=== PATIENT | male | born 1955 | race Caucasian/White ===

== ENCOUNTER 2023-07-12 14:17 | Outpatient (OUT) | payer MEDICARE, SELFPAY ==
--- NOTE | 2023-07-12 14:25 | ECG_ITS ---
[facility] Test Date: 2023-07-12 Pat Name: NATHAN ALBARRAN Department: Room: - Gender: Male [employer]: : 1955 Requested By: EDWARD GILLESPIE Order Number: [id number] Reading MD: AN FRANCE Measurements Intervals [place] Rate: 68 P: 15 NH: 213 QRS: 8 QRSD: 92 T: 36 QT: 376 QTc: 401 Interpretive Statements SINUS RHYTHM WITH FIRST DEGREE AV BLOCK Compared to ECG 02/03/2021 09:45:38 First degree AV block now present Electronically Signed On 07-12-2023 21:49:24 EDT by AN FRANCE
[2023-07-12 15:21] LABS: Basophils Absolute Auto 0.1 10^3/uL (0.0-0.1); Basophils Percent Auto 1.2 % (0.2-2.0); Eosinophils Absolute Auto 0.2 10^3/uL (0.0-0.7); Eosinophils Percent Auto 2.7 % (0.9-7.0); Hematocrit 48.2 % (42.0-54.0); Hemoglobin 16.5 g/dL (14.0-18.0); Immature Granulocytes Abs Auto 0.02 10^3/uL (0.00-0.03); Immature Granulocytes Pct Auto 0.3 % (0.0-0.5); Lymphocytes Absolute Auto 1.4 10^3/uL (1.2-3.8); Lymphocytes Percent Auto 20.5 % (20.5-60.0); Mean Corpuscular HGB Conc 34.2 g/dL (29.9-35.2); Mean Corpuscular Hemoglobin 31.8 pg (25.9-34.0); Mean Corpuscular Volume 92.9 fL (80.0-94.0); Monocytes Absolute Auto 0.6 10^3/uL (0.3-0.8); Monocytes Percent Auto 8.3 % (1.7-12.0); Neutrophils Absolute Auto 4.6 10^3/uL (1.4-6.5); Platelet Count 173 10^3/uL (150-450); Red Blood Count 5.19 10^6/uL (4.70-6.10); Red Cell Distribution Width 13.1 % (11.0-15.0); White Blood Count 6.8 10^3/uL (4.0-11.0)
[2023-07-12 15:30] LABS: Alanine Aminotransferase 40 U/L (16-63); Albumin Globulin Ratio 1.1; Albumin Level 3.4 g/dL (3.4-5.0); Alkaline Phosphatase 44 U/L (46-116); Anion Gap 13.4; Aspartate Amino Transferase 26 U/L (15-37); BUN Creatinine Ratio 12.2; Bilirubin Total 0.5 mg/dL (0.2-1.0); Calcium 8.4 mg/dL (8.5-10.1); Carbon Dioxide 24.5 mmol/L (21.0-32.0); Chloride 106 mmol/L (98-107); Estimated GFR (African America >60 (>=60); Estimated GFR (Non-African Ame >60 (>=60); Globulin 3.2 g/dL; Glucose 140 mg/dL (74-106); Potassium 3.9 mmol/L (3.5-5.1); Sodium 140 mmol/L (136-145); Total Protein 6.6 g/dL (6.4-8.2)
[2023-07-12 15:34] LABS: INR 1.02; Prothrombin Time 10.8 sec (9.0-11.6)
== END 2023-07-12 14:18 | disposition home or self-care (01) ==
LOC: PST 14:22
PROVIDERS: Visit Provider Urology
DX: Z01.810 Encounter for preprocedural cardiovascular examination (principal); Z01.812 Encounter for preprocedural laboratory examination; N20.0 Calculus of kidney
CPT/HCPCS: 80053; 85025; 85610; 85730; 93005

== ENCOUNTER 2023-07-26 06:35 | Day surgery (SDC) | payer MEDICARE, SELFPAY ==
[2023-07-12 14:35] VITALS: BP 121/69; PULSE 92; RESP 16; TEMP 36.3; O2SAT 97; BMI 28.6
--- NOTE | 2023-07-16 10:13 | CM.NOTE ---
Received a notification from the hospital oncology social work that this patient has transportation issues and wanted to stay in the hospital after his procedure due to lack of transportation. I did contact this patient and he stated he could get his neighbor to bring him. When asked if the neighbor can stay with him here at the hospital and take him home after the outpatient procedure, he stated well, I am not sure the transmission will make it in the car. I asked the patient how will the car get home from here if the neighbor drives it here, he continued to say I don't know. I am on a limited income. I informed the patient that insurance companies usually do not allow for a patient to stay in the hospital due to transportation issues overnight. I informed the patient if he arrives and does need assistance with transportation, the hospital could help him make arrangements. I offered the number to [employer], the patient denied stating he is not sure how that would work. I stated he has 10 days prior to his surgery to make arrangements. The patient mentioned he lives in [place] and I suggested he speak with Dr. Calloway or his office to see if the procedure could be done closer to his home due to his transportation issues. The patient did not want to make any calls for this nor to try and arrange his own transportation but did call the hospital to see if he could spend the night. I again offered other assistance to give him phone numbers of other transportation companies and the patient denied at this time.
[2023-07-26] VITALS (14 sets, daily range): BP systolic 103–127; BP diastolic 56–73; PULSE 65–102; RESP 14–20; TEMP 36.4–36.6; O2SAT 93–95; BMI 29.2
--- OUTSIDE RECORDS SUMMARY | 2023-07-26 06:39 | XMS_ITS | CCD ---
Author Organization [facility] Care Team Providers Care Regulatory Affairs Director Name Role Phone VERNA, DR LEON Admitting Unavailable CALLOWAY, DR LEON Attending Unavailable [facility] Primary Care Unavaila ble CALLOWAY, DR LEON Consulting Unavailable BARBARA, DEN Consulting Unavailable DORKOSKIE, ANA Consulting Unavailable CALLOWAY, DR LEON Admitting Unavailable CALLOWAY, DR LEON Attending Unavailable CALLOWAY, DR LEON Consulting Unavailable CALLOWAY, DR LEON Admitting Unavailable CALLOWAY, DR ELON Attending Unavailable [facility] Primary Care Unavaila ble CALLOWAY, DR LEON Consulting Unavailable [facility], . Primary Care Physician [phone] [facility] Primary Care Provider ILIR Moeller Emergency Provider [facility] Primary Care Provider ILIR Moeller Emergency Provider MD Edward Calloway Attending Provider [phone] [facility] Primary Care Provider Charu, [facility] Kylie E Emergency Provider DO Boris Zayas Attending Provider [phone] [facility] Primary Care Provider [phone] Charu, [employer] Kylie E Emergency Provider DO Boris Zayas Referring Provider DO Manfred Foster Attending Provider ILIR Fregoso Emergency Provider DO Edward Sandoval Emergency Provider MD Corie Dee Attending Provider DO Phil Castaneda Emergency Provider [facility] Primary Care Provider DO Boris Zayas Other Provider MD Elicia Malone Jr Emergency Provider DO Boris Zayas Attending Provider [facility] Primary Care Provider [phone] NO FAMILY, PHYSICIAN Primary Care Provider Unava ilable ILIR De Leon Attending Provider ILIR De Leon Attending Provider MD Edward Calloway Attending Provider [phone] [facility] Primary Care Provider MD Edward Calloway Attending Provider ILIR De Leon Attending Provider DO Boris Zayas Referring Provider ILIR De Leon Attending Provider DO Boris Zayas Referring Provider [facility] Primary Care Provider [phone] DO uJaquin Mendez Emergency Provider VICTORINO Tee Emergency Provider DO Phil Castaneda Emergency Provider [facility] Primary Care Provider Charu [facility] Kyl[facility] E Emergency Provider [phone] MD Edward Calloway Attending Provider [phone] Edward CALLOWAY Attending Unavailable Edward CALLOWAY Attending Unavailable Edward CALLOWAY Attending Unavailable Edward CALLOWAY Attending Unavailable [facility] Primary Care Provider DO Juaquin Mendez Emergency Provider VICTORINO Tee Emergency Provider DO Phil Castaneda Emergency Provider [phone] Charu [facility] Kylie E Emergency Provider MD Edward Calloway Attending Provider Speedy - S, DO Derrell Manuel Attending Provider DO Boris Zayas Other Provider Edward Calloway Attending Unavailable Edward Calloway Admitting [facility]available [facility] Primary Care Unavaila ble [facility] Primary Care Unavaila ble Bullimprateek, Kylie E Attending Unavailable Bullimore, Kylie E Admitting Unavailable [facility] Primary Care Unavaila ble Valerio Tee Attending Unavailable Valerio Tee Admitting Unavailable [facility] Primary Care Unavaila ble Phil Castaneda Attending Unavailable Phil Castaneda Admitting Unavailable Elicia Malone Jr Attending Unavailable Elicia Malone Jr Admitting Unavailable [facility] Primary Care Unavaila ble [facility] Primary Care Unavaila ble Phil Castaneda Attending Unavailable Phil Castaneda Admitting Unavailable [facility] Primary Care Unavaila ble Juaquin Mendez Attending Unavailable Juaquin Mendez Admitting Unavailable [facility] Primary Care Unavaila ble Phil Castaneda A Admitting Unavailable Phil Castaneda Attending Unavailable [facility] Primary Care Unavaila ble Edward Sandoval Admitting Unavailable Edward Sandoval Attending Unavailable Boris Zayas Referring Unavailable Che De Leon Attending Unavailab le Che De Leon Admitting Unavailab le [facility] Primary Care Unavaila ble [facility] Primary Care Unavaila ble Edward Sandoval Attending Unavailable Edward Sandoval Admitting Unavailable [facility] Primary Care Unavaila ble Edward Calloway Attending Unavailable Edward Calloway Admitting Unavailable [facility] Primary Care Unavaila ble Edward Calloway Admitting Unavailable Edward Calloway Attending Unavailable [facility] Primary Care Unavaila ble Robertck - Amber, Derrell Manuel Attending Unava ilable Boris Zayas Consulting Unavailable [facility] - [facility], Derrell Manuel Admitting Unava ilable [facility] Primary Care Unavaila ble Ketverttodd, Corie Attending Unavailable Boris Zayas Consulting Unavailable Beenavertis, Corie Admitting Unavailable Boris Zayas Attending Unavailable Boris Zayas Admitting Unavailable NO FAMILY, PHYSICIAN Primary Care Unavailable Allergies Allergy Classification Reported Allergen(s) Allergy Type Date of Onset Reaction(s) Facility (1 source) bee venom Drug allergy (disorder) 7 [facility] (20 sources) GRAPEFRUIT EXTRACT; Translations: [Grapefruit] Drug Allergy 2 Swelling (morphologic abnormality) [facility] (1 source) Latex Drug allergy (disorder) [facility] (6 sources) Bee/Wasp/Ant venom; Translations: [Bee Stings] Drug allergy Swelling (morphologic abnormality) [facility] (19 sources) bee venom protein (honey bee); Translations: [bee venom protein (honey bee)] Allergy to substance 2 Anaphylaxis [facility] (1 source) GRAPEFRUIT EXTRACT Drug Allergy 4 [facility] Medications Current Medications Medication Drug Class(es) Dates Sig (Normalized) Sig (Original) atorvastatin 40 mg oral tablet (20 sources) HMG-CoA Reductase Inhibitor Start: 08-07-2022 take 40 mg by mouth once daily Atorvastatin Active 40 MG PO Daily August 07, 2022 12:00am Start: 06-02-2019 End: 06-15-2022 take 40 mg by mouth once daily Atorvastatin Discontinu ed 40 MG PO Daily June 02, 2019 1:00am June 15, 2022 2:47pm lisinopril 40 mg oral tablet (20 sources) Angiotensin Converting Enzyme Inhibitor Start: 06-11-2019 take 1 tablet by mouth once daily lisinopril 40 mg Tab 40 mg = 1 tab(s), Oral, Daily Start Date: 06/11/19 Status: Ordered Start: 08-24-2017 take 20 mg by mouth once daily at bedtime Lisinopril Active 20 MG PO Daily at bedtime August 24, 2017 12:00am Start: 08-24-2017 take 40 mg by mouth once daily at bedtime Lisinopril Active 40 MG PO Daily at bedtime August 24, 2017 12:00am [place] (1 source) Start: 06-04-2019 take 1 mg by mouth three times daily lithium 300 mg Cap mg cap(s), Oral, TID, Refills(s) 0 Start Date: 06/04/19 Status: Ordered metFORMIN hydrochloride 500 mg oral tablet (18 sources) Biguanide Start: 06-15-2022 take 500 mg by mouth once daily Metformin Active 500 MG PO Daily June 15, 2022 1:00am omeprazole 40 mg delayed release oral capsule (20 sources) Proton Pump Inhibitor Start: 06-11-2019 take 40 mg by mouth once daily Omeprazole Active 40 MG PO Daily June 14, 2019 1:00am omeprazole 40 mg Cap-DR (1 source) Start: 06-11-2019 take 1 capsule by mouth once daily omeprazole 40 mg Cap-DR 40 mg = 1 cap(s), Oral, Daily Start Date: 06/11/19 Status: Ordered polyethylene glycol 3350 61417 mg powder for oral solution (4 sources) Osmotic Laxative Start: 05-09-2023 Polyethylene Glycol 3350 (Miralax) 17 gram/dose powder Active 17 GM PO Twice daily 238 May 09, 2023 1:00am mix into 4-8 oz. of any hot/cold/room temp. beverage; use immediately sulfamethoxazole 800 mg / trimethoprim 160 mg oral tablet (1 source) Dihydrofolate Reductase Inhibitor Antibacterial, Sulfonamide Antimicrobial Start: 08-30-2022 End: 09-20-2022 take 1 tablet by mouth twice daily Bactrim D.S. 800 mg-160 mg Tab 1 tab(s), Oral, BID for 3 week(s), 42 tab(s), Refill(s) 0, [facility] [id number], 174, cm, 08/30/22 13:37:00 EDT, Height/Length Dosing, 85, kg, 08/30/22 13:37:00 EDT, Weight Dosing Start Date: 08/30/22 Stop Date: 09/20/22 Status: Ordered tamsulosin hydrochloride 0.4 mg oral capsule (20 sources) alpha-Adrenergic Johanna Start: 11-22-2022 End: 11-17-2023 take 1 capsule by mouth twice daily tamsulosin 0.4 mg Cap 0.4 mg = 1 cap(s), Oral, BID, X 90 day(s), # 180 cap(s), Refills(s) 3, Pharmacy: [facility] [id number], 174, cm, 11/22/22 10:55:00 EDT, Height/Length Dosing, 79.5, kg, 11/22/22 10:55:00 EDT, Weight Dosing Start Date: 11/22/22 Stop Date: 11/17/23 Status: Ordered Start: 08-30-2022 take 1 capsule by [place] twice daily tamsulosin 0.4 mg Cap 0.4 mg = 1 cap(s), Oral, BID, # 180 caplet(s), Refills(s) 3, Pharmacy: [facility] [id number], 174, cm, 08/30/22 13:37:00 EDT, Height/Length Dosing, 85, kg, 08/30/22 13:37:00 EDT, Weight Dosing Start Date: 08/30/22 Status: Ordered Start: 08-07-2022 End: 11-01-2022 take 0.4 mg by mouth once daily Tamsulosin Discontinue d 0.4 MG PO Daily August 07, 2022 12:00am November 01, 2022 11:55am Start: 02-28-2022 take 1 capsule by [facility] [place] once daily tamsulosin 0.4 mg Cap 0.4 mg = 1 cap(s), Oral, Daily, # 90 cap(s), Refills(s) 3, Pharmacy: [facility] [id number], 174, cm, 02/28/22 9:04:00 EDT, Height/Length Dosing, 85, kg, 02/28/22 9:04:00 EDT, Weight Dosing Start Date: 02/28/22 Status: Ordered Start: 06-03-2019 End: 03-03-2020 Tamsulosin (Flomax) 0.4 mg capsule,extended release 24hr Discontinued 0.4 MG PO Daily August 07, 2019 12:00am March 03, 2020 10:18pm administer 30 minutes after same meal each day until stone passes Start: 07-02-2018 End: 05-19-2019 take 0.4 mg by mouth once daily at bedtime Tamsulosin Discontinued 0.4 MG PO Daily at bedtime July 02, 2018 1:00am May 19, 2019 9:54pm Completed/Discontinued Medications Medication Drug Class(es) Dates Sig (Normalized) Sig (Original) acetaminophen 325 mg / HYDROcodone bitartrate 5 mg oral tablet (20 sources) Opioid Agonist Start: 07-09-2019 End: 08-07-2019 take 1 tablet by mouth every four to six hours Hydrocodone-Acetami nophen ([place]) 5-325 mg tablet Discontinued 1 TAB PO EVERY 4-6 HOURS 10 3 July 09, 2019 August 07, 2019 3:15am Start: 06-04-2019 take 1 tablet by breanna th every six hours acetaminophen-hydrocodone 325 mg-5 mg or al tablet tab(s), Oral, q6hr, Refill(s) 0 Start Date: 06/04/19 Status: Ordered Start: 06-03-2019 End: 06-15-2019 Hydrocodone-Acetaminophen ([place]) 5-325 mg Tablet Discontinued 1 TAB PO EVERY 3-4 HOURS June 14, 2019 1:00am June 15, 2019 11:40am Start: 08-26-2018 End: 05-19-2019 take 1 tablet by mouth every four to six hours Hydrocodone-Acetaminophen ([place]) 5-325 mg Tablet Discontinued 1 TAB PO EVERY 4-6 HOURS 5 August 26, 2018 May 19, 2019 9:54pm Start: 05-11-2018 End: 07-02-2018 take 1 tablet by mouth every six hours Hydrocodone-Acetaminophen ([place]) 5-325 mg tablet Discontinued 1 TAB PO Q6H 10 May 11, 2018 July 02, 2018 12:27pm acetaminophen 325 mg / oxyCODONE hydrochloride 5 mg oral tablet (20 sources) Opioid Agonist Start: 08-07-2019 End: 08-15-2019 take 1 tablet by mouth every six hours Oxycodone-Acetaminophen (Percocet) 5-325 mg tablet Discontinued 1 TAB PO Q6H 20 5 August 07, 2019 August 15, 2019 1:35pm Start: 08-12-2018 End: 05-19-2019 take 1-2 tablets by mouth every six hours as needed for pain Oxycodone-Acetaminophen (Percocet) 5-325 mg tablet Discontinued 2 TAB PO Q6H 45 7 August 12, 2018 May 19, 2019 9:54pm 1-2 tabs po q 6 hours prn pain aspirin 81 mg chewable tablet (20 sources) Platelet Aggregation Inhibitor, Nonsteroidal Anti-inflammatory Drug Start: 07-09-2019 End: 02-20-2021 take 1 tablet by mouth once daily Aspirin (Aspirin Childrens) 81 mg Tablet,Chewable Discontinued 81 MG PO Daily July 09, 2019 12:00am February 20, 2021 1:40am Start: 06-04-2019 aspirin Refill s(s) 0 Start Date: 06/04/19 Status: Ordered Start: 08-12-2018 End: 07-09-2019 take 1 tablet by mouth once daily Aspirin (Aspir-81) 81 mg Tablet,Delayed Release (Dr/Ec) Discontinued 81 MG PO Daily August 12, 2018 12:00am July 09, 2019 7:58pm atropine sulfate 0.025 mg / diphenoxylate hydrochloride 2.5 mg oral tablet (20 sources) Anticholinergic, Cholinergic Muscarinic Antagonist, Antidiarrheal Start: 08-07-2019 End: 08-07-2019 Diphenoxylate-Atropine Discontinued TABLET August 07, 2019 12:00am August 07, 2019 3:15am Start: 07-05-2019 End: 07-09-2019 take 1 tablet by mouth every eight hours Diphenoxylate-Atropine (Lomotil) 2.5-0.025 mg tablet Discontinued 1 TAB PO Q8H 10 July 05, 2019 1:00am July 09, 2019 7:59pm cephalexin 500 mg oral capsule (20 sources) Cephalosporin Antibacterial Start: 04-21-2023 End: 05-09-2023 take 500 mg by mouth every six hours Cephalexin Discontinued 500 MG PO Q6H 28 April 21, 2023 1:00am May 09, 2023 2:07am Start: 11-05-2022 End: 02-15-2023 take 500 mg by mouth every six hours Cephalexin Discontinued 500 MG PO Q6H 28 November 05, 2022 12:00am February 15, 2023 10:33am Start: 09-03-2022 End: 11-01-2022 take 500 mg by mouth every six hours Cephalexin Discontinued 500 MG PO Q6H 28 September 03, 2022 12:00am November 01, 2022 11:56am Start: 07-09-2019 End: 08-07-2019 take 1 capsule by mouth twice daily Cephalexin (Keflex) 500 mg capsule Discontinued 500 MG PO Twice daily 14 July 09, 2019 12:00am August 07, 2019 3:15am Start: 06-04-2019 take 1 mg by mouth e very twelve hours Keflex 500 mg Cap mg cap(s), Oral, q12hr, Refills(s) 0 Start Date: 06/04/19 Status: Ordered Start: 06-03-2019 End: 06-14-2019 take 1 capsule by mouth twice daily Cephalexin (Keflex) 500 mg capsule Discontinued 500 MG PO Twice daily 14 June 03, 2019 1:00am June 14, 2019 2:37am Start: 11-15-2017 End: 11-22-2017 take 500 mg by mouth three times daily Cephalexin Discontinued 500 MG PO Three times daily 17 11November 15, 2017 12:00am November 22, 2017 12:01am space evenly during waking hours ciprofloxacin 500 mg oral tablet (20 sources) Quinolone Antimicrobial Start: 08-02-2021 End: 02-12-2022 take 1 tablet by mouth every two hours Ciprofloxacin Hcl (Cipro) 500 mg tablet Discontinued 500 MG PO Q12H August 02, 2021 12:00am February 12, 2022 12:54pm administer dose at least 2 hrs before/6 hrs after dairy products, calcium, zinc, and/or iron-containing products Start: 12-24-2017 End: 05-10-2018 take 300 mg by mouth three times daily Ciprofloxacin Hcl Discontinued 300 MG PO Three times daily December 24, 2017 12:00am May 11, 2018 12:33am cyclobenzaprine hydrochloride 10 mg oral tablet (20 sources) Muscle Relaxant Start: 06-14-2019 End: 07-05-2019 take 10 mg by mouth once daily at bedtime Cyclobenzaprine Discontinued 10 MG PO Daily at bedtime June 14, 2019 1:00am July 05, 2019 10:23am Start: 05-19-2019 End: 02-20-2021 take 10 mg by mouth three times daily Cyclobenzaprine Discontinued 10 MG PO Three times daily December 20, 2020 12:00am February 20, 2021 1:40am diphenhydrAMINE hydrochloride 25 mg oral capsule (20 sources) Histamine-1 Receptor Antagonist Start: 02-12-2022 End: 06-15-2022 take 1 capsule by mouth three times daily Diphenhydramine Hcl (Benadryl) 25 mg capsule Discontinued 25 MG PO Three times daily February 12, 2022 12:00am June 15, 2022 2:46pm Start: 12-24-2017 End: 05-10-2018 Diphenhydramine Hcl (Benadry l) 25 mg capsule Discontinued 25 MG PO every 6 to 8 hours December 24, 2017 12:00am May 11, 2018 12:32am docusate sodium 50 mg / sennosides, fdc 8.6 mg oral tablet (20 sources) Start: 08-07-2019 End: 06-15-2022 take 2 tablets by mouth once daily at bedtime Sennosides-Docusate Sodium (Senna Plus) 8.6-50 mg tablet Discontinued 2 TAB PO Daily at bedtime February 20, 2021 12:00am June 15, 2022 2:46pm Start: 05-11-2018 End: 07-02-2018 take 2 tablets by mouth once daily Sennosides-Docusate Sodium (Senna Laxative-Stool Softener) 8.6-50 mg tablet Discontinued 2 TAB PO Daily May 11, 2018 1:00am July 02, 2018 12:28pm famotidine 40 mg oral tablet (20 sources) Histamine-2 Receptor Antagonist Start: 03-03-2020 End: 02-20-2021 take 1 tablet by mouth once daily Famotidine (Pepcid) 40 mg tablet Discontinued 40 MG PO Daily March 03, 2020 1:00am February 20, 2021 1:40am Start: 05-17-2018 End: 08-26-2018 take 1 tablet by mouth twice daily Famotidine (Pepcid) 20 mg tablet Discontinued 20 MG PO Twice daily July 02, 2018 12:28pm August 26, 2018 8:48pm ferrous sulfate 325 mg oral tablet (10 sources) Start: 11-01-2022 End: 05-09-2023 Ferrous Sulfate Discontinued 325 MG PO Q48H November 01, 2022 12:00am May 09, 2023 2:07am hydrocortisone 10 mg/ml topical cream (18 sources) Corticosteroid Start: 10-19-2021 End: 02-12-2022 Hydrocortisone Discontinued 1 APPLIC TOPICAL Daily 28.35 October 19, 2021 12:00am February 12, 2022 12:54pm hyoscyamine sulfate 0.125 mg disintegrating oral tablet (18 sources) Start: 03-19-2021 End: 04-05-2022 take 1 tablet under the tongue every four hours Hyoscyamine Sulfate (Anaspaz) 0.125 mg Tablet,Disintegrati ng Discontinued 0.125 MG SUBLINGUAL Q4H 30 5 March 19, 2021 1:41pm August 02, 2021 10:33am ibuprofen 600 mg oral tablet (20 sources) Nonsteroidal Anti-inflammatory Drug Start: 08-07-2019 End: 08-20-2019 take 600 mg by mouth every eight hours Ibuprofen Discontinued 600 MG PO Q8H August 07, 2019 12:00am August 20, 2019 1:05pm Start: 06-22-2019 End: 08-07-2019 take 800 mg by mouth three times daily Ibuprofen Discontinued 800 MG PO Three times daily June 22, 2019 1:00am August 07, 2019 3:15am Start: 12-24-2017 End: 05-10-2018 take 800 mg by mouth every six hours Ibuprofen Discontinued 800 MG PO Q6H December 24, 2017 12:00am May 11, 2018 12:32am ketorolac tromethamine 10 mg oral tablet (18 sources) Nonsteroidal Anti-inflammatory Drug, Cyclooxygenase Inhibitor Start: 07-09-2019 End: 08-07-2019 take 10 mg by mouth every eight hours Ketorolac Discontinued 10 MG PO Q8H 9 July 09, 2019 12:00am August 07, 2019 3:15am levoFLOXacin 500 mg oral tablet (18 sources) Quinolone Antimicrobial Start: 05-11-2018 End: 07-02-2018 take 1 tablet by mouth every twenty-four hours Levofloxacin (Levaquin) 500 mg tablet Discontinued 500 MG PO Q24H 7 7 May 11, 2018 1:00am July 02, 2018 12:27pm lithium carbonate 300 mg oral capsule (18 sources) Start: 08-24-2017 End: 02-20-2021 take 300 mg by mouth twice daily [place] Carbonate Discontinued 300 MG PO Twice daily August 24, 2017 12:00am February 20, 2021 1:39am metoprolol tartrate 25 mg oral tablet (18 sources) beta-Adrenergic Johanna Start: 08-20-2019 End: 02-20-2021 take 25 mg by mouth twice daily Metoprolol Tartrate Discontinued 25 MG PO Twice daily 60 August 20, 2019 12:00am February 20, 2021 1:40am metroNIDAZOLE 500 mg oral tablet (18 sources) Nitroimidazole Antimicrobial Start: 05-11-2018 End: 07-02-2018 take 1 tablet by mouth three times daily Metronidazole (Flagyl) 500 mg tablet Discontinued 500 MG PO Three times daily 17 11May 11, 2018 1:00am July 02, 2018 12:27pm naproxen 500 mg oral tablet (20 sources) Nonsteroidal Anti-inflammatory Drug Start: 05-19-2019 End: 06-17-2019 take 1 tablet by mouth twice daily Naproxen (Naprosyn) 500 mg tablet Discontinued 500 MG PO Twice daily May 19, 2019 1:00am June 17, 2019 3:59pm Start: 08-24-2017 End: 11-15-2017 take 1 tablet by mouth twice daily at mealtime Naproxen (Naprosyn) 500 mg tablet Discontinued 500 MG PO Twice daily August 24, 2017 12:00am November 15, 2017 12:44pm administer with food or milk ondansetron 4 mg disintegrating oral tablet (20 sources) Serotonin-3 Receptor Antagonist Start: 08-07-2019 End: 02-20-2021 take 4 mg by mouth every eight hours Ondansetron Discontinued 4 MG PO Q8H August 07, 2019 12:00am February 20, 2021 1:41am Start: 07-09-2019 End: 08-07-2019 Ondansetron Hcl (Zofran) 4 m g tablet Discontinued 4 MG PO every 6 to 8 hours July 09, 2019 12:00am August 07, 2019 3:15am Start: 06-22-2019 End: 07-05-2019 Ondansetron Discontinued 4 M G PO every 6 to 8 hours June 22, 2019 1:00am July 05, 2019 10:24am Start: 06-04-2019 take 1 mg by mouth t hree times daily ondansetron 4 mg Dis Tab mg tab(s), Oral, TID, Refills(s) 0 Start Date: 06/04/19 Status: Ordered Start: 06-03-2019 End: 06-14-2019 Ondansetron Hcl (Zofran) 4 m g tablet Discontinued 4 MG PO every 6 to 8 hours June 03, 2019 1:00am June 14, 2019 2:37am Start: 05-11-2018 End: 07-02-2018 take 4 mg by mouth every eight hours Ondansetron Discontinued 4 MG PO Q8H May 11, 2018 1:00am July 02, 2018 12:27pm oxybutynin chloride 5 mg oral tablet (18 sources) Cholinergic Muscarinic Antagonist Start: 08-02-2021 End: 02-12-2022 take 5 mg by mouth twice daily Oxybutynin Chloride Discontinued 5 MG PO Twice daily 60 August 02, 2021 12:00am February 12, 2022 12:55pm predniSONE 20 mg oral tablet (20 sources) Start: 10-19-2021 End: 02-12-2022 take 40 mg by mouth once daily Prednisone Discontinued 40 MG PO Daily 8 October 19, 2021 12:00am February 12, 2022 12:54pm Start: 03-03-2020 End: 02-20-2021 take 50 mg by mouth once daily Prednisone Discontinued 50 MG PO Daily 7 March 03, 2020 1:00am February 20, 2021 1:41am traMADol hydrochloride 50 mg oral tablet (18 sources) Opioid Agonist Start: 08-20-2019 End: 03-03-2020 take 0.5-1 tablets by mouth every six hours as needed for pain Tramadol (Ultram) 50 mg tablet Discontinued 50 MG PO Q6H 30 7 August 20, 2019 12:00am March 03, 2020 10:18pm 1/2 - 1 tab po q 6 hours prn pain 24 hr divalproex sodium 500 mg extended release oral tablet (18 sources) Mood Stabilizer, Anti-epileptic Agent Start: 03-19-2021 End: 02-12-2022 take 500 mg by mouth once daily at bedtime Divalproex Discontinued 500 MG PO Daily at bedtime 30 March 19, 2021 1:00am February 12, 2022 12:55pm Problems Active Problems Problem Classification Problem Date Documented Date Episodic/Chronic Abdominal pain (20 sources) Abdominal pain; Translations: [Left flank pain] Onset: 04-21-20 23 06-11-2019 Episodic Acute cerebrovascular disease (5 sources) Cerebrovascular accident 06-04-2019 Chronic Administrative/social admission (3 sources) Fear of urinary disease; Translations: [Person with feared health complaint in whom no diagnosis is made] 06-13-2023 Episodic Allergic reactions (20 sources) Allergic reaction; Translations: [Allergy, unspecified, initial encounter] 03-03-2020 Episodic Deficiency and other anemia (9 sources) Iron deficiency anemia; Translations: [Iron deficiency anemia, unspecified] 11-02-2022 Episodic Deficiency and other anemia (1 source) Iron deficiency anemia, unspecified; Translations: [Iron deficiency anemia, unspecified] Onset: 07-19-19 Episodic Diabetes mellitus without complication (6 sources) Diabetes mellitus; Translations: [Type 2 diabetes mellitus] 08-17-2021 Chronic Diabetes mellitus without complication (1 source) Other abnormal glucose; Translations: [Other abnormal glucose] Onset: 07-19-19 Episodic Disorders of lipid metabolism (1 source) Pure hypercholesterolemia, unspecified; Translations: [PURE HYPERCHOLESTEROLEMIA UNSPEC] Onset: 03-16-20 Chronic E Codes: Natural/environment (18 sources) Insect bite - wound; Translations: [Bitten or stung by nonvenomous insect and other nonvenomous arthropods, initial encounter] 02-12-2022 Episodic Epilepsy; convulsions (5 sources) Epilepsy 06-04-2019 Chronic Essential hypertension (7 sources) Essential (primary) hypertension; Translations: [Hypertensive disorder] Onset: 03-16-2006-04-2019 Chronic Fluid and electrolyte disorders (18 sources) Hypokalemia; Translations: [Hypokalemia] 08-17-2019 Episodic Gastrointestinal hemorrhage (18 sources) Gastrointestinal hemorrhage; Translations: [Hemorrhage of anus and rectum] 07-03-2019 Episodic Genitourinary symptoms and ill-defined conditions (5 sources) Post-micturition incontinence 06-11-2019 Chronic Genitourinary symptoms and ill-defined conditions (20 sources) Hematuria, unspecified; Translations: [Dysuria] Onset: 03-16-2006-11-2019 Episodic Headache; including migraine (5 sources) Headache 06-04-2019 Episodic Headache; including migraine (1 source) Headache; including migraine; Translations: [Headache, unspecified] Onset: 08-08-19 Hyperplasia of prostate (15 sources) Benign prostatic hyperplasia with lower urinary tract symptoms; Translations: [Benign prostatic hypertrophy with outflow obstruction] Onset: 02-09-20 Chronic Inflammatory conditions of male genital organs (1 source) Chronic prostatitis; Translations: [CHRONIC PROSTATITIS] Onset: 03-16-20 Chronic Inflammatory conditions of male genital organs (6 sources) Acute prostatitis; Translations: [Prostatitis] Onset: 03-16-2003-17-2020 Episodic Intestinal obstruction without hernia (18 sources) Intestinal obstruction; Translations: [Unspecified intestinal obstruction, unspecified as to partial versus complete obstruction] 06-14-2019 Episodic Mood disorders (20 sources) Major depressive disorder, single episode, unspecified; Translations: [Depressive disorder] Onset: 02-09-2006-04-2019 Chronic Mood disorders (1 source) Mood disorders; Translations: [DEPRESSION UNSPECIFIED] Onset: 03-16-20 Nausea and vomiting (18 sources) Nausea and vomiting; Translations: [Nausea with vomiting, unspecified] 08-15-2019 Episodic Osteoarthritis (6 sources) Unspecified osteoarthritis, unspecified site; Translations: [Arthritis] Onset: 03-16-2006-04-2019 Chronic Other aftercare (1 source) 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; Translations: [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 USE ANTICOAGULANTS] Onset: 03-16-20 Episodic Other aftercare (1 source) Other cider maker (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) 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 therapy; Translations: [OTH 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 CURRENT DRUG THERAPY] Onset: 03-16-20 Episodic Other and unspecified benign neoplasm (6 sources) Dysplasia of colon; Translations: [Polyp of colon] 02-16-2023 Episodic Other and unspecified benign neoplasm (3 sources) Polyp of colon; Translations: [Benign neoplasm of colon] 02-16-2023 Episodic Other circulatory disease (1 source) Personal history of transient ischemic attack (TIA), and cerebral infarction without residual deficits; Translations: [PERS HX TIA AND CI NO RESID DEFICIT] Onset: 03-16-20 Episodic Other diseases of kidney and ureters (2 sources) Urinary tract obstruction; Translations: [Other obstructive and reflux uropathy] Onset: 08-24-19 Episodic Other diseases of kidney and ureters (18 sources) Hydronephrosis co-occurrent and due to calculus of kidney and ureter; Translations: [Hydronephrosis with renal and ureteral calculous obstruction] 08-07-2019 Episodic Other diseases of kidney and ureters (18 sources) Hydroureter; Translations: [Hydroureter] 08-02-2021 Episodic Other disorders of stomach and duodenum (18 sources) Dilatation of gastrointestinal tract; Translations: [Other diseases of stomach and duodenum] 06-14-2019 Episodic Other eye disorders (13 sources) Subconjunctival hemorrhage; Translations: [Conjunctival hemorrhage, right eye] 06-15-2022 Episodic Other eye disorders (3 sources) Subconjunctival hemorrhage of right eye; Translations: [Conjunctival hemorrhage, right eye] 06-15-2022 Episodic Other gastrointestinal disorders (18 sources) Diarrhea; Translations: [Diarrhea, unspecified] 07-05-2019 Episodic Other gastrointestinal disorders (20 sources) Constipation; Translations: [Constipation, unspecified] 02-20-2021 Episodic Other gastrointestinal disorders (8 sources) Dark stools; Translations: [Other fecal abnormalities] 11-05-2022 Episodic Other injuries and conditions due to external causes (1 source) Foreign body in bladder; Translations: [Foreign body in bladder, initial encounter] Onset: 08-24-19 Episodic Other injuries and conditions due to external causes (5 sources) Injury of head 06-04-2019 Episodic Other injuries and conditions due to external causes (13 sources) Closed injury of head; Translations: [Unspecified injury of head, initial encounter] 08-07-2022 Episodic Other injuries and conditions due to external causes (12 sources) Zipper injury of penis; Translations: [Unspecified injury of external genitals, initial encounter] 09-03-2022 Episodic Other male genital disorders (1 source) Other specified disorders of penis; Translations: [Other specified disorders of penis] Onset: 09-04-19 Chronic Other nutritional; endocrine; and metabolic disorders (5 sources) Body mass index 25-29 - overweight 01-05-2021 Episodic Poisoning by nonmedicinal substances (18 sources) [place] poisoning; Translations: [Toxic effect of other metals, accidental (unintentional), initial encounter] 08-15-2019 Chronic Residual codes; unclassified (18 sources) Urinary catheter in situ; Translations: [Presence of other specified devices] 02-20-2021 Episodic Residual codes; unclassified (18 sources) Edema of foot; Translations: [Localized edema] 02-20-2021 Episodic Sprains and strains (20 sources) Strain of back muscle; Translations: [Strain of muscle, fascia and tendon of lower back, initial encounter] 12-20-2020 Episodic Substance-related disorders (3 sources) Nicotine dependence, cigarettes, uncomplicated; Translations: [Smoker] Onset: 03-16-20 21 11-22-2022 Chronic Comment on above: Added secondary to d ocumentation in Social History. Superficial injury; contusion (20 sources) Contusion of knee; Translations: [Contusion of left knee, initial encounter] 08-24-2017 Episodic Unclassified (1 source) CONTACT W/AND (SUSP) EXPOS COVID-19; Translations: [CONTACT W/AND (SUSP) EXPOS COVID-19] Onset: 02-11-20 Unclassified (5 sources) Asymptomatic microscopic hematuria 01-05-2021 Unclassified (5 sources) History of clinical finding in subject 06-04-2019 Unclassified (1 source) Benign prostatic hyperplasia with lower urinary tract symptoms; Translations: [Benign prostatic hyperplasia with lower urinary tract symptoms] Onset: 11-22-19 Unclassified (1 source) Encounter for screening for other viral diseases; Translations: [Encounter for screening for other viral diseases] Onset: 08-22-19 Urinary tract infections (20 sources) Urinary tract infectious disease; Translations: [Urinary tract infection, site not specified] Onset: 08-31-19 Episodic Viral infection (14 sources) Viral disease; Translations: [Viral infection, unspecified] 07-14-2022 Episodic Past or Other Problems Problem Classification Problem Date Documented Da te Episodic/Chronic Calculus of urinary tract (20 sources) Kidney stone; Translations: [Calculus of kidney] Onset: 08-23-2021 Episodic Nutritional deficiencies (16 sources) Iron deficiency; Translations: [Iron deficiency] Onset: 02-16-2023 11-02-2022 Episodic Other gastrointestinal disorders (1 source) Other fecal abnormalities; Translations: [Other fecal abnormalities] Onset: 11-05-2022 Episodic Spondylosis; intervertebral disc disorders; other back problems (20 sources) Thoracic back pain; Translations: [Pain in thoracic spine] Onset: 09-17-2022 05-19-2019 Episodic Results Test Name Value Interpretation Reference Range Facility Alanine aminotransferase [En zymatic activity/volume] in Serum or PlasmaOrdered By: Boris Zayas on 07-19-2023 ALT [Catalytic activity/Vol] 38 U/L 7-52 [facility] Albumin [Mass/volume] in Ser um or Plasma by Bromocresol green (BCG) dye binding methoOrdered By: Boris Zayas on 07-19-2023 Albumin BCG dye [Mass/Vol] 4.2 g/dL 3.5-5.7 [facility] Alkaline phosphatase [Enzyma tic activity/volume] in Serum or PlasmaOrdered By: Boris Zayas on 07-19-2023 ALP [Catalytic activity/Vol] 41 U/L 34-104 [facility] Anisocytosis LM Ql (Bld)Orde red By: Boris Zayas on 07-19-2023 Anisocytosis Ql (Bld) Slight Fir [facility] Aspartate aminotransferase [ Enzymatic activity/volume] in Serum or PlasmaOrdered By: Boris Zayas on 07-19-2023 AST [Catalytic activity/Vol] 31 U/L 13-39 [facility] Basophils Auto (Bld) [#/Vol] Ordered By: Boris Zayas on 07-19-2023 Basophils (Bld) [#/Vol] 0.1 10*3/uL 0.0-0.2 [facility] Basophils/100 WBC Auto (Bld) Ordered By: Boris Zayas on 07-19-2023 Basophils/100 WBC (Bld) 1.2 % . [facility] Bilirubin.total [Mass/volume ] in Serum or PlasmaOrdered By: Boris Zayas on 07-19-2023 Bilirubin [Mass/Vol] 0.7 mg/dL 0.3-1.0 [facility] Calcium [Mass/volume] in Ser um or PlasmaOrdered By: Boris Zayas on 07-19-2023 Calcium [Mass/Vol] 9.2 mg/dL 8.6-10.[address] [facility] Carbon dioxide, total [Moles /volume] in Serum or PlasmaOrdered By: Boris Zayas on 07-19-2023 CO2 [Moles/Vol] 25.4 mmol/L 21.0-31.0 [facility] Chloride [Moles/volume] in S prasanth or PlasmaOrdered By: Boris Zayas on 07-19-2023 Chloride [Moles/Vol] 109 mmol/L 98-107 [facility] Cholesterol [Mass/volume] in Serum or PlasmaOrdered By: Boris Zayas on 03-21-2024 Cholesterol [Mass/Vol] 109 mg/dL 140-200 [facility] Comment on above: Chol less than 200 m g/dl low riskChol 201-239 mg/dl borderline riskChol 240 mg/dl and greater high risk Cholesterol in LDL Calc [Mas s/Vol]Ordered By: Boris Zayas on 07-19-2023 Cholesterol in LDL [Mass/Vol] 46 mg/dL 0-100 [facility] Comment on above: LDL ATP III CLASSIFI CATIONLDL less than 100 mg/dL OptimalLDL 100-129 mg/dL Near or above optimalLDL 130-159 mg/dL Borderline highLDL 160-189 mg/dL HighLDL greater than 189 mg/dL Very high Cholesterol in LDL [Mass/vol ume] in Serum or PlasmaOrdered By: Boris Zayas on 07-19-2023 Cholesterol in LDL [Mass/Vol] 58 mg/dL 0-100 [facility] Comment on above: LDL ATP III CLASSIFI CATIONLDL less than 100 mg/dL OptimalLDL 100-129 mg/dL Near or above optimalLDL 130-159 mg/dL Borderline highLDL 160-189 mg/dL HighLDL greater than 189 mg/dL Very high Cholesterol in VLDL Calc [Ma ss/Vol]Ordered By: Boris Zayas on 07-19-2023 Cholesterol in VLDL [Mass/Vol] 18 mg/dL [facility] Comprehensive Metabolic Pane bobby 07-19-2023 Albumin [Mass/Vol] 4.2 g/dL Normal 3.5-5.[address] [facility] Comment on above: Order Comment: Reaso n for Exam Prediabetes Reason for Exam Microcytic anemia Reason for Exam Prediabetes;Essential (primary) hypertension Performed By: #### P SATOTAL #### [facility] [address] [place] [address] [place] Albumin/Globulin [Mass ratio] 2.0 {ratio} Normal [facility] Comment on above: Order Comment: Reaso n for Exam Prediabetes Reason for Exam Microcytic anemia Reason for Exam Prediabetes;Essential (primary) hypertension Performed By: #### P SATOTAL #### [facility] [address] [place] [id number] [place] ALP [Catalytic activity/Vol] 41 U/L Normal 34-104 [facility] Comment on above: Order Comment: Reaso n for Exam Prediabetes Reason for Exam Microcytic anemia Reason for Exam Prediabetes;Essential (primary) hypertension Performed By: #### P SATOTAL #### [facility] [address] ALT [Catalytic activity/Vol] 38 U/L Normal 7-52 [facility] Comment on above: Order Comment: Reaso n for Exam Prediabetes Reason for Exam Microcytic anemia Reason for Exam Prediabetes;Essential (primary) hypertension Performed By: #### P SATOTAL #### [facility] [address] [place] [address] Anion gap [Moles/Vol] 11.7 mmol/L Normal 6.0-15.0 [facility] Comment on above: Order Comment: Reaso n for Exam Prediabetes Reason for Exam Microcytic anemia Reason for Exam Prediabetes;Essential (primary) hypertension Performed By: #### P SATOTAL #### [facility] [address] [place] [address] AST [Catalytic activity/Vol] 31 U/L Normal 13-39 [facility] Comment on above: Order Comment: Reaso n for Exam Prediabetes Reason for Exam Microcytic anemia Reason for Exam Prediabetes;Essential (primary) hypertension Performed By: #### P SATOTAL #### [facility] [address] [place] [address] [place] Bilirubin [Mass/Vol] 0.7 mg/dL Normal 0.3-1.0 [facility] Comment on above: Order Comment: Reaso n for Exam Prediabetes Reason for Exam Microcytic anemia Reason for Exam Prediabetes;Essential (primary) hypertension Performed By: #### P SATOTAL #### [facility] [address] [place] [address] [place] Calcium [Mass/Vol] 9.2 mg/dL Normal 8.6-10.[address] [facility] Comment on above: Order Comment: Reaso n for Exam Prediabetes Reason for Exam Microcytic anemia Reason for Exam Prediabetes;Essential (primary) hypertension Performed By: #### P SATOTAL #### [facility] [address] [place], [place] [id number] [facility] Chloride [Moles/Vol] 109 mmol/L High 98-107 [facility] Comment on above: Order Comment: Reaso n for Exam Prediabetes Reason for Exam Microcytic anemia Reason for Exam Prediabetes;Essential (primary) hypertension Performed By: #### P SATOTAL #### [facility] [address] CO2 [Moles/Vol] 25.4 mmol/L Normal 21.0-31.0 [facility] Comment on above: Order Comment: Reaso n for Exam Prediabetes Reason for Exam Microcytic anemia Reason for Exam Prediabetes;Essential (primary) hypertension Performed By: #### P SATOTAL #### [facility] [address] Creatinine [Mass/Vol] 0.89 mg/dL Normal 0.70-1.30 [facility] Comment on above: Order Comment: Reaso n for Exam Prediabetes Reason for Exam Microcytic anemia Reason for Exam Prediabetes;Essential (primary) hypertension Performed By: #### P SATOTAL #### [facility] [address] GFR/1.73 sq M.predicted MDRD (S/P/Bld) [Vol rate/Area] mL/min/{1.73_m2} Normal [facility] Comment on above: Order Comment: Reaso n for Exam Prediabetes Reason for Exam Microcytic anemia Reason for Exam Prediabetes;Essential (primary) hypertension Performed By: #### P SATOTAL #### [facility] [address] Globulin (S) [Mass/Vol] 2.1 g/dL Normal [facility] Comment on above: Order Comment: Reaso n for Exam Prediabetes Reason for Exam Microcytic anemia Reason for Exam Prediabetes;Essential (primary) hypertension Performed By: #### P SATOTAL #### [facility] [address] Glucose [Mass/Vol] 102 mg/dL High 70-[address] [facility] Comment on above: Order Comment: Reaso n for Exam Prediabetes Reason for Exam Microcytic anemia Reason for Exam Prediabetes;Essential (primary) hypertension Result Comment: [place] Glucose Reference Range is dependent on time and content of last meal. Glucose of more than 200 mg/dL in a nonstressed, ambulatory subject supports the diagnosis of Diabetes Mellitus. ADA recommended reference range Performed By: #### P SATOTAL #### [facility] [address] [place] [address] [place] Potassium [Moles/Vol] 4.1 mmol/L Normal 3.5-5.1 [facility] Comment on above: Order Comment: Reaso n for Exam Prediabetes Reason for Exam Microcytic anemia Reason for Exam Prediabetes;Essential (primary) hypertension Performed By: #### P SATOTAL #### [address] Protein [Mass/Vol] 6.3 g/dL Low 6.4-8.[address] [facility] Comment on above: Order Comment: Reaso n for Exam Prediabetes Reason for Exam Microcytic anemia Reason for Exam Prediabetes;Essential (primary) hypertension Performed By: #### P SATOTAL #### [facility] [address] [place] [address] [place] Sodium [Moles/Vol] 142 mmol/L Normal 136-[address] [facility] Comment on above: Order Comment: Reaso n for Exam Prediabetes Reason for Exam Microcytic anemia Reason for Exam Prediabetes;Essential (primary) hypertension Performed By: #### P SATOTAL #### [facility] [address] [place] [address] [place] Urea nitrogen [Mass/Vol] 11 mg/dL Normal 7-25 [facility] Comment on above: Order Comment: Reaso n for Exam Prediabetes Reason for Exam Microcytic anemia Reason for Exam Prediabetes;Essential (primary) hypertension Performed By: #### P SATOTAL #### [place] [address] [place] Creatinine [Mass/volume] in Serum or PlasmaOrdered By: Boris Zayas on 07-19-2023 Creatinine [Mass/Vol] 0.89 mg/dL 0.70-1.30 [facility] Eosinophils Auto (Bld) [#/Vo l]Ordered By: Boris Zayas on 07-19-2023 Eosinophils (Bld) [#/Vol] 0.3 10*3/uL 0.0-0.45 [facility] Eosinophils/100 WBC Auto (Bl d)Ordered By: Boris Zayas on 07-19-2023 Eosinophils/100 WBC (Bld) 3.5 % . [facility] Erythrocyte distribution wid th Auto (RBC) [Ratio]Ordered By: Boris Zayas on 07-19-2023 Erythrocyte distribution width (RBC) [Ratio] 13.5 % 12.0-14.8 [facility] Ferritinon 07-19-2023 Ferritin [Mass/Vol] 24.1 ng/mL Normal 23.9-336.2 [facility] Comment on above: Order Comment: Reaso n for Exam Prediabetes Reason for Exam Microcytic anemia Reason for Exam Prediabetes;Essential (primary) hypertension Performed By: #### P SATOTAL #### [address] Ferritin [Mass/volume] in Se rum or PlasmaOrdered By: Boris Zayas on 07-19-2023 Ferritin [Mass/Vol] 24.1 ng/mL 23.9-336.2 [facility] Globulin Calc (S) [Mass/Vol] Ordered By: Boris Zayas on 07-19-2023 Globulin (S) [Mass/Vol] 2.1 g/dL [facility] Glucose [Mass/volume] in Ser um or PlasmaOrdered By: Boris Zayas on 07-19-2023 Glucose [Mass/Vol] 102 mg/dL 70-[address] [facility] Comment on above: ADA recommended refe rence rangeRandom Glucose Reference Range is dependent on time and content of last meal. Glucose of more than 200 mg/dL in a nonstressed, ambulatory subject supports the diagnosis of Diabetes Mellitus. Hematocrit Auto (Bld) [Volum e fraction]Ordered By: Boris Zayas on 07-19-2023 Hematocrit (Bld) [Volume fraction] 50.5 % 38.8-50.0 [facility] Hemoglobin [Mass/volume] in BloodOrdered By: Boris Zayas on 07-19-2023 Hemoglobin (Bld) [Mass/Vol] 17.4 g/dL 13.0-17.0 [facility] Iron [Mass/volume] in Serum or PlasmaOrdered By: Boris Zayas on 07-19-2023 Iron [Mass/Vol] 140 ug/dL 50-212 [facility] Iron and TIBC Profileon 06-29 % Iron Saturation 40.9 % Normal 20-50 [facility] Comment on above: Order Comment: Reaso n for Exam Prediabetes Reason for Exam Microcytic anemia Reason for Exam Prediabetes;Essential (primary) hypertension Performed By: #### P SATOTAL #### [facility] [address] Iron [Mass/Vol] 140 ug/dL Normal 50-212 [facility] Comment on above: Order Comment: Reaso n for Exam Prediabetes Reason for Exam Microcytic anemia Reason for Exam Prediabetes;Essential (primary) hypertension Performed By: #### P SATOTAL #### [facility] [address] [place] [address] [facility] Total Iron Binding Capacity 342 ug/dL Normal 255-450 [facility] Comment on above: Order Comment: Reaso n for Exam Prediabetes Reason for Exam Microcytic anemia Reason for Exam Prediabetes;Essential (primary) hypertension Performed By: #### P SATOTAL #### [facility] [address] [place] [address] [place] Transferrin [Mass/Vol] 244 mg/dL Normal 203-362 [facility] Comment on above: Order Comment: Reaso n for Exam Prediabetes Reason for Exam Microcytic anemia Reason for Exam Prediabetes;Essential (primary) hypertension Performed By: #### P SATOTAL #### [facility] [address] [place] [address] [place] Iron binding capacity [Mass/ volume] in Serum or PlasmaOrdered By: Boris Zayas on 07-19-2023 Iron binding capacity [Mass/Vol] 342 ug/dL 255-450 [facility] Iron saturation [Mass Fracti on] in Serum or PlasmaOrdered By: Boris Zayas on 07-19-2023 Iron saturation [Mass fraction] 40.9 % 20-50 [facility] LDL Cholesterol Measuredon 0 07-19-2023 LDL Cholesterol Measured 58 mg/dL Normal 0-100 [facility] Comment on above: Order Comment: Name Collection Type:: Clean-Voided Midstream Result Comment: LDL ATP III CLASSIFICATION LDL less than 100 mg/dL Optimal LDL 100-129 mg/dL Near or above optimal LDL 130-159 mg/dL Borderline high LDL 160-189 mg/dL High LDL greater than 189 mg/dL Very high PERFORMED BY: [place] [address] PATHOLOGIST NEGATIVE ASSEMBLER LAURYN LAGOS M.D. Performed By: #### A ARVIND, CUU #### [address] Leukocytes [#/volume] correc emperatriz for nucleated erythrocytes in Blood by Automated counOrdered By: Boris Zayas on 07-19-2023 WBC corrected for nucl RBC Auto (Bld) [#/Vol] 7.5 10*3/uL 4.1-10.5 [facility] Lipid Panelon 07-19-2023 Cholesterol [Mass/Vol] 109 mg/dL Low 140-200 [facility] Comment on above: Order Comment: Name Collection Type:: Clean-Voided Midstream Result Comment: Chol less than 200 mg/dl low risk Chol 201-239 mg/dl borderline risk Chol 240 mg/dl and greater high risk Performed By: #### A RISHIUAPLUS, CUU #### [facility] [address] [place] [id number] [place] Cholesterol in HDL [Mass/Vol] 45 mg/dL Normal 23-92 [facility] Comment on above: Order Comment: Name Collection Type:: Clean-Voided Midstream Result Comment: HDL CHOL ATP-III CLASSIFICATION Cardiovascular Risk HDL > or equal to 60 mg/dL LOW HDL < 40 mg/dL HIGH Performed By: #### A DDONUAPLUS, CUU #### [place] [address] [place] Cholesterol.total/Choles terol in HDL [Mass ratio] 2.4 {ratio} Normal <5.0 [facility] Comment on above: Order Comment: Name Collection Type:: Clean-Voided Midstream Performed By: #### A ARVIND, CUU #### [facility] [address] [place] [address] LDL Cholesterol,Calculated 46 mg/dL Normal 0-100 [facility] Comment on above: Order Comment: Name Collection Type:: Clean-Voided Midstream Result Comment: LDL ATP III CLASSIFICATION LDL less than 100 mg/dL Optimal LDL 100-129 mg/dL Near or above optimal LDL 130-159 mg/dL Borderline high LDL 160-189 mg/dL High LDL greater than 189 mg/dL Very high Performed By: #### A ARVIND, CUU #### [address] Triglyceride w/Reflex 92 mg/dL Normal 0-149 [facility] Comment on above: Order Comment: Name Collection Type:: Clean-Voided Midstream Result Comment: TRIG ATP III CLASSIFICATION TRIG less than 150 mg/dL Normal TRIG 150-199 mg/dL Borderline high TRIG 200-500 mg/dL High TRIG greater than 500 mg/dL Very high Standard traceable to the Center for Disease Conrtrol and Prevention (CDC) test method. Performed By: #### A ARVIND, CUU #### [address] VLDL CHOLESTEROL 18 mg/dL Normal [facility] Comment on above: Order Comment: Name Collection Type:: Clean-Voided Midstream Performed By: #### A ARVIND, CUU #### [place] [address] [place] Lymphocytes Auto (Bld) [#/Vo l]Ordered By: Boris Zayas on 07-19-2023 Lymphocytes (Bld) [#/Vol] 1.3 10*3/uL 1.00-4.8 [facility] Lymphocytes/100 WBC Auto (Bl d)Ordered By: Boris Zayas on 07-19-2023 Lymphocytes/100 WBC (Bld) 17.5 % . [facility] MCH Auto (RBC) [Entitic mass ]Ordered By: Boris Zayas on 07-19-2023 MCH (RBC) [Entitic mass] 31.7 pg 27.5-35.2 [facility] MCHC Auto (RBC) [Mass/Vol]Or dered By: Boris Zayas on 07-19-2023 MCHC (RBC) [Mass/Vol] 34.4 g/dL 32.5-35.6 [facility] MCV Auto (RBC) [Entitic vol] Ordered By: Boris Zayas on 07-19-2023 MCV (RBC) [Entitic vol] 92.2 fL 83.5-[address] [facility] Microcytes LM Ql (Bld)Ordere d By: Boris Zayas on 07-19-2023 Microcytes Ql (Bld) Slight [facility] Monocytes Auto (Bld) [#/Vol] Ordered By: Boris Zayas on 07-19-2023 Monocytes (Bld) [#/Vol] 0.5 10*3/uL 0.0-0.8 [facility] Monocytes/100 WBC Auto (Bld) Ordered By: Boris Zayas on 07-19-2023 Monocytes/100 WBC (Bld) 6.9 % . [facility] Neutrophils Auto (Bld) [#/Vo l]Ordered By: Boris Zayas on 07-19-2023 Neutrophils (Bld) [#/Vol] 5.3 10*3/uL 1.8-7.7 [facility] Neutrophils/100 WBC Auto (Bl d)Ordered By: Boris Zayas on 07-19-2023 Neutrophils/100 WBC (Bld) 70.9 % . [facility] No Panel InformationOrdered By: Boris Zayas on 07-19-2023 Estimated GFR (CKD-EPI) > 60.0 mL/Min [facility] [facility] Creatinine Clearance (Chem N/A [facility] Nucleated erythrocytes [Pres ence] in Blood by Automated countOrdered By: Boris Zayas on 07-19-2023 Nucleated RBC Auto Ql (Bld) 0.2 /100{WBC} 0-0.5 [facility] Platelet adequacy [Presence] in Blood by Light microscopyOrdered By: Boris Zayas on 07-19-2023 Platelets LM Ql (Bld) Normal Normal [facility] Platelet mean volume Auto (B ld) [Entitic vol]Ordered By: Boris Zayas on 07-19-2023 Platelet mean volume (Bld) [Entitic vol] 9.5 fL 6.6-10.1 [facility] Platelet morphology finding [Identifier] in BloodOrdered By: Boris Zayas on 07-19-2023 Platelet morphology finding Nom (Bld) N/A [facility] Platelets Auto (Bld) [#/Vol] Ordered By: Boris Zayas on 07-19-2023 Platelets (Bld) [#/Vol] 179 10*3/uL 150-450 [facility] Potassium [Moles/volume] in Serum or PlasmaOrdered By: Boris Zayas on 07-19-2023 Potassium [Moles/Vol] 4.1 mmol/L 3.5-5.1 [facility] Protein [Mass/volume] in Ser um or PlasmaOrdered By: Boris Zayas on 07-19-2023 Protein [Mass/Vol] 6.3 g/dL 6.4-8.[address] [facility] RBC Auto (Bld) [#/Vol]Ordere d By: Boris Zayas on 07-19-2023 RBC (Bld) [#/Vol] 5.48 10*6/uL 3.90-5.60 [facility] RBC morphologyOrdered By: Issac Zayas on 07-19-2023 RBC morphology finding Nom (Bld) N/A [facility] Scan and CBCon 07-19-2023 Anisocytosis Ql (Bld) Slight Normal [facility] Comment on above: Order Comment: Reaso n for Exam Microcytic anemia Performed By: #### P SATOTAL #### [facility] [address] Basophils (Bld) [#/Vol] 0.1 10*3/uL Normal 0.0-0.2 [facility] Comment on above: Order Comment: Reaso n for Exam Microcytic anemia Performed By: #### P SATOTAL #### [address] Basophils/100 WBC (Bld) 1.2 % Normal . [facility] Comment on above: Order Comment: Reaso n for Exam Microcytic anemia Performed By: #### P SATOTAL #### [address] Eosinophils (Bld) [#/Vol] 0.3 10*3/uL Normal 0.0-0.45 [facility] Comment on above: Order Comment: Reaso n for Exam Microcytic anemia Performed By: #### P SATOTAL #### [address] Eosinophils/100 WBC (Bld) 3.5 % Normal . [facility] Comment on above: Order Comment: Reaso n for Exam Microcytic anemia Performed By: #### P SATOTAL #### [address] Erythrocyte distribution width (RBC) [Ratio] 13.5 % Normal 12.0-14.8 [facility] Comment on above: Order Comment: Reaso n for Exam Microcytic anemia Performed By: #### P SATOTAL #### [address] Hematocrit (Bld) [Volume fraction] 50.5 % High 38.8-50.0 [facility] Comment on above: Order Comment: Reaso n for Exam Microcytic anemia Performed By: #### P SATOTAL #### [address] Hemoglobin (Bld) [Mass/Vol] 17.4 g/dL High 13.0-17.0 [facility] Comment on above: Order Comment: Reaso n for Exam Microcytic anemia Performed By: #### P SATOTAL #### [address] Lymphocytes (Bld) [#/Vol] 1.3 10*3/uL Normal 1.00-4.8 [facility] Comment on above: Order Comment: Reaso n for Exam Microcytic anemia Performed By: #### P SATOTAL #### [address] Lymphocytes/100 WBC (Bld) 17.5 % Normal . [facility] Comment on above: Order Comment: Reaso n for Exam Microcytic anemia Performed By: #### P SATOTAL #### [address] MCH (RBC) [Entitic mass] 31.7 pg Normal 27.5-35.2 [facility] Comment on above: Order Comment: Reaso n for Exam Microcytic anemia Performed By: #### P SATOTAL #### [address] MCV (RBC) [Entitic vol] 92.2 fL Normal 83.5-[address] [facility] Comment on above: Order Comment: Reaso n for Exam Microcytic anemia Performed By: #### P SATOTAL #### [address] Mean Corpuscular HGB Conc 34.4 g/dL Normal 32.5-35.6 [facility] Comment on above: Order Comment: Reaso n for Exam Microcytic anemia Performed By: #### P SATOTAL #### [address] Microcytosis Slight Normal [facility] Comment on above: Order Comment: Reaso n for Exam Microcytic anemia Performed By: #### P SATOTAL #### [place] [address] [place] Monocytes (Bld) [#/Vol] 0.5 10*3/uL Normal 0.0-0.8 [facility] Comment on above: Order Comment: Reaso n for Exam Microcytic anemia Performed By: #### P SATOTAL #### [address] Monocytes/100 WBC (Bld) 6.9 % Normal . [facility] Comment on above: Order Comment: Reaso n for Exam Microcytic anemia Performed By: #### P SATOTAL #### [address] [address] [place] Neutrophils (Bld) [#/Vol] 5.3 10*3/uL Normal 1.8-7.7 [facility] Comment on above: Order Comment: Reaso n for Exam Microcytic anemia Performed By: #### P SATOTAL #### [facility] [address] [place] [address] [place] Neutrophils/100 WBC (Bld) 70.9 % Normal . [facility] Comment on above: Order Comment: Reaso n for Exam Microcytic anemia Performed By: #### P SATOTAL #### [facility] [address] NRBC% 0.2 /100{WBC} Normal 0-0.5 [facility] Comment on above: Order Comment: Reaso n for Exam Microcytic anemia Performed By: #### P SATOTAL #### [facility] [address] [place] [address] Platelet Estimate Normal Normal Normal [facility] Comment on above: Order Comment: Reaso n for Exam Microcytic anemia Result Comment: PERF ORMED BY: [place] [address] PATHOLOGIST [employer]GATIVE [employer]SEM[employer]ER LAURYN LAGOS M.D. Performed By: #### P SATOTAL #### [facility] [address] [place] [address] Platelet mean volume (Bld) [Entitic vol] 9.5 fL Normal 6.6-10.1 [facility] Comment on above: Order Comment: Reaso n for Exam Microcytic anemia Performed By: #### P SATOTAL #### [facility] [address] [place] [address] [place] Platelets (Bld) [#/Vol] 179 10*3/uL Normal 150-450 [facility] Comment on above: Order Comment: Reaso n for Exam Microcytic anemia Performed By: #### P SATOTAL #### [place] [address] [place] RBC (Bld) [#/Vol] 5.48 10*6/uL Normal 3.90-5.60 [facility] Comment on above: Order Comment: Reaso n for Exam Microcytic anemia Performed By: #### P SATOTAL #### [facility] [address] WBC (Bld) [#/Vol] 7.5 10*3/uL Normal 4.1-10.[address] [facility] Comment on above: Order Comment: Reaso n for Exam Microcytic anemia Performed By: #### P SATOTAL #### [facility] [address] Serum or plasma albumin/glob ulin mass ratioOrdered By: Boris Zayas on 07-19-2023 Albumin/Globulin [Mass ratio] 2.0 {ratio} [facility] Serum or plasma anion gap de terminationOrdered By: Boris Zayas on 07-19-2023 Anion gap [Moles/Vol] 11.7 mmol/L 6.0-15.0 [facility] Serum or plasma high density lipoprotein (HDL) cholesterol measurementOrdered By: Boris Zayas on 07-19-2023 Cholesterol in HDL [Mass/Vol] 45 mg/dL 23-92 [facility] Comment on above: HDL CHOL ATP-III CLA SSIFICATION Cardiovascular RiskHDL > or equal to 60 mg/dL LOWHDL < 40 mg/dL HIGH Serum or plasma total choles terol/high density lipoprotein (HDL) cholesterol mass ratOrdered By: Boris Zayas on 07-19-2023 Cholesterol.total/Choles terol in HDL [Mass ratio] 2.4 {ratio} <5.0 [facility] Sodium [Moles/volume] in Ser um or PlasmaOrdered By: Boris Zayas on 07-19-2023 Sodium [Moles/Vol] 142 mmol/L 136-[address] [facility] Transferrin [Mass/volume] in Serum or PlasmaOrdered By: Boris Zayas on 07-19-2023 Transferrin [Mass/Vol] 244 mg/dL 203-362 [facility] Triglyceride [Mass/volume] i n Serum or PlasmaOrdered By: Boris Zayas on 07-19-2023 Triglyceride [Mass/Vol] 92 mg/dL 0-[address] [facility] Comment on above: TRIG ATP III CLASSIF ICATIONTRIG less than 150 mg/dL NormalTRIG 150-199 mg/dL Borderline highTRIG 200-500 mg/dL High TRIG greater than 500 mg/dL Very highStandard traceable to the Center for Disease Conrtrol and Prevention (CDC) test method. Urea nitrogen [Mass/volume] in Serum or PlasmaOrdered By: Boris Zayas on 07-19-2023 Urea nitrogen [Mass/Vol] 11 mg/dL 11-21 [facility] WBC Auto (Bld) [#/Vol]Ordere d By: Boris Zayas on 07-19-2023 WBC (Bld) [#/Vol] 7.5 10*3/uL 4.1-10.[address] [facility] ECG 12-Leadon 07-13-2023 ECG 12-Lead [id number]#1.00TIFF Normal [facility] Reportson 07-13-2023 Lab Reports [id number]#1.00TIFF Normal [facility] Lab Reports [id number]#1.00TIFF Normal [facility] Insurance Correspondenceon 0 07-11-2023 Insurance Correspondence [id number]#1.00TIFF Normal [facility] Consent for Procedure/Surger yon 06-29-2023 Consent for Procedure/Surgery [id number]#1.00TIFF Normal [facility] RAD - MISCon 06-28-2023 RAD - MISC [id number]#1.00TIFF Normal [facility] Screenson 06-28-2023 Screens [id number]#1.00TIFF Normal [facility] Ambulatory Visit Summaryon 0 06-27-2023 Ambulatory Visit Summary NATHAN MARTIN :1955 Visit Date:06/27/2023 Ambulatory Visit Instructions Your Diagnosis BPH with obstruction/lower urinary tract symptoms Kidney stones Your Care Team Attending Physician - Edward CALLOWAY MD Primary Care Physician - [facility], . This Is Your Medications List tamsulosin (tamsulosin 0.4 mg Cap) Contact prescribing physician if questions or concerns aspirin atorvastatin (atorvastatin 40 mg Tab) lisinopril (lisinopril 40 mg Tab) metformin (metformin 500 mg Tab) naproxen (naproxen 500 mg Tab) omeprazole (omeprazole 40 mg Cap-DR) Procedures Performed Cystoscopic removal of ureteric stent (08/23/2021), Cystoscopic insertion of ureteric stent (08/02/2021), TURP - Transurethral resection of prostate (02/17/2021), Cystoscope (01/11/2021), Cystoscopy (08/12/2019), CE - Cataract extraction, Cholecystectomy, Colonoscopy, Cystoscopy, Cystoscopy, Hemorrhoidectomy, Open repair of inguinal hernia. Discharge Vitals Heart Rate (Peripheral) 64 Blood Pressure 114/70 Height 174 cm Height 69 in Weight 85.7 kg Weight 188.54 lb BMI 28.31 What to do next You Need to Schedule the Following Appointments Follow Up with VERNA LA, Edward Worrell, BALJIT When: Where: [facility] [address] , [place] [address]- Medications What How Much When Instructions Unchanged tamsulosin (tamsulosin 0.4 mg Cap) 1 Capsules By Mouth 2 times a day Duration: 90 Days Unchanged aspirin Contact prescribing physician if questions or concerns Unchanged atorvastatin (atorvastatin 40 mg Tab) By Mouth Every day Contact prescribing physician if questions or concerns Unchanged lisinopril (lisinopril 40 mg Tab) 1 Tablets By Mouth Every day Contact prescribing physician if questions or concerns Unchanged metformin (metformin 500 mg Tab) 1 Tablets By Mouth Every day Contact prescribing physician if questions or concerns Unchanged naproxen (naproxen 500 mg Tab) By Mouth 2 times a day Contact prescribing physician if questions or concerns Unchanged omeprazole (omeprazole 40 mg Cap-DR) 1 Capsules By Mouth Every day Contact prescribing physician if questions or concerns Allergies Bee Stings (Swelling) Grapefruit (Swelling) Problems Ongoing - Any problem that you are currently receiving treatment for. Abdominal pain Arthritis Asymptomatic microscopic hematuria BMI 29.0-29.9,adult BPH with obstruction/lower urinary tract symptoms Depression Dysuria Epilepsy Gross hematuria H/O psychiatric care Head injury Headaches due to old head trauma History of kidney stones Hypertension Kidney stones Nocturia Post-void dribbling Prostatitis Smoker Stroke Type 2 diabetes mellitus UTI (urinary tract infection) Historical - Any problem that you are no longer receiving treatment for. Diabetes Left flank pain Left renal stone LLQ pain Patient Survey You may receive a survey via text or e-mail asking about your office visit. Please share your experience with us by completing your survey. We appreciate your feedback and thank you for choosing us for your care. Education Materials Lithotripsy, Care After This sheet gives you information about how to care for yourself after your procedure. Your health care provider may also give you more specific instructions. If you have problems or questions, contact your health care provider. What can I expect after the procedure? After the procedure, it is common to have: ? Some blood in your urine. This should only last for a few days. ? Soreness in your back, sides, or upper abdomen for a few days. ? Blotches or bruises on the area where the shock wave entered the skin. ? Pain, discomfort, or nausea when pieces (fragments) of the kidney stone move through the tube that carries urine from the kidney to the bladder (ureter). Stone fragments may pass soon after the procedure, but they may continue to pass for up to 4?8 weeks. ? If you have severe pain or nausea, contact your health care provider. This may be caused by a large stone that was not broken up, and this may mean that you need more treatment. ? Some pain or discomfort during urination. ? Some pain or discomfort in the lower abdomen or (in men) at the base of the penis. Follow these instructions at home: Medicines ? Take fmne-[id number] and prescription medicines only as told by your health care provider. ? If you were prescribed an antibiotic medicine, take it as told by your health care provider. Do not stop taking the antibiotic even if you start to feel better. ? Ask your health care provider if the medicine prescribed to you requires you to avoid driving or using machinery. Eating and drinking ? Drink enough fluid to keep your urine pale yellow. This helps any remaining pieces of the stone to pass. It can also help prevent new stones from forming. (more content not included)... Normal [facility] Patient Educationon 06-27-19 Patient Education Nephrology Lithotripsy, Care After This sheet gives you information about how to care for yourself after your procedure. Your health care provider may also give you more specific instructions. If you have problems or questions, contact your health care provider. What can I expect after the procedure? After the procedure, it is common to have: ? Some blood in your urine. This should only last for a few days. ? Soreness in your back, sides, or upper abdomen for a few days. ? Blotches or bruises on the area where the shock wave entered the skin. ? Pain, discomfort, or nausea when pieces (fragments) of the kidney stone move through the tube that carries urine from the kidney to the bladder (ureter). Stone fragments may pass soon after the procedure, but they may continue to pass for up to 4?8 weeks. ? If you have severe pain or nausea, contact your health care provider. This may be caused by a large stone that was not broken up, and this may mean that you need more treatment. ? Some pain or discomfort during urination. ? Some pain or discomfort in the lower abdomen or (in men) at the base of the penis. Follow these instructions at home: Medicines ? Take chbb-nxr-ovrtplg and prescription medicines only as told by your health care provider. ? If you were prescribed an antibiotic medicine, take it as told by your health care provider. Do not stop taking the antibiotic even if you start to feel better. ? Ask your health care provider if the medicine prescribed to you requires you to avoid driving or using machinery. Eating and drinking ? Drink enough fluid to keep your urine pale yellow. This helps any remaining pieces of the stone to pass. It can also help prevent new stones from forming. ? Eat plenty of fresh fruits and vegetables. ? Follow instructions from your health care provider about eating or drinking restrictions. You may be instructed to: ? Reduce how much salt (sodium) you eat or drink. Check ingredients and nutrition facts on packaged foods and beverages to see how much sodium they contain. ? Reduce how much meat you eat. ? Eat the recommended amount of calcium for your age and gender. Ask your health care provider how much calcium you should have. General instructions ? Get plenty of rest. ? Return to your normal activities as told by your health care provider. Ask your health care provider what activities are safe for you. Most people can resume normal activities 1?2 days after the procedure. ? If you were given a sedative during the procedure, it can affect you for several hours. Do not drive or operate machinery until your health care provider says that it is safe. ? Your health care provider may direct you to lie in a certain position (postural drainage) and tap firmly (percuss) over your kidney area to help stone fragments pass. Follow instructions as told by your health care provider. ? If directed, strain all urine through the strainer that was provided by your health care provider. ? Keep all fragments for your health care provider to see. Any stones that are found may be sent to a medical lab for examination. The stone may be as small as a grain of salt. ? Keep all follow-up visits as told by your health care provider. This is important. Contact a health care provider if: ? You have a fever or chills. ? You have nausea that is severe or does not go away. ? You have any of these urinary symptoms: ? Blood in your urine for longer than your health care provider told you to expect. ? Urine that smells bad or unusual. ? Feeling a strong urge to urinate after emptying your bladder. ? Pain or burning with urination that does not go away. ? Urinating more often than usual and this does not go away. ? You have a stent and it comes out. Get help right away if: ? You have severe pain in your back, sides, or upper abdomen. ? You have any of these urinary symptoms: ? Severe pain while urinating. ? More blood in your urine or having blood in your urine when you did not before. ? Passing blood clots in your urine. ? Passing only a small amount of urine or being unable to pass any urine at all. ? You have severe nausea that leads to persistent vomiting. ? You faint. Summary ? After this procedure, it is common to have some pain, discomfort, or nausea when pieces (fragments) of the kidney stone move through the tube that carries urine from the kidney to the bladder (ureter). If this pain or nausea is severe, however, you should contact your health care provider. ? Return to your normal activities as told by your health care provider. Ask your health care provider what activities are safe for you. ? Drink enough fluid to keep your urine pale yellow. This helps any remaining pieces of the stone to pass, and it can help prevent new stones from forming. ? If directed, strain your urine and keep all fragments for your health care p (more content not included)... Normal [place] [facility] Urology Office/Clinic Noteon 06-27-2023 Urology Office/Clinic Note Chief Complaint 6 month follow up HPI Staff 6 month follow up w/KUB. Pt was seen at [facility] on 06/13/23 due to dysuria, difficulty urinating. CT SCAN 06/13/23. BUN 13, Creatinine 0.84 06/13/23 CT SCAN 05/08/23-[facility]. Last PSA 3.040 done 11/21/22 Previous DX: BPH w/ obstruction/LUTS, kidney stones, UTI. S/p TURP 02/17/21. KUB @ [facility] 06/22/23. IPSS 4. *Tamsulosin 0.4mg BID Dysuria: denies pain or burning Incomplete bladder emptying: denies Hematuria: denies visible blood Frequency: 4x a day Urgency: denies Nocturia: 1x a night Stream: denies hesitancy, denies weak stream Leaking: denies Post void dripping: denies Wearing pads/ Depends: denies Urge incontinence: denies Stress incontinence: denies Incontinence without Sensory Awareness: denies Abdominal pain: denies Flank pain: denies Sexual complaints: denies History of Present Illness Tests reviewed: reviewed UA, KUB I have reviewed the previous health record information and history for this patient from Dr. Calloway. I have reviewed and verified the staff HPI to be accurate for this encounter. There have been no associated fever, chills, flank pain, or blood in the urine. Denies any urinary infections since last encounter. Review of Systems PHQ Score Initial Depression Screen Score: 2 SCORE ROS - Provider Constitutional: denies weight loss, denies hot flashes. Eyes: denies eye problems. Gastrointestinal: denies nausea, denies vomiting. Cardiovascular: denies chest pain or angina. Integumentary: no dryness Musculoskeletal: denies musculoskeletal symptoms. ENMT: denies otolaryngeal symptoms. Respiratory: no shortness of breath. Heme/Lymph: denies easy bleeding tendency, denies easy bruising tendency. Psychiatric: no confusion, no anxiety. Genitourinary: See HPI. Physical Exam Vitals & Measurements HR: 64(Peripheral) BP: 114/70 HT: 69 in HT: 174 cm WT: 85.7 kg WT: 188.54 lb BMI: 28.31 General Appearance: alert, no distress, well nourished, well developed male. Genitourinary: normal scrotum, normal testes, normal urethra, normal epididymis, normal vas deferens/spermatic cord. Flank Pain: none. Bladder: nonpalpable. Assessment/Plan 1. BPH with obstruction/lower urinary tract symptoms (N40.1: Benign prostatic hyperplasia with lower urinary tract symptoms) PSA 03/06/22 - 3.440 11/21/22 - 3.04 S/p TURP 02/17/21. UA today negative for blood and infection. Taking Tamsulosin 0.4 mg BID. Feels he empties completely. IPSS 4. 2. Kidney stones (N20.0: Calculus of kidney) KUB 06/22/23 FR - [employer] 6-7 mm. No definite R or ureteral stones. There are low calcifications w/in the pelvis may correlate w/prostate calcifications on CT. Reviewed imaging with pt. Discussed surgical intervention options including ESWL if visible on x-ray (less invasive, lower stone free rate) and ureteroscopy/laser litho with possible stent placement (more invasive, higher stone free rate). Risks and benefits of each discussed. Will schedule L ESWL. The procedure risks, benefits, details and treatment alternatives have been discussed with the patient. These include blood in the urine, infection, bleeding around the kidney, kidney bruising, inability to break up the stone, need for blood transfusion, blockage from stone fragments, and need for additional procedures, among others. Full informed consent has been obtained. Will order General anesthesia. Follow-up With When Contact Information VERNA LA, Edward Worrell, URL [facility] [address], [place] [address]- Additional Instructions: schedule L ESWL Patient Education Lithotripsy, Care After Lithotripsy IChrissie, personally scribed for Dr. Calloway on 06/27/2023 12:02:03. Documentation recorded by the scribe, Chrissie Rollins, accurately reflects the services(s) I performed and decisions made by me. Authenticated by Dr. Calloway on 06/27/2023 12:03:44.. Problem List/Past Medical History Ongoing Abdominal pain Arthritis Asymptomatic microscopic hematuria BMI 29.0-29.9,adult BPH with obstruction/lower urinary tract symptoms Depression Dysuria Epilepsy Gross hematuria H/O psychiatric care Head injury Headaches due to old head trauma History of kidney stones Hypertension Kidney stones Nocturia Post-void dribbling Prostatitis Smoker Stroke Type 2 diabetes mellitus UTI (urinary tract infection) Historical Diabetes Left flank pain Left renal stone LLQ pain Procedure/Surgical History Cystoscopic removal of ureteric stent (08/23/2021), Cystoscopic insertion of ureteric stent (08/02/2021), TURP - Transurethral resection of prostate (02/17/2021), Cystoscope (01/11/2021), Cystoscopy (08/12/2019), CE - Cataract extraction, Cholecystectomy, Colonoscopy, Cystoscopy, Cystoscopy, Hemorrhoidectomy, Open repair of inguinal hernia. Medications aspirin atorvastatin 40 mg Tab, Oral, Jolie (more content not included)... Normal [facility] Comment on above: Result Comment: Elec tronically Signed By: Edward CALLOWAY MD\.br\Date and Time Signed: 06/27/23 12:03 EST\.br\Electronically Co-Signed By: Chrissie Rollins\.br\Date and Time Co-Signed: 06/27/23 12:02 EST RAD - MISCon 06-25-2023 RAD - MISC [id number] [facility] XR abdomen 1Von 06-22-2023 XR abdomen 1V [facility] [address] XRay Report Signed Patient: Nathan Martin MR#: [id number] : 1955 Acct:[id number] Age/Sex: 67 / M ADM Date: 06/22/23 Loc: XD [facility]: [facility]: Edward Calloway MD Copies to: Edward Calloway MD Ordering Provider: Edward Calloway MD Date of Service: 06/22/23 XR/XR abdomen 1V: N20.0 SINGLE VIEW ABDOMEN COMPARISON: 11/03/[address] 06/13/2023 CLINICAL DATA: Follow-up kidney stones. Supine view of the abdomen and pelvis was obtained. A calcified stone is again seen at the lower pole of the left kidney measuring 6 - 7 mm. No definite stones are seen on the right or along the course of the ureters. There is mild air and stool within the colon. No dilated small bowel loops are present. There are no soft tissue masses. There are low calcifications within the pelvis may correlate with the prostate calcifications on CT . Degenerative changes are present at the spine. There is prior cholecystectomy. XR/XR abdomen 1V IMPRESSION: LEFT NEPHROLITHIASIS. Impression dictated by: Krissy Iyer M.D.06/22/2023 4:32 PM Dictation Location: [place] [address] Transcribed By: [facility] 06/22/23 1632 Dictated By: Krissy Iyer MD 06/22/23 1629 Signed By: 06/22/23 1632 Normal [facility] ED Note-Physicianon 06-15-19 ED Note-Physician [id number] Normal [facility] Alanine aminotransferase [En zymatic activity/volume] in Serum or PlasmaOrdered By: Kylie Bullimore on 06-13-2023 ALT [Catalytic activity/Vol] 24 U/L 7-52 [facility] Albumin [Mass/volume] in Ser um or Plasma by Bromocresol green (BCG) dye binding methoOrdered By: Kylie Bullimore on 06-13-2023 Albumin BCG dye [Mass/Vol] 4.1 g/dL 3.5-5.7 [facility] Alkaline phosphatase [Enzyma tic activity/volume] in Serum or PlasmaOrdered By: Kylie Bullimore on 06-13-2023 ALP [Catalytic activity/Vol] 41 U/L 34-104 [facility] Aspartate aminotransferase [ Enzymatic activity/volume] in Serum or PlasmaOrdered By: Kylie Bullimore on 06-13-2023 AST [Catalytic activity/Vol] 22 U/L 13-39 [facility] Automated erythrocytes count in urine sediment (number/area)Ordered By: PROVIDER TEMP on 06-13-2023 RBC Auto (Urine sed) [#/Area] 0-1 [HPF] 0-4 [facility] Automated leukocytes count i n urine sediment (number/area)Ordered By: PROVIDER TEMP on 06-13-2023 WBC Auto (Urine sed) [#/Area] 3-4 [HPF] 0-4 [facility] Automated urine sediment rhiannon cium oxalate crystal count by microscopy (number/high powOrdered By: PROVIDER TEMP on 06-13-2023 Calcium oxalate crystals LM.HPF (Urine sed) [#/Area] 1+ [HPF] [facility] Basophils Auto (Bld) [#/Vol] Ordered By: Kylie Box on 06-13-2023 Basophils (Bld) [#/Vol] 0.1 10*3/uL 0.0-0.2 [facility] Basophils/100 WBC Auto (Bld) Ordered By: Kylie Box on 06-13-2023 Basophils/100 WBC (Bld) 0.6 % . [facility] Bilirubin Test strip Ql (U)O rdered By: PROVIDER TEMP on 06-13-2023 Bilirubin Ql (U) Negative Negative [facility] Bilirubin.total [Mass/volume ] in Serum or PlasmaOrdered By: Kylie Box on 06-13-2023 Bilirubin [Mass/Vol] 0.6 mg/dL 0.3-1.[address] [facility] [address] abdomen pelvis wo conon 0 06-13-2023 CT abdomen pelvis wo con [facility] [place] [address] CT Scan Report Signed Patient: Nathan Martin MR#: [id number] : 1955 Acct:[id number] Age/Sex: 67 / M ADM Date: 06/13/23 Loc: ER Room: Type: [facility] ER Attending Dr: Copies to: ADOLFO Sloan Ordering Provider: ADOLFO Sloan Date of Service: 06/13/23 CT/CT abdomen pelvis wo con: r/o kidney stone CT ABDOMEN AND PELVIS WITHOUT CONTRAST COMPARISON: 05/09/2023 CLINICAL DATA: Intermittent dysuria for the past month. History of kidney stones. Spiral images were obtained through the abdomen and pelvis without contrast. This CT exam was performed using one or more following dose reduction techniques: Automated exposure control, adjustment of the mA and/or kV according to patient size, or use of iterative reconstruction technique. Limited cuts through the lung bases show subpleural blebs adjacent to the right hemidiaphragm. Left basilar nodular densities are again seen. Assessment of the intra-abdominal organs is slightly limited by the absence of contrast. The gallbladder is surgically absent. No biliary dilatation or common duct stones are noted. No intrahepatic masses are seen. The spleen, pancreas and adrenal glands show no acute findings. There is mild bilateral perinephric fibrofatty stranding. A couple of tiny stones are present at the lower kidney on the right. There are slightly larger stones on the left measuring up to 6 mm in size. No hydronephrosis is noted. No ureteral dilatation or stones are seen. There is mild atherosclerotic plaque at the aorta and iliac arteries. There are tiny lymph nodes. No ascites is present. The small bowel loops are not significantly distended. Stool is visualized throughout the colon. A few colonic diverticula are seen. There are multilevel degenerative changes at the spine with associated stenosis. Images through the pelvis show no appendiceal inflammation. There is no dilated small bowel. There is mild distal colonic stool. There are some additional colonic diverticula, without associated active inflammation. The prostate is enlarged and contains calcification. There is slight mass effect at the bladder trigone. There is redemonstration of a potential tiny stone dependent at the posterior inferior bladder centrally. This was seen on the comparisons. The urinary bladder is not fully distended though no other obvious abnormalities are identified. No ascites is seen. There is mild degenerative change at the hips and SI joints. CT/CT abdomen pelvis wo con IMPRESSION: BILATERAL NEPHROLITHIASIS, WITHOUT OBSTRUCTION. CONTINUED POSSIBLE BLADDER STONE. PROSTATE HYPERTROPHY. DIVERTICULOSIS. NO ACUTE FINDINGS. Impression dictated by: Krissy Iyer M.D.06/13/2023 3:19 PM Dictation Location: [place] [address] Transcribed By: DOMINICK 06/13/23 1519 Dictated By: Krissy Iyer MD 06/13/23 1505 Signed By: 06/13/23 1519 Normal [facility] Calcium [Mass/volume] in Ser um or PlasmaOrdered By: Kylie Bullimore on 06-13-2023 Calcium [Mass/Vol] 9.4 mg/dL 8.6-10.[address] [facility] Carbon dioxide, total [Moles /volume] in Serum or PlasmaOrdered By: Kylie Bullimore on 06-13-2023 CO2 [Moles/Vol] 26.0 mmol/L 21.0-31.0 [facility] Chloride [Moles/volume] in S prasanth or PlasmaOrdered By: Kylie Bullimore on 06-13-2023 Chloride [Moles/Vol] 110 mmol/L 98-107 [facility] Color Auto (U)Ordered By: [place] JOSEER TEMP on 06-13-2023 Color (U) Yellow Yellow [facility] Comprehensive Metabolic Pane bobby 06-13-2023 Albumin [Mass/Vol] 4.1 g/dL Normal 3.5-5.[address] [facility] Comment on above: Performed By: #### F ER, FE and TIBC, CBC #### [facility] [address] Albumin/Globulin [Mass ratio] 1.5 {ratio} Normal [facility] Comment on above: Performed By: #### F ER, FE and TIBC, CBC #### [facility] [address] [place] [address] [place] ALP [Catalytic activity/Vol] 41 U/L Normal 34-104 [facility] Comment on above: Performed By: #### F ER, FE and TIBC, CBC #### [facility] [address] [place] [id number] [place] ALT [Catalytic activity/Vol] 24 U/L Normal 7-52 [facility] Comment on above: Performed By: #### F ER, FE and TIBC, CBC #### [facility] [address] Anion gap [Moles/Vol] 8.4 mmol/L Normal 6.0-15.0 [facility] Comment on above: Performed By: #### F ER, FE and TIBC, CBC #### [facility] [address] AST [Catalytic activity/Vol] 22 U/L Normal 13-39 [facility] Comment on above: Performed By: #### F ER, FE and TIBC, CBC #### [facility] [address] Bilirubin [Mass/Vol] 0.6 mg/dL Normal 0.3-1.0 [facility] Comment on above: Performed By: #### F ER, FE and TIBC, CBC #### [facility] [address] Calcium [Mass/Vol] 9.4 mg/dL Normal 8.6-10.[address] [facility] Comment on above: Performed By: #### F ER, FE and TIBC, CBC #### [facility] [address] Chloride [Moles/Vol] 110 mmol/L High 98-107 [facility] Comment on above: Performed By: #### F ER, FE and TIBC, CBC #### [address] CO2 [Moles/Vol] 26.0 mmol/L Normal 21.0-31.0 [facility] Comment on above: Performed By: #### F ER, FE and TIBC, CBC #### [facility] [address] Creatinine [Mass/Vol] 0.84 mg/dL Normal 0.70-1.30 [facility] Comment on above: Performed By: #### F ER, FE and TIBC, CBC #### [address] Creatinine Clr Calc Pharmacy 89.39 Normal [facility] Comment on above: Result Comment: PERF ORMED BY: [place] [address] PATHOLOGIST NEGATIVE ASSEMBLER LAURYN LAGOS M.D. Performed By: #### F ER, FE and TIBC, CBC #### [facility] [address] GFR/1.73 sq M.predicted MDRD (S/P/Bld) [Vol rate/Area] mL/min/{1.73_m2} Normal [facility] Comment on above: Performed By: #### F ER, FE and TIBC, CBC #### [facility] [address] Globulin (S) [Mass/Vol] 2.7 g/dL Normal [facility] Comment on above: Performed By: #### F ER, FE and TIBC, CBC #### [facility] [address] Glucose [Mass/Vol] 82 mg/dL Normal 70-[address] [facility] Comment on above: Result Comment: [facility] Glucose Reference Range is dependent on time and content of last meal. Glucose of more than 200 mg/dL in a nonstressed, ambulatory subject supports the diagnosis of Diabetes Mellitus. ADA recommended reference range Performed By: #### F ER, FE and TIBC, CBC #### [facility] [address] Potassium [Moles/Vol] 4.4 mmol/L Normal 3.5-5.1 [facility] Comment on above: Performed By: #### F ER, FE and TIBC, CBC #### [facility] [address] Protein [Mass/Vol] 6.8 g/dL Normal 6.4-8.[address] [facility] Comment on above: Performed By: #### F ER, FE and TIBC, CBC #### [facility] [address] Sodium [Moles/Vol] 140 mmol/L Normal 136-[address] [facility] Comment on above: Performed By: #### F ER, FE and TIBC, CBC #### [facility] [address] Urea nitrogen [Mass/Vol] 13 mg/dL Normal 7-25 [facility] Comment on above: Performed By: #### F ER, FE and TIBC, CBC #### [facility] [address] Creatinine [Mass/volume] in Serum or PlasmaOrdered By: Kylie Box on 06-13-2023 Creatinine [Mass/Vol] 0.84 mg/dL 0.70-1.30 [facility] Dipstick and Microscopicon 0 06-13-2023 Appearance (U) Clear Normal Clear [facility] Comment on above: Order Comment: Name Collection Type:: Clean-Voided Midstream Performed By: #### F ER, FE and TIBC, CBC #### [facility] [address] Bacteria,Urine None Seen Normal None Seen [facility] Comment on above: Order Comment: Name Collection Type:: Clean-Voided Midstream Performed By: #### F ER, FE and TIBC, CBC #### [facility] [address] [place] [address] Bilirubin,Urine Negative Normal Negative [facility] Comment on above: Order Comment: Name Collection Type:: Clean-Voided Midstream Performed By: #### F ER, FE and TIBC, CBC #### [facility] [address] [place] [address] Calcium Oxalate Crystals,Urine 1+ Normal [facility] Comment on above: Order Comment: Name Collection Type:: Clean-Voided Midstream Performed By: #### F ER, FE and TIBC, CBC #### [facility] [address] [place] [address] [place] Color (U) Yellow Normal Yellow [facility] Comment on above: Order Comment: Name Collection Type:: Clean-Voided Midstream Performed By: #### F ER, FE and TIBC, CBC #### [facility] [address] [place] [address] [place] Glucose Ql (U) Normal Normal Normal [facility] Comment on above: Order Comment: Name Collection Type:: Clean-Voided Midstream Performed By: #### F ER, FE and TIBC, CBC #### [facility] [address] [place] [address] [place] Hyaline Casts,Urine None Seen Normal 0-8 [facility] Comment on above: Order Comment: Name Collection Type:: Clean-Voided Midstream Result Comment: PERF ORMED BY: [place] [address] PATHOLOGIST NEGATIVE ASSEMBLER LAURYN LAGOS M.D. Performed By: #### F ER, FE and TIBC, CBC #### [facility] [address] Ketones Ql (U) Negative Normal Negative [facility] Comment on above: Order Comment: Name Collection Type:: Clean-Voided Midstream Performed By: #### F ER, FE and TIBC, CBC #### [facility] [address] [place] [address] Leukocyte esterase Test strip Ql (U) 2+ High Negative [facility] Comment on above: Order Comment: Name Collection Type:: Clean-Voided Midstream Performed By: #### F ER, FE and TIBC, CBC #### [place] [address] [place] Nitrite,Urine Negative Normal Negative [facility] Comment on above: Order Comment: Name Collection Type:: Clean-Voided Midstream Performed By: #### F ER, FE and TIBC, CBC #### [facility] [address] [place] [address] [place] Occult Blood,Urine Trace High Negative [facility] Comment on above: Order Comment: Name Collection Type:: Clean-Voided Midstream Result Comment: PERF ORMED BY: [facility] [address] [place] [address] PATHOLOGIST NEGATIVE ASSEMBLER LAURYN LAGOS M.D. Performed By: #### F ER, FE and TIBC, CBC #### [facility] [address] [place] [address] [place] pH (U) 6.0 [pH] Normal 5.0-9.0 [facility] Comment on above: Order Comment: Name Collection Type:: Clean-Voided Midstream Performed By: #### F ER, FE and TIBC, CBC #### [facility] [address] Protein,Urine Negative Normal Negative [facility] Comment on above: Order Comment: Name Collection Type:: Clean-Voided Midstream Performed By: #### F ER, FE and TIBC, CBC #### [facility] [address] RBC LM.HPF (Urine sed) [#/Area] 0 /[HPF] Normal 0-4 [facility] Comment on above: Order Comment: Name Collection Type:: Clean-Voided Midstream Performed By: #### F ER, FE and TIBC, CBC #### [address] Specificy [place],Urine 1.019 Normal 1.00 1-1.03 0 [facility] Comment on above: Order Comment: Name Collection Type:: Clean-Voided Midstream Performed By: #### F ER, FE and TIBC, CBC #### [address] Squamous Epithelial Cell,Urine None Seen Normal 0-2 [facility] Comment on above: Order Comment: Name Collection Type:: Clean-Voided Midstream Performed By: #### F ER, FE and TIBC, CBC #### [address] Urobilinogen,Urine Normal Normal Normal [facility] Comment on above: Order Comment: Name Collection Type:: Clean-Voided Midstream Performed By: #### F ER, FE and TIBC, CBC #### [place] [address] [place] WBC,Urine 3-4 Normal 0-4 [facility] Comment on above: Order Comment: Name Collection Type:: Clean-Voided Midstream Performed By: #### F ER, FE and TIBC, CBC #### [address] Eosinophils Auto (Bld) [#/Vo l]Ordered By: Kylie Box on 06-13-2023 Eosinophils (Bld) [#/Vol] 0.2 10*3/uL 0.0-0.45 [facility] Eosinophils/100 WBC Auto (Bl d)Ordered By: Kylie Box on 06-13-2023 Eosinophils/100 WBC (Bld) 2.3 % . [facility] Erythrocyte distribution wid th Auto (RBC) [Ratio]Ordered By: Kylie Box on 06-13-2023 Erythrocyte distribution width (RBC) [Ratio] 13.8 % 12.0-14.8 [facility] Globulin Calc (S) [Mass/Vol] Ordered By: Kylie Box on 06-13-2023 Globulin (S) [Mass/Vol] 2.7 g/dL F [facility] Glucose [Mass/volume] in Ser um or PlasmaOrdered By: Kylie Box on 06-13-2023 Glucose [Mass/Vol] 82 mg/dL 70-[address] [facility] Comment on above: ADA recommended refe rence rangeRandom Glucose Reference Range is dependent on time and content of last meal. Glucose of more than 200 mg/dL in a nonstressed, ambulatory subject supports the diagnosis of Diabetes Mellitus. Hematocrit Auto (Bld) [Volum e fraction]Ordered By: Kylie Box on 06-13-2023 Hematocrit (Bld) [Volume fraction] 50.7 % 38.8-50.0 [facility] Hemoglobin [Mass/volume] in BloodOrdered By: Kylie Box on 06-13-2023 Hemoglobin (Bld) [Mass/Vol] 17.3 g/dL 13.0-17.0 [facility] Ketones Auto test strip (U) [Mass/Vol]Ordered By: PROVIDER TEMP on 06-13-2023 Ketones (U) [Mass/Vol] Negative Negative [facility] Laboratory - UrinalysisOrder ed By: PROVIDER TEMP on 06-13-2023 Hyaline casts LM Ql (Urine sed) None seen [LPF] 0-8 [facility] Leukocytes [#/volume] correc emperatriz for nucleated erythrocytes in Blood by Automated counOrdered By: Kylie Box on 06-13-2023 WBC corrected for nucl RBC Auto (Bld) [#/Vol] 8.9 10*3/uL 4.1-10.5 [facility] Lymphocytes Auto (Bld) [#/Vo l]Ordered By: Kylie Bullimore on 06-13-2023 Lymphocytes (Bld) [#/Vol] 1.2 10*3/uL 1.00-4.8 [facility] Lymphocytes/100 WBC Auto (Bl d)Ordered By: Kylie Bullimore on 06-13-2023 Lymphocytes/100 WBC (Bld) 13.1 % . [facility] MCH Auto (RBC) [Entitic mass ]Ordered By: Kylie Bullimore on 06-13-2023 MCH (RBC) [Entitic mass] 31.7 pg 27.5-35.2 [facility] MCHC Auto (RBC) [Mass/Vol]Or dered By: Kylie Bullimore on 06-13-2023 MCHC (RBC) [Mass/Vol] 34.2 g/dL 32.5-35.6 [facility] MCV Auto (RBC) [Entitic vol] Ordered By: Kylie Bullimore on 06-13-2023 MCV (RBC) [Entitic vol] 92.8 fL 83.5-[address] [facility] Monocyte distribution width [Entitic volume] in Blood by AutomatedOrdered By: Kylie Bullimore on 06-13-2023 Monocyte distribution width Auto (Bld) [Entitic vol] 20.72 % 0.00-20.00 [facility] Comment on above: For adults in ED, MD W > 20.0 may be associated with a higher risk of sepsis during the first 12 hrs of hospital admission Monocytes Auto (Bld) [#/Vol] Ordered By: Kylie Bullimore on 06-13-2023 Monocytes (Bld) [#/Vol] 0.8 10*3/uL 0.0-0.8 [facility] Monocytes/100 WBC Auto (Bld) Ordered By: Kylie Bullimore on 06-13-2023 Monocytes/100 WBC (Bld) 9.3 % . [facility] Neutrophils Auto (Bld) [#/Vo l]Ordered By: Kylie Bullimore on 06-13-2023 Neutrophils (Bld) [#/Vol] 6.7 10*3/uL 1.8-7.7 [facility] Neutrophils/100 WBC Auto (Bl d)Ordered By: Kylie Cancinoimore on 06-13-2023 Neutrophils/100 WBC (Bld) 74.7 % . [facility] Nitrite Test strip Ql (U)Ord ered By: PROVIDER TEMP on 06-13-2023 Nitrite Ql (U) Negative Negative [facility] No Panel InformationOrdered By: Kylie Box on 06-13-2023 Estimated GFR (CKD-EPI) > 60.0 mL/Min [facility] Creatinine Clearance (Chem 89.39 [facility] Nucleated erythrocytes [Pres ence] in Blood by Automated countOrdered By: Kylie Box on 06-13-2023 Nucleated RBC Auto Ql (Bld) 0.2 /100{WBC} 0-0.5 [facility] Platelet adequacy [Presence] in Blood by Light microscopyOrdered By: Kylie Cancinoimprateek on 06-13-2023 Platelets LM Ql (Bld) Normal Normal [facility] Platelet mean volume Auto (B ld) [Entitic vol]Ordered By: Kylie Cancinoimore on 06-13-2023 Platelet mean volume (Bld) [Entitic vol] 10.0 fL 6.6-10.1 [facility] Platelet morphology finding [Identifier] in BloodOrdered By: Kylie Cancinoimore on 06-13-2023 Platelet morphology finding Nom (Bld) N/A [facility] Platelets Auto (Bld) [#/Vol] Ordered By: Kylie Cancinoimore on 06-13-2023 Platelets (Bld) [#/Vol] 171 10*3/uL 150-450 [facility] Platelets Large [Presence] i n Blood by Light microscopyOrdered By: Kylie Cancinoimprateek on 06-13-2023 Platelets Large LM Ql (Bld) Slight [facility] Potassium [Moles/volume] in Serum or PlasmaOrdered By: Kylie Cancinoimore on 06-13-2023 Potassium [Moles/Vol] 4.4 mmol/L 3.5-5.1 [facility] Protein Auto test strip (U) [Mass/Vol]Ordered By: PROVIDER TEMP on 06-13-2023 Protein (U) [Mass/Vol] Negative Negative [facility] Protein [Mass/volume] in Ser um or PlasmaOrdered By: Kylie Cancinoimore on 06-13-2023 Protein [Mass/Vol] 6.8 g/dL 6.4-8.[address] [facility] RBC Auto (Bld) [#/Vol]Ordere d By: Kylie Bullimore on 06-13-2023 RBC (Bld) [#/Vol] 5.46 10*6/uL 3.90-5.60 [facility] RBC morphologyOrdered By: Sariah Cancinoimore on 06-13-2023 RBC morphology finding Nom (Bld) Normal Normal [facility] Scan and CBCon 06-13-2023 Basophils (Bld) [#/Vol] 0.1 10*3/uL Normal 0.0-0.2 [facility] Comment on above: Performed By: #### F ER, FE and TIBC, CBC #### [facility] [address] [place] [address] [place] Basophils/100 WBC (Bld) 0.6 % Normal . [facility] Comment on above: Performed By: #### F ER, FE and TIBC, CBC #### [facility] [address] [place] [address] [place] Eosinophils (Bld) [#/Vol] 0.2 10*3/uL Normal 0.0-0.45 [facility] Comment on above: Performed By: #### F ER, FE and TIBC, CBC #### [facility] [address] [place] [address] [place] Eosinophils/100 WBC (Bld) 2.3 % Normal . [facility] Comment on above: Performed By: #### F ER, FE and TIBC, CBC #### [facility] [address] [place] [address] [place] Erythrocyte distribution width (RBC) [Ratio] 13.8 % Normal 12.0-14.8 [facility] Comment on above: Performed By: #### F ER, FE and TIBC, CBC #### [address] Hematocrit (Bld) [Volume fraction] 50.7 % High 38.8-50.0 [facility] Comment on above: Performed By: #### F ER, FE and TIBC, CBC #### [address] Hemoglobin (Bld) [Mass/Vol] 17.3 g/dL High 13.0-17.0 [facility] Comment on above: Performed By: #### F ER, FE and TIBC, CBC #### [address] Large Platelets Slight Normal [facility] Comment on above: Result Comment: PERF ORMED BY: [place] [address] PATHOLOGIST NEGATIVE ASSEMBLER LAURYN LAGOS M.D. Performed By: #### F ER, FE and TIBC, CBC #### [address] Lymphocytes (Bld) [#/Vol] 1.2 10*3/uL Normal 1.00-4.8 [facility] Comment on above: Performed By: #### F ER, FE and TIBC, CBC #### [address] Lymphocytes/100 WBC (Bld) 13.1 % Normal . [facility] Comment on above: Performed By: #### F ER, FE and TIBC, CBC #### [address] MCH (RBC) [Entitic mass] 31.7 pg Normal 27.5-35.2 [facility] Comment on above: Performed By: #### F ER, FE and TIBC, CBC #### [address] MCV (RBC) [Entitic vol] 92.8 fL Normal 83.5-[address] [facility] Comment on above: Performed By: #### F ER, FE and TIBC, CBC #### [facility] [address] Mean Corpuscular HGB Conc 34.2 g/dL Normal 32.5-35.6 [facility] Comment on above: Performed By: #### F ER, FE and TIBC, CBC #### [facility] [address] [place] [address] [place] Monocytes (Bld) [#/Vol] 0.8 10*3/uL Normal 0.0-0.8 [facility] Comment on above: Performed By: #### F ER, FE and TIBC, CBC #### [facility] [address] [place] [address] [place] Monocytes/100 WBC (Bld) 20.72 % High 0.00-20.00 [facility] Comment on above: Result Comment: For adults in ED, MDW > 20.0 may be associated with a higher risk of sepsis during the first 12 hrs of hospital admission Performed By: #### F ER, FE and TIBC, CBC #### [facility] [address] Monocytes/100 WBC (Bld) 9.3 % Normal . [facility] Comment on above: Performed By: #### F ER, FE and TIBC, CBC #### [facility] [address] [place] [address] [place] Neutrophils (Bld) [#/Vol] 6.7 10*3/uL Normal 1.8-7.7 [facility] Comment on above: Performed By: #### F ER, FE and TIBC, CBC #### [facility] [address] [place] [address] [place] Neutrophils/100 WBC (Bld) 74.7 % Normal . [facility] Comment on above: Performed By: #### F ER, FE and TIBC, CBC #### [facility] [address] [place] [address] [place] NRBC% 0.2 /100{WBC} Normal 0-0.5 [facility] Comment on above: Performed By: #### F ER, FE and TIBC, CBC #### [facility] [address] Platelet Estimate Normal Normal Normal [facility] Comment on above: Performed By: #### F ER, FE and TIBC, CBC #### [facility] [address] Platelet mean volume (Bld) [Entitic vol] 10.0 fL Normal 6.6-10.1 [facility] Comment on above: Performed By: #### F ER, FE and TIBC, CBC #### [facility] [address] Platelets (Bld) [#/Vol] 171 10*3/uL Normal 150-450 [facility] Comment on above: Performed By: #### F ER, FE and TIBC, CBC #### [address] RBC (Bld) [#/Vol] 5.46 10*6/uL Normal 3.90-5.60 [facility] Comment on above: Performed By: #### F ER, FE and TIBC, CBC #### [facility] [address] RBC morphology finding Nom (Bld) Normal Normal Normal [facility] Comment on above: Performed By: #### F ER, FE and TIBC, CBC #### [address] WBC (Bld) [#/Vol] 8.9 10*3/uL Normal 4.1-10.[address] [facility] Comment on above: Performed By: #### F ER, FE and TIBC, CBC #### [address] Serum or plasma albumin/glob ulin mass ratioOrdered By: Kylie Box on 06-13-2023 Albumin/Globulin [Mass ratio] 1.5 {ratio} [facility] Serum or plasma anion gap de terminationOrdered By: Kylie Box on 06-13-2023 Anion gap [Moles/Vol] 8.4 mmol/L 6.0-15.0 [facility] Sodium [Moles/volume] in Ser um or PlasmaOrdered By: Kylie Cancinoimore on 06-13-2023 Sodium [Moles/Vol] 140 mmol/L 136-[address] [facility] Specific gravity Auto test s trip (U) [Rel density]Ordered By: PROVIDER TEMP on 06-13-2023 Specific gravity (U) [Rel density] 1.019 1.001-1.03 0 [facility] Squamous epithelial cells de tection in urine sediment by light microscopyOrdered By: PROVIDER TEMP on 06-13-2023 Epithelial cells.squamous LM Ql (Urine sed) None seen [HPF] 0-2 [facility] Urea nitrogen [Mass/volume] in Serum or PlasmaOrdered By: Kylie Cancinoimprateek on 06-13-2023 Urea nitrogen [Mass/Vol] 13 mg/dL 7-25 [facility] Urine Cultureon 06-13-2023 Bacteria identified Cx Nom (U) <9,000 colonies/ml mixed bacterial skin contaminants 2 Days PERFORMED BY: [place] [address] PATHOLOGIST NEGATIVE ASSEMBLER LAURYN LAGOS M.D. [facility] Comment on above: Performed By: #### F ER, FE and TIBC, CBC #### [address] Urine bacteria detection by automated methodOrdered By: PROVIDER TEMP on 06-13-2023 Bacteria Auto Ql (U) None seen None Seen [facility] Urine clarity by refractomet ry automatedOrdered By: PROVIDER TEMP on 06-13-2023 Clarity Refractometry automated (U) Clear Clear [facility] Urine culture routineOrdered By: Kylie Box on 06-13-2023 Bacteria identified Cx Nom (U) 2 Days [facility] Bacteria identified Cx Nom (U) 2 Days [facility] Urine glucose measurement by automated test strip (mass/volume)Ordered By: PROVIDER TEMP on 06-13-2023 Glucose Auto test strip (U) [Mass/Vol] Normal mg/dL Normal [facility] Urine hemoglobin detection b y automated test stripOrdered By: PROVIDER TEMP on 06-13-2023 Hemoglobin Auto test strip Ql (U) Trace Negative [facility] Urine leukocyte esterase det ection by automated test stripOrdered By: PROVIDER TEMP on 06-13-2023 Leukocyte esterase Auto test strip Ql (U) 2+ Negative [facility] Urine sediment crystal ident ification by light microscopyOrdered By: PROVIDER TEMP on 06-13-2023 Crystals LM Nom (Urine sed) N/A [facility] Urobilinogen Auto test strip (U) [Mass/Vol]Ordered By: PROVIDER TEMP on 06-13-2023 Urobilinogen (U) [Mass/Vol] Normal mg/dL Normal [facility] WBC Auto (Bld) [#/Vol]Ordere d By: Kylie Box on 06-13-2023 WBC (Bld) [#/Vol] 8.9 10*3/uL 4.1-10.[address] [facility] pH Auto test strip (U)Ordere d By: PROVIDER TEMP on 06-13-2023 pH (U) 6.0 [pH] 5.0-9.[address] [facility] [address] abdomen pelvis w conon CT abdomen pelvis w con [place] [address] CT Scan Report Signed Patient: Nathan Martin MR#: [id number] : 1955 Acct:[id number] Age/Sex: 67 / M ADM Date: 05/08/23 Loc: ER Room: Type: [facility] ER Attending Dr: Copies to: Phil Castaneda DO Ordering Provider: Phil Castaneda DO Date of Service: 05/09/23 CT/CT abdomen pelvis w con: l sided abd pain CT ABDOMEN AND PELVIS WITH INTRAVENOUS CONTRAST: CLINICAL HISTORY: Left-sided abdominal pain with constipation for 3 weeks COMPARISON: CT abdomen and pelvis 04/21/2023 TECHNIQUE: Spiral images were obtained through the abdomen and pelvis following the administration of intravenous contrast. This CT exam was performed using one or more following dose reduction techniques: Automated exposure control, adjustment of the mA and/or kV according to patient size, or use of iterative reconstruction technique. FINDINGS: Lung Bases: [Mild bibasilar atelectasis.] Organs:Gallbladder has been removed. Liver spleen pancreas and adrenal glands appear unremarkable. No enhancing renal mass or hydronephrosis. Bilateral nephrolithiasis, largest stone measuring 7 mm within the left kidney. Abdominal aorta appears normal in caliber.[ GI: Stomach is grossly unremarkable. Small bowel appears nondilated. Appendix appears normal. Left colon diverticulosis.[ Pelvis:[Urinary bladder demonstrates a questionable punctate stone. Prostatomegaly.] Peritoneum/Retroperitoneum :No free air, free fluid or lymphadenopathy.[ Abd wall/Bones:Abdominal wall demonstrates no acute findings. Osseous structures demonstrate degenerative change.[ CT/CT abdomen pelvis w con IMPRESSION: No acute findings. Bilateral nephrolithiasis with questionable punctate stone involving the urinary bladder.. Impression dictated by: Eulogio Best Jr., D.O.05/09/2023 8:44 AM Dictation Location: [place] [address] Transcribed By: [facility] 05/09/23843 Dictated By: Eulogio Best Jr, DO 05/09/2336 Signed By: 05/09/23843 Normal [facility] Alanine aminotransferase [En zymatic activity/volume] in Serum or PlasmaOrdered By: Phil Castaneda on 05-08-2023 ALT [Catalytic activity/Vol] 26 U/L 7-52 [facility] Albumin [Mass/volume] in Ser um or Plasma by Bromocresol green (BCG) dye binding methoOrdered By: Phil Castaneda on 05-08-2023 Albumin BCG dye [Mass/Vol] 4.3 g/dL 3.5-5.7 [facility] Alkaline phosphatase [Enzyma tic activity/volume] in Serum or PlasmaOrdered By: Phil Castaneda on 05-08-2023 ALP [Catalytic activity/Vol] 39 U/L 34-104 [facility] Aspartate aminotransferase [ Enzymatic activity/volume] in Serum or PlasmaOrdered By: Phil Castaneda on 05-08-2023 AST [Catalytic activity/Vol] 24 U/L 13-39 [facility] Automated erythrocytes count in urine sediment (number/area)Ordered By: Phil Castaneda on 05-08-2023 RBC Auto (Urine sed) [#/Area] 3-4 [HPF] 0-4 [facility] Automated leukocytes count i n urine sediment (number/area)Ordered By: Phil Castaneda on 05-08-2023 WBC Auto (Urine sed) [#/Area] 3-4 [HPF] 0-4 [facility] Basic Metabolic Panelon Anion gap [Moles/Vol] 12.2 mmol/L Normal 6.0-15.0 [facility] Comment on above: Performed By: #### A ARVIND CUU #### [facility] [address] Calcium [Mass/Vol] 9.5 mg/dL Normal 8.6-10.[address] [facility] Comment on above: Performed By: #### A ARVIND CUU #### [facility] [address] [place] [address] [place] Chloride [Moles/Vol] 109 mmol/L High 98-107 [facility] Comment on above: Performed By: #### A ARVIND CUU #### [facility] [address] [place] [address] [place] CO2 [Moles/Vol] 23.1 mmol/L Normal 21.0-31.0 [facility] Comment on above: Performed By: #### A ARVIND CUU #### [facility] [address] [place] [address] [place] Creatinine [Mass/Vol] 0.80 mg/dL Normal 0.70-1.30 [facility] Comment on above: Performed By: #### A ARVIND CUU #### [facility] [address] [place] [address] [place] Creatinine Clr Calc Pharmacy 93.71 [facility] Comment on above: Performed By: #### A ARVIND CUU #### [facility] [address] [place] [address] [place] GFR/1.73 sq M.predicted MDRD (S/P/Bld) [Vol rate/Area] mL/min/{1.73_m2} [facility] Comment on above: Performed By: #### A ARVIND CUU #### [facility] [address] Glucose [Mass/Vol] 80 mg/dL Normal 70-[address] [facility] Comment on above: Result Comment: [facility] Glucose Reference Range is dependent on time and content of last meal. Glucose of more than 200 mg/dL in a nonstressed, ambulatory subject supports the diagnosis of Diabetes Mellitus. ADA recommended reference range Performed By: #### A DDONUAPLUS, CUU #### [facility] [address] Potassium [Moles/Vol] 4.3 mmol/L Normal 3.5-5.1 [facility] Comment on above: Performed By: #### A DDALICIAUAPLUS, CUU #### [address] Sodium [Moles/Vol] 140 mmol/L Normal 136-[address] [facility] Comment on above: Performed By: #### A DDONUAPLUS, CUU #### [address] Urea nitrogen [Mass/Vol] 12 mg/dL Normal 7-25 [facility] Comment on above: Performed By: #### A RISHIUAPLUS, CUU #### [address] Basophils Auto (Bld) [#/Vol] Ordered By: Phil Castaneda on 05-08-2023 Basophils (Bld) [#/Vol] 0.1 10*3/uL 0.0-0.2 [facility] Basophils/100 WBC Auto (Bld) Ordered By: Phil Castaneda on 05-08-2023 Basophils/100 WBC (Bld) 1.0 % . [facility] Bilirubin Test strip Ql (U)O rdered By: Phil Castaneda on 05-08-2023 Bilirubin Ql (U) Negative Negative [facility] Bilirubin.direct [Mass/volum e] in Serum or PlasmaOrdered By: Phil Castaenda on 05-08-2023 Bilirubin.direct [Mass/Vol] 0.20 mg/dL 0.03-0.18 [facility] Bilirubin.total [Mass/volume ] in Serum or PlasmaOrdered By: Phil Castaneda on 05-08-2023 Bilirubin [Mass/Vol] 0.7 mg/dL 0.3-1.0 [facility] Calcium [Mass/volume] in Ser um or PlasmaOrdered By: Phil Castaneda on 05-08-2023 Calcium [Mass/Vol] 9.5 mg/dL 8.6-10.[address] [facility] Carbon dioxide, total [Moles /volume] in Serum or PlasmaOrdered By: Phil Castaneda on 05-08-2023 CO2 [Moles/Vol] 23.1 mmol/L 21.0-31.0 [facility] Chloride [Moles/volume] in S prasanth or PlasmaOrdered By: Phil Castaneda on 05-08-2023 Chloride [Moles/Vol] 109 mmol/L 98-107 [facility] Color Auto (U)Ordered By: Carlos Castaneda on 05-08-2023 Color (U) Yellow Yellow [facility] Complete Blood Count Auto Di ffon 05-08-2023 Basophils (Bld) [#/Vol] 0.1 10*3/uL Normal 0.0-0.2 [facility] Comment on above: Result Comment: PERF ORMED BY: [place] [address] PATHOLOGIST NEGATIVE ASSEMBLER LAURYN LAGOS M.D. Performed By: #### A DDONUAPLUS, CUU #### [facility] [address] [place] [address] [place] Basophils/100 WBC (Bld) 1.0 % Normal . [facility] Comment on above: Performed By: #### A DDONUAPLUS, CUU #### [facility] [address] [place] [address] [place] Eosinophils (Bld) [#/Vol] 0.2 10*3/uL Normal 0.0-0.45 [facility] Comment on above: Performed By: #### A DDONUAPLUS, CUU #### [facility] [address] [place] [address] [place] Eosinophils/100 WBC (Bld) 2.3 % Normal . [facility] Comment on above: Performed By: #### A ARVIND CUU #### [address] Erythrocyte distribution width (RBC) [Ratio] 14.2 % Normal 12.0-14.8 [facility] Comment on above: Performed By: #### A ARVIND CUU #### [address] Hematocrit (Bld) [Volume fraction] 51.4 % High 38.8-50.0 [facility] Comment on above: Performed By: #### A ARVIND CUU #### [address] Hemoglobin (Bld) [Mass/Vol] 17.9 g/dL High 13.0-17.0 [facility] Comment on above: Performed By: #### A ARVIND CUU #### [address] Lymphocytes (Bld) [#/Vol] 1.4 10*3/uL Normal 1.00-4.8 [facility] Comment on above: Performed By: #### A ARVIND CUU #### [address] Lymphocytes/100 WBC (Bld) 15.4 % Normal . [facility] Comment on above: Performed By: #### A ARVIND CUU #### [address] MCH (RBC) [Entitic mass] 32.1 pg Normal 27.5-35.2 [facility] Comment on above: Performed By: #### A ARVIND CUU #### [address] MCV (RBC) [Entitic vol] 92.1 fL Normal 83.5-[address] [facility] Comment on above: Performed By: #### A ARVIND, CUU #### [place] [address] Mean Corpuscular HGB Conc 34.8 g/dL Normal 32.5-35.6 [facility] Comment on above: Performed By: #### A DDONUAPLUS, CUU #### [facility] [address] [place] [address] [place] Monocytes (Bld) [#/Vol] 0.6 10*3/uL Normal 0.0-0.8 [facility] Comment on above: Performed By: #### A DDONUAPLUS, CUU #### [facility] [address] [place] [address] [place] Monocytes/100 WBC (Bld) 17.33 % Normal 0.00-20.00 [facility] Comment on above: Performed By: #### A DDONUAPLUS, CUU #### [facility] [address] [place] [address] [place] Monocytes/100 WBC (Bld) 7.1 % Normal . [facility] Comment on above: Performed By: #### A DDONUAPLUS, CUU #### [facility] [address] [place] [address] [place] Neutrophils (Bld) [#/Vol] 6.7 10*3/uL Normal 1.8-7.7 [facility] Comment on above: Performed By: #### A DDONUAPLUS, CUU #### [facility] [address] [place] [id number] [place] Neutrophils/100 WBC (Bld) 74.2 % Normal . [facility] Comment on above: Performed By: #### A DDONUAPLUS, CUU #### [facility] [address] [place] [address] [place] NRBC% 0.1 /100{WBC} Normal 0-0.5 [facility] Comment on above: Performed By: #### A DDONUAPLUS, CUU #### [facility] [address] [place] [address] [place] Platelet mean volume (Bld) [Entitic vol] 9.8 fL Normal 6.6-10.1 [facility] Comment on above: Performed By: #### A DDONUAPLUS, CUU #### [facility] [address] Platelets (Bld) [#/Vol] 210 10*3/uL Normal 150-450 [facility] Comment on above: Performed By: #### A DDONUAPLUS, CUU #### [address] RBC (Bld) [#/Vol] 5.58 10*6/uL Normal 3.90-5.60 [facility] Comment on above: Performed By: #### A DDONUAPLUS, CUU #### [address] WBC (Bld) [#/Vol] 9.0 10*3/uL Normal 4.1-10.[address] [facility] Comment on above: Performed By: #### A DDONUAPLUS, CUU #### [address] Creatinine [Mass/volume] in Serum or PlasmaOrdered By: Phil Castaneda on 05-08-2023 Creatinine [Mass/Vol] 0.80 mg/dL 0.70-1.30 [facility] Dipstick and Microscopicon 0 05-08-2023 Appearance (U) Clear Normal Clear [facility] Comment on above: Order Comment: Name Collection Type:: Clean-Voided Midstream Performed By: #### A DDONUAPLUS #### [address] Bacteria,Urine None Seen Normal None Seen [facility] Comment on above: Order Comment: Name Collection Type:: Clean-Voided Midstream Performed By: #### A DDONUAPLUS #### [place] [address] [place] Bilirubin,Urine Negative Normal Negative [facility] Comment on above: Order Comment: Name Collection Type:: Clean-Voided Midstream Performed By: #### A DDONUAPLUS #### [address] Color (U) Yellow Normal Yellow [facility] Comment on above: Order Comment: Name Collection Type:: Clean-Voided Midstream Performed By: #### A DDONUAPLUS #### [address] Glucose Ql (U) Normal Normal Normal [facility] Comment on above: Order Comment: Name Collection Type:: Clean-Voided Midstream Performed By: #### A DDONUAPLUS #### [address] Hyaline Casts,Urine None Seen Normal 0-8 [facility] Comment on above: Order Comment: Name Collection Type:: Clean-Voided Midstream Result Comment: PERF ORMED BY: [place] [address] PATHOLOGIST NEGATIVE ASSEMBLER LAURYN LAGOS M.D. Performed By: #### A DDONUAPLUS #### [facility] [address] [place] [address] [place] Ketones Ql (U) Negative Normal Negative [facility] Comment on above: Order Comment: Name Collection Type:: Clean-Voided Midstream Performed By: #### A DDONUAPLUS #### [address] Leukocyte esterase Test strip Ql (U) 2+ High Negative [facility] Comment on above: Order Comment: Name Collection Type:: Clean-Voided Midstream Performed By: #### A DDONUAPLUS #### [facility] [address] [place] [address] [place] Nitrite,Urine Negative Normal Negative [facility] Comment on above: Order Comment: Name Collection Type:: Clean-Voided Midstream Performed By: #### A DDONUAPLUS #### [facility] [address] [place] [address] [place] Occult Blood,Urine Trace High Negative [facility] Comment on above: Order Comment: Name Collection Type:: Clean-Voided Midstream Result Comment: PERF ORMED BY: [place] [address] PATHOLOGIST NEGATIVE ASSEMBLER LAURYN LAGOS M.D. Performed By: #### A DDONUAPLUS #### [address] pH (U) 7.0 [pH] Normal 5.0-9.0 [facility] Comment on above: Order Comment: Name Collection Type:: Clean-Voided Midstream Performed By: #### A DDONUAPLUS #### [address] Protein,Urine Negative Normal Negative [facility] Comment on above: Order Comment: Name Collection Type:: Clean-Voided Midstream Performed By: #### A DDONUAPLUS #### [address] RBC,Urine 3-4 Normal 0-4 [facility] Comment on above: Order Comment: Name Collection Type:: Clean-Voided Midstream Performed By: #### A DDONUAPLUS #### [address] Specificy [place],Urine 1.013 Normal 1.00 1-1.03 0 [facility] Comment on above: Order Comment: Name Collection Type:: Clean-Voided Midstream Performed By: #### A DDONUAPLUS #### [address] Squamous Epithelial Cell,Urine None Seen Normal 0-2 [facility] Comment on above: Order Comment: Name Collection Type:: Clean-Voided Midstream Performed By: #### A DDONUAPLUS #### [address] Urobilinogen,Urine Normal Normal Normal [facility] Comment on above: Order Comment: Name Collection Type:: Clean-Voided Midstream Performed By: #### A DDONUAPLUS #### [place] [address] [place] WBC,Urine 3-4 Normal 0-4 [facility] Comment on above: Order Comment: Name Collection Type:: Clean-Voided Midstream Performed By: #### A DDONUAPLUS #### [facility] [address] [place] [address] [place] Eosinophils Auto (Bld) [#/Vo l]Ordered By: Phil Castaneda on 05-08-2023 Eosinophils (Bld) [#/Vol] 0.2 10*3/uL 0.0-0.45 [facility] Eosinophils/100 WBC Auto (Bl d)Ordered By: Phil Castaneda on 05-08-2023 Eosinophils/100 WBC (Bld) 2.3 % . [facility] Erythrocyte distribution wid th Auto (RBC) [Ratio]Ordered By: Phil Castaneda on 05-08-2023 Erythrocyte distribution width (RBC) [Ratio] 14.2 % 12.0-14.8 [facility] Globulin Calc (S) [Mass/Vol] Ordered By: Phil Castaneda on 05-08-2023 Globulin (S) [Mass/Vol] 2.7 g/dL [facility] Glucose [Mass/volume] in Ser um or PlasmaOrdered By: Phil Castaneda on 05-08-2023 Glucose [Mass/Vol] 80 mg/dL 70-[address] [facility] Comment on above: ADA recommended refe rence rangeRandom Glucose Reference Range is dependent on time and content of last meal. Glucose of more than 200 mg/dL in a nonstressed, ambulatory subject supports the diagnosis of Diabetes Mellitus. Hematocrit Auto (Bld) [Volum e fraction]Ordered By: Phil Castaneda on 05-08-2023 Hematocrit (Bld) [Volume fraction] 51.4 % 38.8-50.0 [facility] Hemoglobin [Mass/volume] in BloodOrdered By: Phil Castaneda on 05-08-2023 Hemoglobin (Bld) [Mass/Vol] 17.9 g/dL 13.0-17.0 [facility] Hepatic Panelon 05-08-2023 Albumin [Mass/Vol] 4.3 g/dL Normal 3.5-5.[address] [facility] Comment on above: Performed By: #### A DDONUAPLUS, CUU #### [facility] [address] [place] [id number] [facility] Albumin/Globulin [Mass ratio] 1.6 {ratio} Normal [facility] Comment on above: Performed By: #### A DDONUAPLUS, CUU #### [facility] [address] ALP [Catalytic activity/Vol] 39 U/L Normal 34-104 [facility] Comment on above: Performed By: #### A DDONUAPLUS, CUU #### [facility] [address] ALT [Catalytic activity/Vol] 26 U/L Normal 7-52 [facility] Comment on above: Performed By: #### A DDONUAPLUS, CUU #### [facility] [address] AST [Catalytic activity/Vol] 24 U/L Normal 13-39 [facility] Comment on above: Performed By: #### A DDONUAPLUS, CUU #### [facility] [address] [place] [address] Bilirubin [Mass/Vol] 0.7 mg/dL Normal 0.3-1.0 [facility] Comment on above: Performed By: #### A DDONUAPLUS, CUU #### [facility] [address] [place] [address] [place] Bilirubin,Indirect 0.5 mg/dL Normal [facility] Comment on above: Performed By: #### A DDONUAPLUS, CUU #### [facility] [address] Bilirubin.indirect [Mass/Vol] 0.20 mg/dL High 0.03-0.18 [facility] Comment on above: Performed By: #### A DDONUAPLUS, CUU #### [facility] [address] [place] [address] [place] Globulin (S) [Mass/Vol] 2.7 g/dL Normal [facility] Comment on above: Performed By: #### A DDONUAPLUS, CUU #### [facility] [address] Protein [Mass/Vol] 7.0 g/dL Normal 6.4-8.[address] [facility] Comment on above: Performed By: #### A ARVIND, CUU #### [facility] [address] Ketones Auto test strip (U) [Mass/Vol]Ordered By: Phil Castaneda on 05-08-2023 Ketones (U) [Mass/Vol] Negative Negative [facility] Laboratory - UrinalysisOrder ed By: Phil Castaneda on 05-08-2023 Hyaline casts LM Ql (Urine sed) None seen [LPF] 0-8 [facility] Leukocytes [#/volume] correc emperatriz for nucleated erythrocytes in Blood by Automated counOrdered By: Phil Castaneda on 05-08-2023 WBC corrected for nucl RBC Auto (Bld) [#/Vol] 9.0 10*3/uL 4.1-10.5 [facility] Lipaseon 05-08-2023 Lipase [Catalytic activity/Vol] 17.0 U/L Normal 11.0-82.0 [facility] Comment on above: Result Comment: PERF ORMED BY: [place] [address] PATHOLOGIST NEGATIVE ASSEMBLER LAURYN LAGOS M.D. Performed By: #### A ARVIND, CUU #### [facility] [address] [place] [address] Lipase [Enzymatic activity/v olume] in Serum or PlasmaOrdered By: Phil Castaneda on 05-08-2023 Lipase [Catalytic activity/Vol] 17.0 U/L 11.0-82.0 [facility] Lymphocytes Auto (Bld) [#/Vo l]Ordered By: Phil Castaneda on 05-08-2023 Lymphocytes (Bld) [#/Vol] 1.4 10*3/uL 1.00-4.8 [facility] Lymphocytes/100 WBC Auto (Bl d)Ordered By: Phil Castaneda on 05-08-2023 Lymphocytes/100 WBC (Bld) 15.4 % . [facility] MCH Auto (RBC) [Entitic mass ]Ordered By: Phil Castaneda on 05-08-2023 MCH (RBC) [Entitic mass] 32.1 pg 27.5-35.2 [facility] MCHC Auto (RBC) [Mass/Vol]Or dered By: Phil Castaneda on 05-08-2023 MCHC (RBC) [Mass/Vol] 34.8 g/dL 32.5-35.6 [facility] MCV Auto (RBC) [Entitic vol] Ordered By: Phil Castaneda on 05-08-2023 MCV (RBC) [Entitic vol] 92.1 fL 83.5-[address] [facility] Monocyte distribution width [Entitic volume] in Blood by AutomatedOrdered By: Pihl Castaneda on 05-08-2023 Monocyte distribution width Auto (Bld) [Entitic vol] 17.33 % 0.00-20.00 [facility] Monocytes Auto (Bld) [#/Vol] Ordered By: Phil Castaneda on 05-08-2023 Monocytes (Bld) [#/Vol] 0.6 10*3/uL 0.0-0.8 [facility] Monocytes/100 WBC Auto (Bld) Ordered By: Phil Castaneda on 05-08-2023 Monocytes/100 WBC (Bld) 7.1 % . [facility] Neutrophils Auto (Bld) [#/Vo l]Ordered By: Phil Castaneda on 05-08-2023 Neutrophils (Bld) [#/Vol] 6.7 10*3/uL 1.8-7.7 [facility] Neutrophils/100 WBC Auto (Bl d)Ordered By: Phil Castaneda on 05-08-2023 Neutrophils/100 WBC (Bld) 74.2 % . [facility] Nitrite Test strip Ql (U)Ord ered By: Phil Castaneda on 05-08-2023 Nitrite Ql (U) Negative Negative [facility] No Panel InformationOrdered By: Phil Castaneda on 05-08-2023 Estimated GFR (CKD-EPI) > 60.0 mL/Min [facility] Creatinine Clearance (Chem 93.71 [facility] Nucleated erythrocytes [Pres ence] in Blood by Automated countOrdered By: Phil Castaneda on 05-08-2023 Nucleated RBC Auto Ql (Bld) 0.1 /100{WBC} 0-0.5 [facility] Platelet mean volume Auto (B ld) [Entitic vol]Ordered By: Phil Castaneda on 05-08-2023 Platelet mean volume (Bld) [Entitic vol] 9.8 fL 6.6-10.1 [facility] Platelets Auto (Bld) [#/Vol] Ordered By: Phil Castaneda on 05-08-2023 Platelets (Bld) [#/Vol] 210 10*3/uL 150-450 [facility] Potassium [Moles/volume] in Serum or PlasmaOrdered By: Phil Castaneda on 05-08-2023 Potassium [Moles/Vol] 4.3 mmol/L 3.5-5.1 [facility] Protein Auto test strip (U) [Mass/Vol]Ordered By: Phil Castaneda on 05-08-2023 Protein (U) [Mass/Vol] Negative Negative [facility] Protein [Mass/volume] in Ser um or PlasmaOrdered By: Phil Castaneda on 05-08-2023 Protein [Mass/Vol] 7.0 g/dL 6.4-8.[address] [facility] RBC Auto (Bld) [#/Vol]Ordere d By: Pihl Castaneda on 05-08-2023 RBC (Bld) [#/Vol] 5.58 10*6/uL 3.90-5.60 [facility] Serum or plasma albumin/glob ulin mass ratioOrdered By: Phil Castaneda on 05-08-2023 Albumin/Globulin [Mass ratio] 1.6 {ratio} [facility] Serum or plasma anion gap de terminationOrdered By: Phil Castaneda on 05-08-2023 Anion gap [Moles/Vol] 12.2 mmol/L 6.0-15.0 [facility] Serum or plasma non-glucuron idated bilirubin measurement (mass/volume)Ordered By: Phil Castaneda on 05-08-2023 Bilirubin.indirect [Mass/Vol] 0.5 mg/dL [facility] Sodium [Moles/volume] in Ser um or PlasmaOrdered By: Phil Castaneda on 05-08-2023 Sodium [Moles/Vol] 140 mmol/L 136-[address] [facility] Specific gravity Auto test s trip (U) [Rel density]Ordered By: Phil Castaneda on 05-08-2023 Specific gravity (U) [Rel density] 1.013 1.001-1.03 0 [facility] Squamous epithelial cells de tection in urine sediment by light microscopyOrdered By: Phil Castaneda on 05-08-2023 Epithelial cells.squamous LM Ql (Urine sed) None seen [HPF] 0-2 [facility] Urea nitrogen [Mass/volume] in Serum or PlasmaOrdered By: Phil Castaneda on 05-08-2023 Urea nitrogen [Mass/Vol] 12 mg/dL 7-25 [facility] Urine bacteria detection by automated methodOrdered By: Phil Castaneda on 05-08-2023 Bacteria Auto Ql (U) None seen None Seen [facility] Urine clarity by refractomet ry automatedOrdered By: Phil Castaneda on 05-08-2023 Clarity Refractometry automated (U) Clear Clear [facility] Urine glucose measurement by automated test strip (mass/volume)Ordered By: Phil Castaneda on 05-08-2023 Glucose Auto test strip (U) [Mass/Vol] Normal mg/dL Normal [facility] Urine hemoglobin detection b y automated test stripOrdered By: Phil Castaneda on 05-08-2023 Hemoglobin Auto test strip Ql (U) Trace Negative [facility] Urine leukocyte esterase det ection by automated test stripOrdered By: Phil Castaneda on 05-08-2023 Leukocyte esterase Auto test strip Ql (U) 2+ Negative [facility] Urobilinogen Auto test strip (U) [Mass/Vol]Ordered By: Phil Castaneda on 05-08-2023 Urobilinogen (U) [Mass/Vol] Normal mg/dL Normal [facility] WBC Auto (Bld) [#/Vol]Ordere d By: Phil Castaneda on 05-08-2023 WBC (Bld) [#/Vol] 9.0 10*3/uL 4.1-10.[address] [facility] pH Auto test strip (U)Ordere d By: Phil Castaneda on 05-08-2023 pH (U) 7.0 [pH] 5.0-9.0 [facility] Automated epithelial cells c ount in urine sediment (number/area)Ordered By: Valerio Tee on 04-27-2023 Epithelial cells Auto (Urine sed) [#/Area] 0-1 [HPF] 0-2 [facility] Automated erythrocytes count in urine sediment (number/area)Ordered By: Valerio Tee on 04-27-2023 RBC Auto (Urine sed) [#/Area] 0-1 [HPF] 0-4 [facility] Automated leukocytes count i n urine sediment (number/area)Ordered By: Valerio Tee on 04-27-2023 WBC Auto (Urine sed) [#/Area] 5-9 [HPF] 0-4 [facility] Automated urine hyaline cast s count (number/volume)Ordered By: Valerio Tee on 04-27-2023 Hyaline casts Auto (U) [#/Vol] None seen [LPF] 0-1 [facility] Bilirubin Test strip Ql (U)O rdered By: Valerio Tee on 04-27-2023 Bilirubin Ql (U) Negative Negative [facility] Color Auto (U)Ordered By: Sam Tee on 04-27-2023 Color (U) Dark yellow Yellow [facility] Dipstick and Microscopicon 1 Appearance (U) Clear Normal Clear [facility] Comment on above: Order Comment: Name Collection Type:: Clean-Voided Midstream Performed By: #### A DDONUAPLUS, CUU #### [facility] [address] [place] [address] [place] Bacteria,Urine None Seen Normal None Seen [facility] Comment on above: Order Comment: Name Collection Type:: Clean-Voided Midstream Performed By: #### A DDONUAPLUS, CUU #### [facility] [address] [place] [address] [place] Bilirubin,Urine Negative Normal Negative [facility] Comment on above: Order Comment: Name Collection Type:: Clean-Voided Midstream Performed By: #### A DDONUAPLUS, CUU #### [facility] [address] [place] [address] [place] Color (U) Dark Yellow Critically abnormal Yellow [facility] Comment on above: Order Comment: Name Collection Type:: Clean-Voided Midstream Performed By: #### A DDONUAPLUS, CUU #### [facility] [address] [place] [id number] [place] Glucose Ql (U) Normal Normal Normal [facility] Comment on above: Order Comment: Name Collection Type:: Clean-Voided Midstream Performed By: #### A DDONUAPLUS, CUU #### [facility] [address] [place] [address] [place] Hyaline Casts,Urine None Seen Normal 0-1 [facility] Comment on above: Order Comment: Name Collection Type:: Clean-Voided Midstream Result Comment: PERF ORMED BY: [place] [address] PATHOLOGIST NEGATIVE ASSEMBLER LAURYN LAGOS M.D. Performed By: #### A DDONUAPLUS, CUU #### [address] Ketones Ql (U) Negative Normal Negative [facility] Comment on above: Order Comment: Name Collection Type:: Clean-Voided Midstream Performed By: #### A DDONUAPLUS, CUU #### [facility] [address] [place] [address] [place] Leukocyte esterase Test strip Ql (U) 3+ High Negative [facility] Comment on above: Order Comment: Name Collection Type:: Clean-Voided Midstream Performed By: #### A DDONUAPLUS, CUU #### [place] [address] [place] Nitrite,Urine Positive High Negative [facility] Comment on above: Order Comment: Name Collection Type:: Clean-Voided Midstream Performed By: #### A DDONUAPLUS, CUU #### [facility] [address] [place] [address] [place] Occult Blood,Urine 1+ High Negative [facility] Comment on above: Order Comment: Name Collection Type:: Clean-Voided Midstream Result Comment: PERF ORMED BY: [place] [address] PATHOLOGIST NEGATIVE ASSEMBLER LAURYN LAGOS M.D. Performed By: #### A DDONUAPLUS, CUU #### [address] pH (U) 5.5 [pH] Normal 5.0-9.0 [facility] Comment on above: Order Comment: Name Collection Type:: Clean-Voided Midstream Performed By: #### A DDONUAPLUS, CUU #### [address] Protein,Urine Negative Normal Negative [facility] Comment on above: Order Comment: Name Collection Type:: Clean-Voided Midstream Performed By: #### A DDONUAPLUS, CUU #### [address] RBC LM.HPF (Urine sed) [#/Area] 0 /[HPF] Normal 0-4 [facility] Comment on above: Order Comment: Name Collection Type:: Clean-Voided Midstream Performed By: #### A DDONUAPLUS, CUU #### [address] Specificy [place],Urine 1.004 Normal 1.00 1-1.03 0 [facility] Comment on above: Order Comment: Name Collection Type:: Clean-Voided Midstream Performed By: #### A DDONUAPLUS, CUU #### [address] Squamous Epithelial Cell,Urine 0-1 Normal 0-2 [facility] Comment on above: Order Comment: Name Collection Type:: Clean-Voided Midstream Performed By: #### A DDONUAPLUS, CUU #### [address] Urobilinogen,Urine Normal Normal Normal [facility] Comment on above: Order Comment: Name Collection Type:: Clean-Voided Midstream Performed By: #### A DDONUAPLUS, CUU #### [place] [address] [place] WBC,Urine 5-9 High 0-4 [facility] Comment on above: Order Comment: Name Collection Type:: Clean-Voided Midstream Performed By: #### A DDONUAPLUS, CUU #### [facility] [address] Ketones Auto test strip (U) [Mass/Vol]Ordered By: Valerio Tee on 04-27-2023 Ketones (U) [Mass/Vol] Negative Negative [facility] Nitrite Test strip Ql (U)Ord ered By: Valerio Tee on 04-27-2023 Nitrite Ql (U) Positive Negative [facility] Protein Auto test strip (U) [Mass/Vol]Ordered By: Valerio Tee on 04-27-2023 Protein (U) [Mass/Vol] Negative Negative [facility] Specific gravity Auto test s trip (U) [Rel density]Ordered By: Valerio Tee on 04-27-2023 Specific gravity (U) [Rel density] 1.004 1.001-1.03 0 [facility] Urine Cultureon 04-27-2023 Bacteria identified Cx Nom (U) No Growth 2 Days PERFORMED BY: [place] [address] PATHOLOGIST NEGATIVE ASSEMBLER LAURYN LAGOS M.D. [facility] Comment on above: Performed By: #### A ARVIND, CUU #### [facility] [address] [place] [address] Urine bacteria detection by automated methodOrdered By: Valerio eTe on 04-27-2023 Bacteria Auto Ql (U) None seen None Seen [facility] Urine clarity by refractomet ry automatedOrdered By: Valerio Tee on 04-27-2023 Clarity Refractometry automated (U) Clear Clear [facility] Urine culture routineOrdered By: Valerio Tee on 04-27-2023 Bacteria identified Cx Nom (U) No Growth 2 Days [facility] Bacteria identified Cx Nom (U) No Growth 2 Days [facility] Urine glucose measurement by automated test strip (mass/volume)Ordered By: Valerio Tee on 04-27-2023 Glucose Auto test strip (U) [Mass/Vol] Normal mg/dL Normal [facility] Urine hemoglobin detection b y automated test stripOrdered By: Valerio Tee on 04-27-2023 Hemoglobin Auto test strip Ql (U) 1+ Negative [facility] Urine leukocyte esterase det ection by automated test stripOrdered By: Valerio Tee on 04-27-2023 Leukocyte esterase Auto test strip Ql (U) 3+ Negative [facility] Urobilinogen Auto test strip (U) [Mass/Vol]Ordered By: Valerio Tee on 04-27-2023 Urobilinogen (U) [Mass/Vol] Normal mg/dL Normal [facility] pH Auto test strip (U)Ordere d By: Valerio Tee on 04-27-2023 pH (U) 5.5 [pH] 5.0-9.0 [facility] Alanine aminotransferase [En zymatic activity/volume] in Serum or PlasmaOrdered By: Juaquin Mendez on 04-21-2023 ALT [Catalytic activity/Vol] 30 U/L 7-52 [facility] Albumin [Mass/volume] in Ser um or Plasma by Bromocresol green (BCG) dye binding methoOrdered By: Juaquin Mendez on 04-21-2023 Albumin BCG dye [Mass/Vol] 4.4 g/dL 3.5-5.7 [facility] Alkaline phosphatase [Enzyma tic activity/volume] in Serum or PlasmaOrdered By: Juaquin Mendez on 04-21-2023 ALP [Catalytic activity/Vol] 34 U/L 34-104 [facility] Aspartate aminotransferase [ Enzymatic activity/volume] in Serum or PlasmaOrdered By: Juaquin Mendez on 04-21-2023 AST [Catalytic activity/Vol] 22 U/L 13-39 [facility] Automated erythrocytes count in urine sediment (number/area)Ordered By: Juaquin Mendez on 04-21-2023 RBC Auto (Urine sed) [#/Area] 5-9 [HPF] 0-4 [facility] Automated leukocytes count i n urine sediment (number/area)Ordered By: Juaquin Mendez on 04-21-2023 WBC Auto (Urine sed) [#/Area] 20-49 [HPF] 0-4 [facility] Basic Metabolic Panelon 03-31 Anion gap [Moles/Vol] Not performed Normal 6.0-15.0 [facility] Comment on above: Performed By: #### A MAGDALENE SAMUELSU #### [facility] [address] [place] [id number] [place] Calcium [Mass/Vol] 9.7 mg/dL Normal 8.6-10.[address] [facility] Comment on above: Performed By: #### A DDALICIAUAPLUS, CUU #### [facility] [address] [place] [id number] [place] Chloride [Moles/Vol] 109 mmol/L High 98-107 [facility] Comment on above: Performed By: #### A RISHIUAPLUS, CUU #### [facility] [address] [place] [address] [place] CO2 [Moles/Vol] 24.3 mmol/L Normal 21.0-31.0 [facility] Comment on above: Performed By: #### A DDALICIAUAPLUS, CUU #### [facility] [address] [place] [address] [place] Creatinine [Mass/Vol] 0.91 mg/dL Normal 0.70-1.30 [facility] Comment on above: Performed By: #### A ARVIND, CUU #### [facility] [address] [place] [address] [place] Creatinine Clr Calc Pharmacy 82.34 [facility] Comment on above: Performed By: #### A DDALICIAUAPLUS, CUU #### [facility] [address] [place] [address] [place] GFR/1.73 sq M.predicted MDRD (S/P/Bld) [Vol rate/Area] mL/min/{1.73_m2} [facility] Comment on above: Performed By: #### A DDALICIAUAPLUS, CUU #### [facility] [address] [place] [address] [place] Glucose [Mass/Vol] 92 mg/dL Normal 70-[address] [facility] Comment on above: Result Comment: [place] Glucose Reference Range is dependent on time and content of last meal. Glucose of more than 200 mg/dL in a nonstressed, ambulatory subject supports the diagnosis of Diabetes Mellitus. ADA recommended reference range Performed By: #### A RISHIUAHALINA CUU #### [facility] [address] [place] [address] [place] Potassium Normal 3.5-5.1 [facility] Comment on above: Result Comment: Spec imen hemolyzed, redraw requested Performed By: #### A DDONUAPLUS, CUU #### [facility] [address] [place] [address] [place] Sodium [Moles/Vol] 139 mmol/L Normal 136-[address] [facility] Comment on above: Performed By: #### A DDONUAPLUS, CUU #### [facility] [address] [place] [address] [place] Urea nitrogen [Mass/Vol] 13 mg/dL Normal 7-25 [facility] Comment on above: Performed By: #### A DDONUAPLUS, CUU #### [facility] [address] [place] [address] [place] Basophils Auto (Bld) [#/Vol] Ordered By: Juaquin Mendez on 04-21-2023 Basophils (Bld) [#/Vol] N/A F [facility] Basophils/100 WBC Auto (Bld) Ordered By: Juaquin Mendez on 04-21-2023 Basophils/100 WBC (Bld) N/A [facility] Basophils/100 WBC Manual cnt (Bld)Ordered By: Juaquin Mendez on 04-21-2023 Basophils/100 WBC (Bld) 1 % 0-[address] [facility] Bilirubin Test strip Ql (U)O rdered By: Juaquin Mendez on 04-21-2023 Bilirubin Ql (U) Negative Negative [facility] Bilirubin.direct [Mass/volum e] in Serum or PlasmaOrdered By: Juaquin Mendez on 04-21-2023 Bilirubin.direct [Mass/Vol] 0.10 mg/dL 0.03-0.18 [facility] Bilirubin.total [Mass/volume ] in Serum or PlasmaOrdered By: Juaquin Mendez on 04-21-2023 Bilirubin [Mass/Vol] 0.7 mg/dL 0.3-1.[address] [facility] [address] abdomen pelvis w conon 12 -23-2023 CT abdomen pelvis w con [facility] [place] [address] [place] [address] CT Scan Report Signed Patient: Nathan Martin MR#: [id number] : 1955 Acct:[id number] Age/Sex: 67 / M ADM Date: 04/21/23 Loc: ER Room: Type: [facility] ER Attending Dr: Copies to: Juaquin Mendez DO Ordering Provider: Juaquin Mendez DO Date of Service: 04/21/23 CT/CT abdomen pelvis w con: Abdominal Pain CT ABDOMEN AND PELVIS WITH CONTRAST COMPARISON: 08/02/2021 CLINICAL DATA: Low abdominal pain for the past week. Spiral images were obtained through the abdomen and pelvis following 90 mL Isovue-300. This CT exam was performed using one or more following dose reduction techniques: Automated exposure control, adjustment of the mA and/or kV according to patient size, or use of iterative reconstruction technique. Limited cuts through the lung bases show minor atelectasis or scarring. There is minimal gynecomastia. Fatty infiltration liver is seen. The gallbladder surgically absent. No biliary dilatation is present. The spleen, pancreas and adrenal glands show no acute findings. There are symmetric renal nephrograms, without hydronephrosis. There is a small stone at the renal pelvis on the left measuring 6 mm in greatest dimension. No hydronephrosis is present. No ureteral dilatation or stones are seen. Is atherosclerotic plaque at the aorta and iliac arteries. There are no enlarged lymph nodes or ascites. The tiny umbilical hernia containing fat. No dilated small bowel loops are seen. There is stool at the ascending and transverse colon. The left colon is underdistended. There are some left-sided colonic diverticula. Subtle dextroscoliotic curvature and degenerative changes are present at the spine, greatest at the lower facets. Associated stenosis is again noted. There may be partial laminectomy at L5. There is also degenerative change at the SI joints. Images through the pelvis show no appendiceal inflammation. There are normal caliber small bowel loops. There is air and a small amount of stool at the rectum. The sigmoid colon is underdi stended. There are some additional diverticula, without associated active inflammation. The prostate is mildly prominent and contains calcifications. There is slight mass effect at the bladder trigone. There is a tiny hyperdense focus at the junction of the anterosuperior prostate and the bladder. A tiny bladder stone is not completely excluded. There are benign-appearing inguinal lymph nodes. No ascites is identified. CT/CT abdomen pelvis w con IMPRESSION: FATTY LIVER. LEFT NEPHROLITHIASIS. NO OBSTRUCTIVE UROPATHY. PROSTATE HYPERTROPHY. EQUIVOCAL BLADDER STONE. DIVERTICULOSIS. NO OTHER ACUTE FINDINGS. Impression dictated by: Krissy Iyer M.D.04/21/2023 6:55 PM Dictation Location: [place] [address] Transcribed By: [facility] 04/21/231854 Dictated By: Krissy Iyer MD 04/21/231845 Signed By: 04/21/231854 Normal [facility] Calcium [Mass/volume] in Ser um or PlasmaOrdered By: Juaquin Mendez on 04-21-2023 Calcium [Mass/Vol] 9.7 mg/dL 8.6-10.[address] [facility] Carbon dioxide, total [Moles /volume] in Serum or PlasmaOrdered By: Juaquin Mendez on 04-21-2023 CO2 [Moles/Vol] 24.3 mmol/L 21.0-31.0 [facility] Chloride [Moles/volume] in S prasanth or PlasmaOrdered By: Juaquin Mendez on 04-21-2023 Chloride [Moles/Vol] 109 mmol/L 98-107 [facility] Color Auto (U)Ordered By: Rowdy red Vanessa on 04-21-2023 Color (U) Yellow Yellow [facility] Creatinine [Mass/volume] in Serum or PlasmaOrdered By: Juaquin Mendez on 04-21-2023 Creatinine [Mass/Vol] 0.91 mg/dL 0.70-1.30 [facility] Diff and CBCon 04-21-2023 Basophils/100 WBC (Bld) 1 % Normal 0-[address] [facility] Comment on above: Performed By: #### A JUANIS SAMUELS #### [address] Eosinophils/100 WBC (Bld) 6 % High 1-3 [facility] Comment on above: Performed By: #### A DDONUAPLUS, CUU #### [address] Erythrocyte distribution width (RBC) [Ratio] 14.3 % Normal 12.0-14.8 [facility] Comment on above: Performed By: #### A RISHIUAHALINA, CUU #### [address] Giant Platelet Tally 2 /100{WBC} Normal [facility] Comment on above: Performed By: #### A RISHIUAPLUS, CUU #### [address] Hematocrit (Bld) [Volume fraction] 50.8 % High 38.8-50.0 [facility] Comment on above: Performed By: #### A ARVIND, CUU #### [address] Hemoglobin (Bld) [Mass/Vol] 17.6 g/dL High 13.0-17.0 [facility] Comment on above: Performed By: #### A RISHIUAHALINA, CUU #### [address] Large Platelets Slight Normal [facility] Comment on above: Result Comment: PERF ORMED BY: [place] [address] PATHOLOGIST NEGATIVE ASSEMBLER LAURYN LAGOS M.D. Performed By: #### A ARVIND, CUU #### [address] Lymphocytes/100 WBC (Bld) 18 % Normal 18-42 [facility] Comment on above: Performed By: #### A RISHIUAAHLINA, CUU #### [address] MCH (RBC) [Entitic mass] 31.8 pg Normal 27.5-35.2 [facility] Comment on above: Performed By: #### A ARVIND, CUU #### [place] [id number] [place] MCV (RBC) [Entitic vol] 92.1 fL Normal 83.5-[address] [facility] Comment on above: Performed By: #### A ARVIND, CUU #### [address] Mean Corpuscular HGB Conc 34.6 g/dL Normal 32.5-35.6 [facility] Comment on above: Performed By: #### A ARVIND, CUU #### [address] Monocytes/100 WBC (Bld) 19.78 % Normal 0.00-20.[address] [facility] Comment on above: Result Comment: PERF ORMED BY: [place] [address] PATHOLOGIST NEGATIVE ASSEMBLER LAURYN LAGOS M.D. Performed By: #### A ARVIND CUU #### [address] Monocytes/100 WBC (Bld) 9 % Normal 2-[address] [facility] Comment on above: Performed By: #### A ARVIND CUU #### [address] Platelet Estimate Normal Normal Normal [facility] Comment on above: Performed By: #### A ARVIND, CUU #### [address] Platelet mean volume (Bld) [Entitic vol] 9.5 fL Normal 6.6-10.1 [facility] Comment on above: Performed By: #### A ARVIND, CUU #### [address] Platelet Morphology Normal Normal Normal [facility] Comment on above: Performed By: #### A ARVIND, CUU #### [address] Platelets (Bld) [#/Vol] 209 10*3/uL Normal 150-450 [facility] Comment on above: Performed By: #### A DDONUAPLUS, CUU #### [facility] [facility] [address] RBC (Bld) [#/Vol] 5.51 10*6/uL Normal 3.90-5.60 [facility] Comment on above: Performed By: #### A DDONUAPLUS, CUU #### [address] RBC morphology finding Nom (Bld) Normal Normal Normal [facility] Comment on above: Performed By: #### A DDONUAPLUS, CUU #### [address] Reactive Lymphocytes 4 % Normal 0-12 [facility] Comment on above: Performed By: #### A DDONUAPLUS, CUU #### [address] Segmented neutrophils/100 WBC (Bld) 63 % Normal 50-70 [facility] Comment on above: Performed By: #### A DDONUAPLUS, CUU #### [address] WBC (Bld) [#/Vol] 6.8 10*3/uL Normal 4.1-10.[address] [facility] Comment on above: Performed By: #### A DDONUAPLUS, CUU #### [place] [address] [place] Dipstick and Microscopicon 1 06-22-2022 Appearance (U) Clear Normal Clear [facility] Comment on above: Order Comment: Name Collection Type:: Clean-Voided Midstream Performed By: #### A DDONUAPLUS, CUU #### [place] [address] [place] Bacteria,Urine None Seen Normal None Seen [facility] Comment on above: Order Comment: Name Collection Type:: Clean-Voided Midstream Performed By: #### A DDONUAPLUS, CUU #### [place] [id number] [place] Bilirubin,Urine Negative Normal Negative [facility] Comment on above: Order Comment: Name Collection Type:: Clean-Voided Midstream Performed By: #### A DDONUAPLUS, CUU #### [facility] [address] [place] [address] [place] Color (U) Yellow Normal Yellow [facility] Comment on above: Order Comment: Name Collection Type:: Clean-Voided Midstream Performed By: #### A DDONUAPLUS, CUU #### [place] [address] [place] Glucose Ql (U) Normal Normal Normal [facility] Comment on above: Order Comment: Name Collection Type:: Clean-Voided Midstream Performed By: #### A DDONUAPLUS, CUU #### [place] [address] [place] Hyaline Casts,Urine 0-8 Normal 0-8 [facility] Comment on above: Order Comment: Name Collection Type:: Clean-Voided Midstream Result Comment: PERF ORMED BY: [place] [address] PATHOLOGIST NEGATIVE ASSEMBLER LAURYN LAGOS M.D. Performed By: #### A DDONUAPLUS, CUU #### [address] Ketones Ql (U) Negative Normal Negative [facility] Comment on above: Order Comment: Name Collection Type:: Clean-Voided Midstream Performed By: #### A DDONUAPLUS, CUU #### [facility] [address] [place] [address] [place] Leukocyte esterase Test strip Ql (U) 3+ High Negative [facility] Comment on above: Order Comment: Name Collection Type:: Clean-Voided Midstream Performed By: #### A DDONUAPLUS, CUU #### [place] [address] [place] Nitrite,Urine Positive High Negative [facility] Comment on above: Order Comment: Name Collection Type:: Clean-Voided Midstream Performed By: #### A DDONUAPLUS, CUU #### [address] Occult Blood,Urine Trace High Negative [facility] Comment on above: Order Comment: Name Collection Type:: Clean-Voided Midstream Result Comment: PERF ORMED BY: [place] [address] PATHOLOGIST NEGATIVE ASSEMBLER LAURYN LAGOS M.D. Performed By: #### A DDONUAPLUS, CUU #### [address] pH (U) 6.0 [pH] Normal 5.0-9.0 [facility] Comment on above: Order Comment: Name Collection Type:: Clean-Voided Midstream Performed By: #### A DDONUAPLUS, CUU #### [address] Protein,Urine Negative Normal Negative [facility] Comment on above: Order Comment: Name Collection Type:: Clean-Voided Midstream Performed By: #### A DDONUAPLUS, CUU #### [address] RBC,Urine 5-9 High 0-4 [facility] Comment on above: Order Comment: Name Collection Type:: Clean-Voided Midstream Performed By: #### A DDONUAPLUS, CUU #### [address] Specificy [place],Urine 1.021 Normal 1.00 1-1.03 0 [facility] Comment on above: Order Comment: Name Collection Type:: Clean-Voided Midstream Performed By: #### A DDONUAPLUS, CUU #### [place] [address] [place] Squamous Epithelial Cell,Urine None Seen Normal 0-2 [facility] Comment on above: Order Comment: Name Collection Type:: Clean-Voided Midstream Performed By: #### A DDONUAPLUS, CUU #### [address] Urobilinogen,Urine Normal Normal Normal [facility] Comment on above: Order Comment: Name Collection Type:: Clean-Voided Midstream Performed By: #### A DDONUAPLUS, CUU #### [facility] [address] [place] [address] [place] WBC,Urine 20-49 High 0-4 [facility] Comment on above: Order Comment: Name Collection Type:: Clean-Voided Midstream Performed By: #### A DDONUAPLUS, CUU #### [facility] [address] Eosinophils Auto (Bld) [#/Vo l]Ordered By: Juaquin Mendez on 04-21-2023 Eosinophils (Bld) [#/Vol] N/A [facility] Eosinophils/100 WBC Auto (Bl d)Ordered By: Juaquin Mendez on 04-21-2023 Eosinophils/100 WBC (Bld) N/A [facility] Eosinophils/100 WBC Manual c nt (Bld)Ordered By: Juaquin Mendez on 04-21-2023 Eosinophils/100 WBC (Bld) 6 % 1-3 [facility] Erythrocyte distribution wid th Auto (RBC) [Ratio]Ordered By: Juaquin Mendez on 04-21-2023 Erythrocyte distribution width (RBC) [Ratio] 14.3 % 12.0-14.8 [facility] Giant platelets/100 leukocyt es [Ratio] in Blood by Manual countOrdered By: Juaquin Mendez on 04-21-2023 Giant platelets/100 WBC Manual cnt (Bld) [Ratio] 2 /100{WBC} [facility] Globulin Calc (S) [Mass/Vol] Ordered By: Juaquin Mendez on 04-21-2023 Globulin (S) [Mass/Vol] 2.9 g/dL [facility] Glucose [Mass/volume] in Ser um or PlasmaOrdered By: Juaquin Mendez on 04-21-2023 Glucose [Mass/Vol] 92 mg/dL 70-[address] [facility] Comment on above: ADA recommended refe rence rangeRandom Glucose Reference Range is dependent on time and content of last meal. Glucose of more than 200 mg/dL in a nonstressed, ambulatory subject supports the diagnosis of Diabetes Mellitus. Hematocrit Auto (Bld) [Volum e fraction]Ordered By: Juaquin Mendez on 04-21-2023 Hematocrit (Bld) [Volume fraction] 50.8 % 38.8-50.0 [facility] Hemoglobin [Mass/volume] in BloodOrdered By: Juaquin Mendez on 04-21-2023 Hemoglobin (Bld) [Mass/Vol] 17.6 g/dL 13.0-17.0 [facility] Hepatic Panelon 04-21-2023 Albumin [Mass/Vol] 4.4 g/dL Normal 3.5-5.[address] [facility] Comment on above: Performed By: #### A RISHIUAHALINA CUU #### [facility] [address] [place] [address] Albumin/Globulin [Mass ratio] 1.5 {ratio} Normal [facility] Comment on above: Performed By: #### A RISHIUAHALINA, CUU #### [facility] [address] [place] [address] ALP [Catalytic activity/Vol] 34 U/L Normal 34-104 [facility] Comment on above: Performed By: #### A DDALICIAUAPLUS, CUU #### [facility] [address] [place] [address] ALT [Catalytic activity/Vol] 30 U/L Normal 7-52 [facility] Comment on above: Performed By: #### A DDALICIAUAPLUS, CUU #### [facility] [address] [place] [address] [place] Aspartate Amino Transferase Normal 13-39 [facility] Comment on above: Result Comment: Spec imen hemolyzed, redraw requested Performed By: #### A DDONUAPLUS, CUU #### [facility] [address] [place] [address] [place] Bilirubin [Mass/Vol] 0.7 mg/dL Normal 0.3-1.0 [facility] Comment on above: Performed By: #### A DDONUAPLUS, CUU #### [facility] [address] [place] [address] [place] Bilirubin,Direct Normal 0.03-0.18 [facility] Comment on above: Result Comment: Spec imen hemolyzed, redraw requested Performed By: #### A DDONUAPLUS, CUU #### [address] Bilirubin,Indirect Not performed Normal [facility] Comment on above: Performed By: #### A DDONUAPLUS, CUU #### [facility] [address] Globulin (S) [Mass/Vol] 2.9 g/dL Normal [facility] Comment on above: Performed By: #### A DDONUAPLUS, CUU #### [address] Protein [Mass/Vol] 7.3 g/dL Normal 6.4-8.[address] [facility] Comment on above: Performed By: #### A RISHIUAPLUS, CUU #### [address] Ketones Auto test strip (U) [Mass/Vol]Ordered By: Juaquin Mendez on 04-21-2023 Ketones (U) [Mass/Vol] Negative Negative [facility] Laboratory - UrinalysisOrder ed By: Juaquin Mendez on 04-21-2023 Hyaline casts LM Ql (Urine sed) 0-8 [LPF] 0-8 [facility] Leukocytes [#/volume] correc emperatriz for nucleated erythrocytes in Blood by Automated counOrdered By: Juaquin Mendez on 04-21-2023 WBC corrected for nucl RBC Auto (Bld) [#/Vol] 6.8 10*3/uL 4.1-10.5 [facility] Lipaseon 04-21-2023 Lipase [Catalytic activity/Vol] 35.0 U/L Normal 11.0-82.0 [facility] Comment on above: Result Comment: PERF ORMED BY: [place] [address] PATHOLOGIST NEGATIVE ASSEMBLER LAURYN LAGOS M.D. Performed By: #### A DDONUAPLUS, CUU #### [facility] [address] Lipase [Enzymatic activity/v olume] in Serum or PlasmaOrdered By: Juaquin Mendez on 04-21-2023 Lipase [Catalytic activity/Vol] 35.0 U/L 11.0-82.0 [facility] Lymphocytes Auto (Bld) [#/Vo l]Ordered By: Juaquin Mendez on 04-21-2023 Lymphocytes (Bld) [#/Vol] N/A [facility] Lymphocytes/100 WBC Auto (Bl d)Ordered By: Juaquin Mendez on 04-21-2023 Lymphocytes/100 WBC (Bld) N/A [facility] Lymphocytes/100 WBC Manual c nt (Bld)Ordered By: Juaquin Mendez on 04-21-2023 Lymphocytes/100 WBC (Bld) 18 % 18-42 [facility] MCH Auto (RBC) [Entitic mass ]Ordered By: Juaquin Mendez on 04-21-2023 MCH (RBC) [Entitic mass] 31.8 pg 27.5-35.2 [facility] MCHC Auto (RBC) [Mass/Vol]Or dered By: Juaquin Mendez on 04-21-2023 MCHC (RBC) [Mass/Vol] 34.6 g/dL 32.5-35.6 [facility] MCV Auto (RBC) [Entitic vol] Ordered By: Juaquin Mendez on 04-21-2023 MCV (RBC) [Entitic vol] 92.1 fL 83.5-[address] [facility] Monocyte distribution width [Entitic volume] in Blood by AutomatedOrdered By: Juaquin Mendez on 04-21-2023 Monocyte distribution width Auto (Bld) [Entitic vol] 19.78 % 0.00-20.00 [facility] Monocytes Auto (Bld) [#/Vol] Ordered By: Juaquin Mendez on 04-21-2023 Monocytes (Bld) [#/Vol] N/A [facility] Monocytes/100 WBC Auto (Bld) Ordered By: Juaquin Mendez on 04-21-2023 Monocytes/100 WBC (Bld) N/A [facility] Monocytes/100 WBC Manual cnt (Bld)Ordered By: Juaquin Mendez on 04-21-2023 Monocytes/100 WBC (Bld) 9 % 2-[address] [facility] Neutrophils Auto (Bld) [#/Vo l]Ordered By: Juaquin Mendez on 04-21-2023 Neutrophils (Bld) [#/Vol] N/A [facility] Neutrophils/100 WBC Auto (Bl d)Ordered By: Juaquin Mendez on 04-21-2023 Neutrophils/100 WBC (Bld) N/A [facility] Nitrite Test strip Ql (U)Ord ered By: Juaquin Mendez on 04-21-2023 Nitrite Ql (U) Positive Negative [facility] No Panel InformationOrdered By: Juaquin Mendez on 04-21-2023 Estimated GFR (CKD-EPI) > 60.0 mL/Min [facility] Creatinine Clearance (Chem 82.34 [facility] Nucleated erythrocytes [Pres ence] in Blood by Automated countOrdered By: Juaquin Mendez on 04-21-2023 Nucleated RBC Auto Ql (Bld) N/A [facility] Platelet adequacy [Presence] in Blood by Light microscopyOrdered By: Juaquin Mendez on 04-21-2023 Platelets LM Ql (Bld) Normal Normal [facility] Platelet mean volume Auto (B ld) [Entitic vol]Ordered By: Juaquin Mendez on 04-21-2023 Platelet mean volume (Bld) [Entitic vol] 9.5 fL 6.6-10.1 [facility] Platelet morphology finding [Identifier] in BloodOrdered By: Juaquin Mendez on 04-21-2023 Platelet morphology finding Nom (Bld) Normal Normal [facility] Platelets Auto (Bld) [#/Vol] Ordered By: Juaquin Mendez on 04-21-2023 Platelets (Bld) [#/Vol] 209 10*3/uL 150-450 [facility] Platelets Large [Presence] i n Blood by Light microscopyOrdered By: Juaquin Mendez on 04-21-2023 Platelets Large LM Ql (Bld) Slight [facility] Potassium [Moles/volume] in Serum or PlasmaOrdered By: Juaquin Mendez on 04-21-2023 Potassium [Moles/Vol] 4.2 mmol/L 3.5-5.1 [facility] Protein Auto test strip (U) [Mass/Vol]Ordered By: Juaquin Mendez on 04-21-2023 Protein (U) [Mass/Vol] Negative Negative [facility] Protein [Mass/volume] in Ser um or PlasmaOrdered By: Juaquin Mendez on 04-21-2023 Protein [Mass/Vol] 7.3 g/dL 6.4-8.[address] [facility] RBC Auto (Bld) [#/Vol]Ordere d By: Juaquin Mendez on 04-21-2023 RBC (Bld) [#/Vol] 5.51 10*6/uL 3.90-5.60 [facility] RBC morphologyOrdered By: Rowdy Mendez on 04-21-2023 RBC morphology finding Nom (Bld) Normal Normal [facility] Redraw Herman 04-21-2023 AST [Catalytic activity/Vol] 22 U/L Normal 13-39 [facility] Comment on above: Order Comment: Previ ous specimen was hemolyzed, notified Adriana (ED); redraw requested.-JJ Result Comment: PERF ORMED BY: [place] [address] PATHOLOGIST NEGATIVE ASSEMBLER LAURYN LAGOS M.D. Performed By: #### A ARVIND CUU #### [facility] [address] [place] [address] Redraw Bilirubin,Directon Redraw Bilirubin,Direct 0.10 mg/dL Normal 0.03-0.18 [facility] Comment on above: Order Comment: Name Collection Type:: Clean-Voided Midstream Performed By: #### A ARVIND CUU #### [facility] [address] [place] [address] Redraw Potassiumon Potassium [Moles/Vol] 4.2 mmol/L Normal 3.5-5.1 [facility] Comment on above: Order Comment: Name Collection Type:: Clean-Voided Midstream Performed By: #### A DDONUAHALINA, CUU #### [facility] [address] Segmented neutrophils/100 WB C Manual cnt (Bld)Ordered By: Juaquin Mendez on 04-21-2023 Segmented neutrophils/100 WBC (Bld) 63 % 50-70 [facility] Serum or plasma albumin/glob ulin mass ratioOrdered By: Juaquin Mendez on 04-21-2023 Albumin/Globulin [Mass ratio] 1.5 {ratio} [facility] Serum or plasma anion gap de terminationOrdered By: Juaquin Mendez on 04-21-2023 Anion gap [Moles/Vol] TNP [facility] Comment on above: Test not performed Serum or plasma non-glucuron idated bilirubin measurement (mass/volume)Ordered By: Juaquin Mendez on 04-21-2023 Bilirubin.indirect [Mass/Vol] TNP [facility] Comment on above: Test not performed Sodium [Moles/volume] in Ser um or PlasmaOrdered By: Juaquin Mendez on 04-21-2023 Sodium [Moles/Vol] 139 mmol/L 136-[address] [facility] Specific gravity Auto test s trip (U) [Rel density]Ordered By: Juaquin Mendez on 04-21-2023 Specific gravity (U) [Rel density] 1.021 1.001-1.03 0 [facility] Squamous epithelial cells de tection in urine sediment by light microscopyOrdered By: Juaquin Mendez on 04-21-2023 Epithelial cells.squamous LM Ql (Urine sed) None seen [HPF] 0-2 [facility] Urea nitrogen [Mass/volume] in Serum or PlasmaOrdered By: Juaquin Mendez on 04-21-2023 Urea nitrogen [Mass/Vol] 13 mg/dL 7-25 [facility] Urine Cultureon 04-21-2023 Bacteria identified Cx Nom (U) 75,000 colonies/ml mixed bacterial skin contaminants 2 Days PERFORMED BY: [facility] [address] [place] [address] PATHOLOGIST NEGATIVE ASSEMBLER LAURYN LAGOS M.D. Normal [facility] Comment on above: Performed By: #### A HALONUAPLUS, CUU #### [facility] [address] Urine bacteria detection by automated methodOrdered By: Juaquin Mendez on 04-21-2023 Bacteria Auto Ql (U) None seen None Seen [facility] Urine clarity by refractomet ry automatedOrdered By: Juaquin Mendez on 04-21-2023 Clarity Refractometry automated (U) Clear Clear [facility] Urine culture routineOrdered By: Juaquin Mendez on 04-21-2023 Bacteria identified Cx Nom (U) 2 Days [facility] Bacteria identified Cx Nom (U) 2 Days [facility] Urine glucose measurement by automated test strip (mass/volume)Ordered By: Juaquin Mendez on 04-21-2023 Glucose Auto test strip (U) [Mass/Vol] Normal mg/dL Normal [facility] Urine hemoglobin detection b y automated test stripOrdered By: Juaquin Mendez on 04-21-2023 Hemoglobin Auto test strip Ql (U) Trace Negative [facility] Urine leukocyte esterase det ection by automated test stripOrdered By: Juaquin Mendez on 04-21-2023 Leukocyte esterase Auto test strip Ql (U) 3+ Negative [facility] Urobilinogen Auto test strip (U) [Mass/Vol]Ordered By: Juaquin Mendez on 04-21-2023 Urobilinogen (U) [Mass/Vol] Normal mg/dL Normal [facility] Variant lymphocytes/100 WBC Manual cnt (Bld)Ordered By: Juaquin Mendez on 04-21-2023 Variant lymphocytes/100 WBC (Bld) 4 % 0-12 [facility] WBC Auto (Bld) [#/Vol]Ordere d By: Juaquin Mendez on 04-21-2023 WBC (Bld) [#/Vol] 6.8 10*3/uL 4.1-10.[address] [facility] pH Auto test strip (U)Ordere d By: Juaquin Mendez on 04-21-2023 pH (U) 6.0 [pH] 5.0-9.0 [facility] Consultation Noteon 02-17-20 Consultation Note [id number] Normal [facility] Basophils Auto (Bld) [#/Vol] Ordered By: Che De Leon on 02-06-2023 Basophils (Bld) [#/Vol] 0.1 10*3/uL 0.0-0.2 [facility] Basophils/100 WBC Auto (Bld) Ordered By: Che De Leon on 02-06-2023 Basophils/100 WBC (Bld) 1.3 % . F [facility] Complete Blood Count Auto Di ffon 02-06-2023 Basophils (Bld) [#/Vol] 0.1 10*3/uL Normal 0.0-0.2 [facility] Comment on above: Result Comment: PERF ORMED BY: [place] [address] PATHOLOGIST NEGATIVE ASSEMBLER LAURYN LAGOS M.D. Performed By: #### F ER, FE and TIBC, CBC #### [address] Basophils/100 WBC (Bld) 1.3 % Normal . [facility] Comment on above: Performed By: #### F ER, FE and TIBC, CBC #### [facility] [address] [place] [address] Eosinophils (Bld) [#/Vol] 0.2 10*3/uL Normal 0.0-0.45 [facility] Comment on above: Performed By: #### F ER, FE and TIBC, CBC #### [place] [address] [place] Eosinophils/100 WBC (Bld) 3.2 % Normal . [facility] Comment on above: Performed By: #### F ER, FE and TIBC, CBC #### [facility] [address] [place] [address] Erythrocyte distribution width (RBC) [Ratio] 15.1 % High 12.0-14.8 [facility] Comment on above: Performed By: #### F ER, FE and TIBC, CBC #### [place] [address] Hematocrit (Bld) [Volume fraction] 48.7 % Normal 38.8-50.0 [facility] Comment on above: Performed By: #### F ER, FE and TIBC, CBC #### [facility] [address] Hemoglobin (Bld) [Mass/Vol] 16.8 g/dL Normal 13.0-17.0 [facility] Comment on above: Performed By: #### F ER, FE and TIBC, CBC #### [address] Lymphocytes (Bld) [#/Vol] 1.5 10*3/uL Normal 1.00-4.8 [facility] Comment on above: Performed By: #### F ER, FE and TIBC, CBC #### [address] Lymphocytes/100 WBC (Bld) 23.2 % Normal . [facility] Comment on above: Performed By: #### F ER, FE and TIBC, CBC #### [address] MCH (RBC) [Entitic mass] 31.2 pg Normal 27.5-35.2 [facility] Comment on above: Performed By: #### F ER, FE and TIBC, CBC #### [address] MCV (RBC) [Entitic vol] 90.6 fL Normal 83.5-101 [facility] Comment on above: Performed By: #### F ER, FE and TIBC, CBC #### [address] Mean Corpuscular HGB Conc 34.4 g/dL Normal 32.5-35.6 [facility] Comment on above: Performed By: #### F ER, FE and TIBC, CBC #### [address] Monocytes (Bld) [#/Vol] 0.5 10*3/uL Normal 0.0-0.8 [facility] Comment on above: Performed By: #### F ER, FE and TIBC, CBC #### [address] Monocytes/100 WBC (Bld) 7.8 % Normal . F [facility] Comment on above: Performed By: #### F ER, FE and TIBC, CBC #### [address] Neutrophils (Bld) [#/Vol] 4.2 10*3/uL Normal 1.8-7.7 [facility] Comment on above: Performed By: #### F ER, FE and TIBC, CBC #### [address] Neutrophils/100 WBC (Bld) 64.5 % Normal . [facility] Comment on above: Performed By: #### F ER, FE and TIBC, CBC #### [address] NRBC% 0.2 /100{WBC} Normal 0-0.5 [facility] Comment on above: Performed By: #### F ER, FE and TIBC, CBC #### [address] Platelet mean volume (Bld) [Entitic vol] 9.4 fL Normal 6.6-10.1 [facility] Comment on above: Performed By: #### F ER, FE and TIBC, CBC #### [address] Platelets (Bld) [#/Vol] 171 10*3/uL Normal 150-450 [facility] Comment on above: Performed By: #### F ER, FE and TIBC, CBC #### [address] RBC (Bld) [#/Vol] 5.38 10*6/uL Normal 3.90-5.60 [facility] Comment on above: Performed By: #### F ER, FE and TIBC, CBC #### [facility] [address] WBC (Bld) [#/Vol] 6.5 10*3/uL Normal 4.1-10.[address] [facility] Comment on above: Performed By: #### F ER, FE and TIBC, CBC #### [facility] [address] Eosinophils Auto (Bld) [#/Vo l]Ordered By: Che De Leon on 02-06-2023 Eosinophils (Bld) [#/Vol] 0.2 10*3/uL 0.0-0.45 [facility] Eosinophils/100 WBC Auto (Bl d)Ordered By: Che De Leon on 02-06-2023 Eosinophils/100 WBC (Bld) 3.2 % . [facility] Erythrocyte distribution wid th Auto (RBC) [Ratio]Ordered By: Che De Leon on 02-06-2023 Erythrocyte distribution width (RBC) [Ratio] 15.1 % 12.0-14.8 [facility] Ferritinon 02-06-2023 Ferritin [Mass/Vol] 23.8 ng/mL Low 23.9-336.2 [facility] Comment on above: Result Comment: PERF ORMED BY: [place] [address] PATHOLOGIST NEGATIVE ASSEMBLER LAURYN LAGOS M.D. Performed By: #### F ER, FE and TIBC, CBC #### [facility] [address] [place] [address] Ferritin [Mass/volume] in Se rum or PlasmaOrdered By: Che De Leon on 02-06-2023 Ferritin [Mass/Vol] 23.8 ng/mL 23.9-336.2 [facility] Hematocrit Auto (Bld) [Volum e fraction]Ordered By: Che De Leon on 02-06-2023 Hematocrit (Bld) [Volume fraction] 48.7 % 38.8-50.0 [facility] Hemoglobin [Mass/volume] in BloodOrdered By: Che De Leon on 02-06-2023 Hemoglobin (Bld) [Mass/Vol] 16.8 g/dL 13.0-17.0 [facility] Iron [Mass/volume] in Serum or PlasmaOrdered By: Che De Leon on 02-06-2023 Iron [Mass/Vol] 107 ug/dL 50-212 [facility] Iron and TIBC Profileon 01-28 0-202 % Iron Saturation 29.6 % Normal 20-50 [facility] Comment on above: Performed By: #### F ER, FE and TIBC, CBC #### [facility] [address] [place], [place] [address] Iron [Mass/Vol] 107 ug/dL Normal 50-212 [facility] Comment on above: Performed By: #### F ER, FE and TIBC, CBC #### [facility] [address] Total Iron Binding Capacity 361 ug/dL Normal 255-450 [facility] Comment on above: Performed By: #### F ER, FE and TIBC, CBC #### [facility] [address] [place] [address] [place] Transferrin [Mass/Vol] 258 mg/dL Normal 203-362 [facility] Comment on above: Performed By: #### F ER, FE and TIBC, CBC #### [facility] [address] [place] [address] [place] Iron binding capacity [Mass/ volume] in Serum or PlasmaOrdered By: Che De Leon on 02-06-2023 Iron binding capacity [Mass/Vol] 361 ug/dL 255-450 [facility] Iron saturation [Mass Fracti on] in Serum or PlasmaOrdered By: Che De Leon on 02-06-2023 Iron saturation [Mass fraction] 29.6 % 20-50 [facility] Leukocytes [#/volume] correc emperatriz for nucleated erythrocytes in Blood by Automated counOrdered By: Che De Leon on 02-06-2023 WBC corrected for nucl RBC Auto (Bld) [#/Vol] 6.5 10*3/uL 4.1-10.5 [facility] Lymphocytes Auto (Bld) [#/Vo l]Ordered By: Che De Leon on 02-06-2023 Lymphocytes (Bld) [#/Vol] 1.5 10*3/uL 1.00-4.8 [facility] Lymphocytes/100 WBC Auto (Bl d)Ordered By: Che De Leon on 02-06-2023 Lymphocytes/100 WBC (Bld) 23.2 % . [facility] MCH Auto (RBC) [Entitic mass ]Ordered By: Che De Leon on 02-06-2023 MCH (RBC) [Entitic mass] 31.2 pg 27.5-35.2 [facility] MCHC Auto (RBC) [Mass/Vol]Or dered By: Che De Leon on 02-06-2023 MCHC (RBC) [Mass/Vol] 34.4 g/dL 32.5-35.6 [facility] MCV Auto (RBC) [Entitic vol] Ordered By: Che De Leon on 02-06-2023 MCV (RBC) [Entitic vol] 90.6 fL 83.5-[address] [facility] Monocytes Auto (Bld) [#/Vol] Ordered By: Che De Leon on 02-06-2023 Monocytes (Bld) [#/Vol] 0.5 10*3/uL 0.0-0.8 [facility] Monocytes/100 WBC Auto (Bld) Ordered By: Che De Leon on 02-06-2023 Monocytes/100 WBC (Bld) 7.8 % . [facility] Neutrophils Auto (Bld) [#/Vo l]Ordered By: Che De Leon on 02-06-2023 Neutrophils (Bld) [#/Vol] 4.2 10*3/uL 1.8-7.7 [facility] Neutrophils/100 WBC Auto (Bl d)Ordered By: Che De Leon on 02-06-2023 Neutrophils/100 WBC (Bld) 64.5 % . [facility] Nucleated erythrocytes [Pres ence] in Blood by Automated countOrdered By: Che De Leon on 02-06-2023 Nucleated RBC Auto Ql (Bld) 0.2 /100{WBC} 0-0.5 [facility] Platelet mean volume Auto (B ld) [Entitic vol]Ordered By: Che De Leon on 02-06-2023 Platelet mean volume (Bld) [Entitic vol] 9.4 fL 6.6-10.1 [facility] Platelets Auto (Bld) [#/Vol] Ordered By: Che De Leon on 02-06-2023 Platelets (Bld) [#/Vol] 171 10*3/uL 150-450 [facility] RBC Auto (Bld) [#/Vol]Ordere d By: Che De Leon on 02-06-2023 RBC (Bld) [#/Vol] 5.38 10*6/uL 3.90-5.60 [facility] Transferrin [Mass/volume] in Serum or PlasmaOrdered By: Che De Leon on 02-06-2023 Transferrin [Mass/Vol] 258 mg/dL 203-362 [facility] WBC Auto (Bld) [#/Vol]Ordere d By: Che De Leon on 02-06-2023 WBC (Bld) [#/Vol] 6.5 10*3/uL 4.1-10.[address] [facility] Ambulatory Visit Summaryon 0 11-22-2022 Ambulatory Visit Summary MARTINNATHAN :1955 Visit Date:11/22/2022 Ambulatory Visit Instructions Your Diagnosis BPH with obstruction/lower urinary tract symptoms Kidney stones UTI (urinary tract infection) Tests Performed Urnls Dip Stick Auto w/o Microscopy POC 06089 XR Abdomen 1 View -- Results Pending -- Please visit your patient portal for your results or contact your primary care physician. Your Care Team Attending Physician - VERNA LA, Edward Worrell Primary Care Physician - [facility], . This Is Your Medications List tamsulosin (tamsulosin 0.4 mg Cap) Contact prescribing physician if questions or concerns aspirin atorvastatin (atorvastatin 40 mg Tab) lisinopril (lisinopril 40 mg Tab) metformin (metformin 500 mg Tab) naproxen (naproxen 500 mg Tab) omeprazole (omeprazole 40 mg Cap-DR) Procedures Performed Cystoscopic removal of ureteric stent (08/23/2021), Cystoscopic insertion of ureteric stent (08/02/2021), TURP - Transurethral resection of prostate (02/17/2021), Cystoscope (01/11/2021), Cystoscopy (08/12/2019), CE - Cataract extraction, Cholecystectomy, Colonoscopy, Cystoscopy, Cystoscopy, Hemorrhoidectomy, Open repair of inguinal hernia. Discharge Vitals Heart Rate (Peripheral) 86 Respiratory Rate 83 Blood Pressure 89/56 Height 69 in Height 174 cm Weight 174.9 lb Weight 79.5 kg BMI 26.26 What to do next Scheduled Follow-Up Appointments Sunday 10:45 AM EST With: VERNA LA, Edward Worrell Where: [facility] Lab Reportson 11-22-2022 Lab Reports [id number]:127 [facility] Patient Educationon 11-23-19 Patient Education Urology Benign Prostatic Hyperplasia Benign prostatic hyperplasia (BPH) is an enlarged prostate gland that is caused by the normal aging process. The prostate may get bigger as a man gets older. The condition is not caused by cancer. The prostate is a walnut-sized gland that is involved in the production of semen. It is located in front of the rectum and below the bladder. The bladder stores urine. The urethra carries stored urine out of the body. An enlarged prostate can press on the urethra. This can make it harder to pass urine. The buildup of urine in the bladder can cause infection. Back pressure and infection may progress to bladder damage and kidney (renal) failure. What are the causes? This condition is part of the normal aging process. However, not all men develop problems from this condition. If the prostate enlarges away from the urethra, urine flow will not be blocked. If it enlarges toward the urethra and compresses it, there will be problems passing urine. What increases the risk? This condition is more likely to develop in men older than 50 years. What are the signs or symptoms? Symptoms of this condition include: ? Getting up often during the night to urinate. ? Needing to urinate frequently during the day. ? Difficulty starting urine flow. ? Decrease in size and strength of your urine stream. ? Leaking (dribbling) after urinating. ? Inability to pass urine. This needs immediate treatment. ? Inability to completely empty your bladder. ? Pain when you pass urine. This is more common if there is also an infection. ? Urinary tract infection (UTI). How is this diagnosed? This condition is diagnosed based on your medical history, a physical exam, and your symptoms. Tests will also be done, such as: ? A post-void bladder scan. This measures any amount of urine that may remain in your bladder after you finish urinating. ? A digital rectal exam. In a rectal exam, your health care provider checks your prostate by putting a lubricated, gloved finger into your rectum to feel the back of your prostate gland. This exam detects the size of your gland and any abnormal lumps or growths. ? An exam of your urine (urinalysis). ? A prostate specific antigen (PSA) screening. This is a blood test used to screen for prostate cancer. ? An ultrasound. This test uses sound waves to electronically produce a picture of your prostate gland. Your health care provider may refer you to a specialist in kidney and prostate diseases (urologist). How is this treated? Once symptoms begin, your health care provider will monitor your condition (active surveillance or watchful waiting). Treatment for this condition will depend on the severity of your condition. Treatment may include: ? Observation and yearly exams. This may be the only treatment needed if your condition and symptoms are mild. ? Medicines to relieve your symptoms, including: ? Medicines to shrink the prostate. ? Medicines to relax the muscle of the prostate. ? Surgery in severe cases. Surgery may include: ? Prostatectomy. In this procedure, the prostate tissue is removed completely through an open incision or with a laparoscope or robotics. ? Transurethral resection of the prostate (TURP). In this procedure, a tool is inserted through the opening at the tip of the penis (urethra). It is used to cut away tissue of the inner core of the prostate. The pieces are removed through the same opening of the penis. This removes the blockage. ? Transurethral incision (TUIP). In this procedure, small cuts are made in the prostate. This lessens the prostate's pressure on the urethra. ? Transurethral microwave thermotherapy (TUMT). This procedure uses microwaves to create heat. The heat destroys and removes a small amount of prostate tissue. ? Transurethral needle ablation (TUNA). This procedure uses radio frequencies to destroy and remove a small amount of prostate tissue. ? Interstitial laser coagulation (ILC). This procedure uses a laser to destroy and remove a small amount of prostate tissue. ? Transurethral electrovaporization (TUVP). This procedure uses electrodes to destroy and remove a small amount of prostate tissue. ? Prostatic urethral lift. This procedure inserts an implant to push the lobes of the prostate away from the urethra. Follow these instructions at home: ? Take hxyt-lff-tzhenop and prescription medicines only as told by your health care provider. ? Monitor your symptoms for any changes. Contact your health care provider with any changes. ? Avoid drinking large amounts of liquid before going to bed or out in public. ? Avoid or reduce how much caffeine or alcohol you drink. ? Give yourself time when you urinate. ? Keep all follow-up visits. This is important. Contact a health care provider if: ? You have unexplained back pain. ? Your symptoms do not get better with treatment. ? You develop side effects from the medicine (more content not included)... Normal [facility] Urology Office/Clinic Noteon 11-22-2022 Urology Office/Clinic Note Chief Complaint 2 month follow up HPI Staff 67 yo male here for 2 month f/u with KUB and PSA. Previous DX: BPH w/ obstruction/LUTS, kidney stones, UTI. S/p TURP 02/17/21. KUB 11/03/22 showed calcification projecting near capsule of left kidney superiorly measuring 4mm, calcification projecting in the midpole region on that side measuring 5mm that may be a stone, no right renal calculi. Current PSA 3.040 done 11/21/22, previous PSA 3.440 done 03/16/22. Dysuria: denies pain or burning Incomplete bladder emptying: denies Hematuria: denies visible blood Frequency: depends on fluid intake, no longer drinking carbonated beverages Urgency: denies Nocturia: denies Stream: sometimes has hesitancy, denies weak stream, denies start/stop stream Leaking: denies Post void dripping: sometimes Wearing pads/ Depends: yes wears depends only when needed Urge incontinence: denies Stress incontinence: denies Incontinence without Sensory Awareness: denies Abdominal pain: denies Flank pain: denies Sexual complaints: denies History of Present Illness Tests reviewed: reviewed UA, KUB, PSA I have reviewed the previous health record information and history for this patient from Dr. Calloway. I have reviewed and verified the staff HPI to be accurate for this encounter. There have been no associated fever, chills, flank pain, or blood in the urine. Denies any urinary infections since last encounter. Review of Systems PHQ Score Initial Depression Screen Score: 0 ROS - Provider Constitutional: denies weight loss, denies hot flashes. Eyes: denies eye problems. Gastrointestinal: denies nausea, denies vomiting. Cardiovascular: denies chest pain or angina. Integumentary: no dryness Musculoskeletal: denies musculoskeletal symptoms. ENMT: denies otolaryngeal symptoms. Respiratory: no shortness of breath. Heme/Lymph: denies easy bleeding tendency, denies easy bruising tendency. Psychiatric: no confusion, no anxiety. Genitourinary: See HPI. Physical Exam Vitals & Measurements HR: 86(Peripheral) RR: 83 BP: 89/56 HT: 69 in HT: 174 cm WT: 79.5 kg WT: 174.9 lb BMI: 26.26 General Appearance: alert, no distress, well nourished, well developed male. Genitourinary: normal scrotum, normal testes, normal urethra, normal epididymis, normal vas deferens/spermatic cord. Flank Pain: none. Bladder: nonpalpable. Assessment/Plan 1. BPH with obstruction/lower urinary tract symptoms (N40.1: Benign prostatic hyperplasia with lower urinary tract symptoms) S/p TURP done 02/17/21. PSA 03/06/22 - 3.440 11/21/22 - 3.040 Pt is currently taking Tamsulosin 0.4mg BID. Refill sent today. Pt states he gets up q30min at night. Pt states he stopped drinking pop which has helped. Advised pt to limit fluids 2-3hrs prior to bedtime. All questions/concerns were discussed. Pt to call the office if he encounters any issues prior. Pt acknowledges understanding. 2. Kidney stones (N20.0: Calculus of kidney) KUB done 02/13/22 showed 3 mm left inferior pole kidney. KUB done 11/03/22 showed 4mm calculus in superior of left kidney and a possible 5mm left midpole calculus. No intervention is required at this time. Recommended pt to increase fluid intake to ten to twelve 16oz bottles a day; preferably water, clear pop, and sugar free lemonade. Will follow up with KUB in 6 months. 3. UTI (urinary tract infection) (N39.0: Urinary tract infection, site not specified) UA today shows small leukocytes. Pt denies any sxs of a UTI. Follow-up With When Contact Information VERNA LA, Edward Worrell, URL [facility] [address], [place] [address] [phone] Additional Instructions: 6 mos w/ KUB Patient Education Benign Prostatic Hyperplasia I, Cassandra Oliveira, personally scribed for Dr. Calloway on 11/22/2022 12:00:33. . Documentation recorded by the scribe, Cassandra Oliveira, accurately reflects the services(s) I performed and decisions made by me. Authenticated by Dr. Calloway on 11/22/2022 12:03:23. Problem List/Past Medical History Ongoing Abdominal pain Arthritis Asymptomatic microscopic hematuria BMI 29.0-29.9,adult BPH with obstruction/lower urinary tract symptoms Depression Diabetes Dysuria Epilepsy Gross hematuria H/O psychiatric care Head injury Headaches due to old head trauma History of kidney stones Hypertension Kidney stones Nocturia Post-void dribbling Prostatitis Smoker Stroke UTI (urinary tract infection) Historical Left flank pain Left renal stone LLQ pain Procedure/Surgical History Cystoscopic removal of ureteric stent (08/23/2021), Cystoscopic insertion of ureteric stent (08/02/2021), TURP - Transurethral resection of prostate (02/17/2021), Cystoscope (01/11/2021), Cystoscopy (08/12/2019), CE - Cataract extraction, Cholecystectomy, Colonoscopy, Cystoscopy, Cystoscopy, Hemorrhoidectomy, Open repair of inguinal hernia. Medications aspirin (more content not included)... Normal [facility] Comment on above: Result Comment: Elec tronically Signed By: VERNA LA, Edward Worrell\.br\Date and Time Signed: 11/22/22 12:03 EDT\.br\Electronically Co-Signed By: Cassandra Oliveira\.br\Date and Time Co-Signed: 11/22/22 12:01 EDT PSA Total (Not a Screen)on 0 11-21-2022 PSA Total (Not a Screen) 3.040 ng/mL Normal 0.0 00-4.00 0 [facility] Comment on above: Result Comment: PERF ORMED BY: [place] [address] PATHOLOGIST NEGATIVE ASSEMBLER LAURYN LAGOS M.D. Performed By: #### P SATOTAL #### [address] Prostate specific Ag [Mass/v olume] in Serum or PlasmaOrdered By: Edward Calloway on 11-21-2022 Prostate specific Ag [Mass/Vol] 3.040 ng/mL 0.000-4.00 0 [facility] RAD - MISCon 11-07-2022 RAD - MISC [id number]:127 Normal [facility] Activated partial thrombopla stin time (aPTT) in platelet poor plasma by coagulation aOrdered By: Phil Castaneda on 11-05-2022 aPTT Coag (PPP) [Time] 30.8 s 25.1-36.5 [facility] Alanine aminotransferase [En zymatic activity/volume] in Serum or PlasmaOrdered By: Phil Castaneda on 11-05-2022 ALT [Catalytic activity/Vol] 16 U/L 7-52 [facility] Albumin [Mass/volume] in Ser um or Plasma by Bromocresol green (BCG) dye binding methoOrdered By: Phil Castaneda on 11-05-2022 Albumin BCG dye [Mass/Vol] 4.1 g/dL 3.5-5.7 [facility] Alkaline phosphatase [Enzyma tic activity/volume] in Serum or PlasmaOrdered By: Phil Castaneda on 11-05-2022 ALP [Catalytic activity/Vol] 35 U/L 34-104 [facility] Aspartate aminotransferase [ Enzymatic activity/volume] in Serum or PlasmaOrdered By: Phil Castaneda on 11-05-2022 AST [Catalytic activity/Vol] 18 U/L 13-39 [facility] Automated erythrocytes count in urine sediment (number/area)Ordered By: Phil Castaneda on 11-05-2022 RBC Auto (Urine sed) [#/Area] 0-1 [HPF] 0-4 [facility] Automated leukocytes count i n urine sediment (number/area)Ordered By: Phil Castaneda on 11-05-2022 WBC Auto (Urine sed) [#/Area] 20-49 [HPF] 0-4 [facility] Basophils Auto (Bld) [#/Vol] Ordered By: Phil Castaneda on 11-05-2022 Basophils (Bld) [#/Vol] 0.1 10*3/uL 0.0-0.2 [facility] Basophils/100 WBC Auto (Bld) Ordered By: Phil Castaneda on 11-05-2022 Basophils/100 WBC (Bld) 1.2 % . [facility] Bilirubin Test strip Ql (U)O rdered By: Phil Castaneda on 11-05-2022 Bilirubin Ql (U) Negative Negative [facility] Bilirubin.total [Mass/volume ] in Serum or PlasmaOrdered By: Phil Castaneda on 11-05-2022 Bilirubin [Mass/Vol] 0.6 mg/dL 0.3-1.0 [facility] Calcium [Mass/volume] in Ser um or PlasmaOrdered By: Phil Castaneda on 11-05-2022 Calcium [Mass/Vol] 9.2 mg/dL 8.6-10.[address] [facility] Carbon dioxide, total [Moles /volume] in Serum or PlasmaOrdered By: Phil Castaneda on 11-05-2022 CO2 [Moles/Vol] 25.2 mmol/L 21.0-31.0 [facility] Chloride [Moles/volume] in S prasanth or PlasmaOrdered By: Phil Castaneda on 11-05-2022 Chloride [Moles/Vol] 110 mmol/L 98-107 [facility] Color Auto (U)Ordered By: Carlos Castaneda on 11-05-2022 Color (U) Yellow Yellow [facility] Complete Blood Count Auto Di ffon 11-05-2022 Basophils (Bld) [#/Vol] 0.1 10*3/uL Normal 0.0-0.2 [facility] Comment on above: Result Comment: PERF ORMED BY: [place] [address] PATHOLOGIST NEGATIVE ASSEMBLER LAURYN LAGOS M.D. Performed By: #### C MP, CBC, PT, PTT #### [address] Basophils/100 WBC (Bld) 1.2 % Normal . [facility] Comment on above: Performed By: #### C MP, CBC, PT, PTT #### [address] Eosinophils (Bld) [#/Vol] 0.2 10*3/uL Normal 0.0-0.45 [facility] Comment on above: Performed By: #### C MP, CBC, PT, PTT #### [address] Eosinophils/100 WBC (Bld) 2.7 % Normal . [facility] Comment on above: Performed By: #### C MP, CBC, PT, PTT #### [address] Erythrocyte distribution width (RBC) [Ratio] 17.0 % High 12.0-14.8 [facility] Comment on above: Performed By: #### C MP, CBC, PT, PTT #### [address] Hematocrit (Bld) [Volume fraction] 46.2 % Normal 38.8-50.0 [facility] Comment on above: Performed By: #### C MP, CBC, PT, PTT #### [address] Hemoglobin (Bld) [Mass/Vol] 15.5 g/dL Normal 13.0-17.0 [facility] Comment on above: Performed By: #### C MP, CBC, PT, PTT #### [address] Lymphocytes (Bld) [#/Vol] 1.3 10*3/uL Normal 1.00-4.8 [facility] Comment on above: Performed By: #### C MP, CBC, PT, PTT #### [address] Lymphocytes/100 WBC (Bld) 17.0 % Normal . [facility] Comment on above: Performed By: #### C MP, CBC, PT, PTT #### [address] MCH (RBC) [Entitic mass] 29.5 pg Normal 27.5-35.2 [facility] Comment on above: Performed By: #### C MP, CBC, PT, PTT #### [address] MCV (RBC) [Entitic vol] 87.8 fL Normal 83.5-[address] [facility] Comment on above: Performed By: #### C MP, CBC, PT, PTT #### [address] Mean Corpuscular HGB Conc 33.6 g/dL Normal 32.5-35.6 [facility] Comment on above: Performed By: #### C MP, CBC, PT, PTT #### [address] Monocytes (Bld) [#/Vol] 0.5 10*3/uL Normal 0.0-0.8 [facility] Comment on above: Performed By: #### C MP, CBC, PT, PTT #### [place] [address] [place] Monocytes/100 WBC (Bld) 17.35 % Normal 0.00-20.[address] [facility] Comment on above: Performed By: #### C MP, CBC, PT, PTT #### [place] [address] [place] Monocytes/100 WBC (Bld) 6.7 % Normal . [facility] Comment on above: Performed By: #### C MP, CBC, PT, PTT #### [address] Neutrophils (Bld) [#/Vol] 5.5 10*3/uL Normal 1.8-7.7 [facility] Comment on above: Performed By: #### C MP, CBC, PT, PTT #### [address] Neutrophils/100 WBC (Bld) 72.4 % Normal . [facility] Comment on above: Performed By: #### C MP, CBC, PT, PTT #### [address] NRBC% 0.1 /100{WBC} Normal 0-0.5 [facility] Comment on above: Performed By: #### C MP, CBC, PT, PTT #### [address] Platelet mean volume (Bld) [Entitic vol] 9.1 fL Normal 6.6-10.1 [facility] Comment on above: Performed By: #### C MP, CBC, PT, PTT #### [address] Platelets (Bld) [#/Vol] 167 10*3/uL Normal 150-450 [facility] Comment on above: Performed By: #### C MP, CBC, PT, PTT #### [address] RBC (Bld) [#/Vol] 5.26 10*6/uL Normal 3.90-5.60 [facility] Comment on above: Performed By: #### C MP, CBC, PT, PTT #### [address] WBC (Bld) [#/Vol] 7.6 10*3/uL Normal 4.1-10.[address] [facility] Comment on above: Performed By: #### C MP, CBC, PT, PTT #### [address] [place] [address] [place] Comprehensive Metabolic Pane bobby 11-05-2022 Albumin [Mass/Vol] 4.1 g/dL Normal 3.5-5.[address] [facility] Comment on above: Performed By: #### P SATOTAL #### [address] Albumin/Globulin [Mass ratio] 1.6 {ratio} Normal [facility] Comment on above: Performed By: #### P SATOTAL #### [address] ALP [Catalytic activity/Vol] 35 U/L Normal 34-104 [facility] Comment on above: Performed By: #### P SATOTAL #### [address] ALT [Catalytic activity/Vol] 16 U/L Normal 7-52 [facility] Comment on above: Performed By: #### P SATOTAL #### [address] Anion gap [Moles/Vol] 9.6 mmol/L Normal 6.0-15.0 [facility] Comment on above: Performed By: #### P SATOTAL #### [address] AST [Catalytic activity/Vol] 18 U/L Normal 13-39 [facility] Comment on above: Performed By: #### P SATOTAL #### [address] Bilirubin [Mass/Vol] 0.6 mg/dL Normal 0.3-1.0 [facility] Comment on above: Performed By: #### P SATOTAL #### [address] Calcium [Mass/Vol] 9.2 mg/dL Normal 8.6-10.[address] [facility] Comment on above: Performed By: #### P SATOTAL #### [address] Chloride [Moles/Vol] 110 mmol/L High 98-107 [facility] Comment on above: Performed By: #### P SATOTAL #### [facility] [address] CO2 [Moles/Vol] 25.2 mmol/L Normal 21.0-31.0 [facility] Comment on above: Performed By: #### P SATOTAL #### [facility] [address] Creatinine [Mass/Vol] 0.84 mg/dL Normal 0.70-1.30 [facility] Comment on above: Performed By: #### P SATOTAL #### [facility] [address] [place] [address] [place] Creatinine Clr Calc Pharmacy 79.78 Normal [facility] Comment on above: Result Comment: PERF ORMED BY: [place] [address] PATHOLOGIST NEGATIVE ASSEMBLER LAURYN LAGOS M.D. Performed By: #### P SATOTAL #### [facility] [address] GFR/1.73 sq M.predicted MDRD (S/P/Bld) [Vol rate/Area] mL/min/{1.73_m2} Normal [facility] Comment on above: Performed By: #### P SATOTAL #### [address] Globulin (S) [Mass/Vol] 2.5 g/dL Normal [facility] Comment on above: Performed By: #### P SATOTAL #### [facility] [address] Glucose [Mass/Vol] 79 mg/dL Normal 70-[address] [facility] Comment on above: Result Comment: [place] Glucose Reference Range is dependent on time and content of last meal. Glucose of more than 200 mg/dL in a nonstressed, ambulatory subject supports the diagnosis of Diabetes Mellitus. ADA recommended reference range Performed By: #### P SATOTAL #### [facility] [address] Potassium [Moles/Vol] 3.8 mmol/L Normal 3.5-5.1 [facility] Comment on above: Performed By: #### P SATOTAL #### [facility] [address] [place] [address] [place] Protein [Mass/Vol] 6.6 g/dL Normal 6.4-8.[address] [facility] Comment on above: Performed By: #### P SATOTAL #### [facility] [address] [place] [address] [place] Sodium [Moles/Vol] 141 mmol/L Normal 136-145 [facility] [facility] Comment on above: Performed By: #### P SATOTAL #### [facility] [address] [place] [address] [place] Urea nitrogen [Mass/Vol] 11 mg/dL Normal 7-25 [facility] Comment on above: Performed By: #### P SATOTAL #### [place] [address] [place] Creatinine [Mass/volume] in Serum or PlasmaOrdered By: Phil Castaneda on 11-05-2022 Creatinine [Mass/Vol] 0.84 mg/dL 0.70-1.30 [facility] Dipstick and Microscopicon 0 11-05-2022 Appearance (U) Clear Normal Clear [facility] Comment on above: Order Comment: Name Collection Type:: Clean-Voided Midstream Performed By: #### A DDONUAPLUS, CUU #### [place] [address] [place] Bacteria,Urine None Seen Normal None Seen [facility] Comment on above: Order Comment: Name Collection Type:: Clean-Voided Midstream Performed By: #### A DDONUAPLUS, CUU #### [facility] [address] [place] [address] [place] Bilirubin,Urine Negative Normal Negative [facility] Comment on above: Order Comment: Name Collection Type:: Clean-Voided Midstream Performed By: #### A DDONUAPLUS, CUU #### [place] [address] [place] Color (U) Yellow Normal Yellow [facility] Comment on above: Order Comment: Name Collection Type:: Clean-Voided Midstream Performed By: #### A DDONUAPLUS, CUU #### [facility] [address] [place] [address] Glucose Ql (U) Normal Normal Normal [facility] Comment on above: Order Comment: Name Collection Type:: Clean-Voided Midstream Performed By: #### A DDONUAPLUS, CUU #### [place] [address] [place] Hyaline Casts,Urine 0-8 Normal 0-8 [facility] Comment on above: Order Comment: Name Collection Type:: Clean-Voided Midstream Result Comment: PERF ORMED BY: [place] [address] PATHOLOGIST NEGATIVE ASSEMBLER LAURYN LAGOS M.D. Performed By: #### A DDONUAPLUS, CUU #### [address] Ketones Ql (U) Negative Normal Negative [facility] Comment on above: Order Comment: Name Collection Type:: Clean-Voided Midstream Performed By: #### A DDONUAPLUS, CUU #### [address] Leukocyte esterase Test strip Ql (U) 3+ High Negative [facility] Comment on above: Order Comment: Name Collection Type:: Clean-Voided Midstream Performed By: #### A DDONUAPLUS, CUU #### [place] [address] [place] Nitrite,Urine Positive High Negative [facility] Comment on above: Order Comment: Name Collection Type:: Clean-Voided Midstream Performed By: #### A DDONUAPLUS, CUU #### [address] Occult Blood,Urine Negative Normal Negative [facility] Comment on above: Order Comment: Name Collection Type:: Clean-Voided Midstream Result Comment: PERF ORMED BY: [place] [address] PATHOLOGIST NEGATIVE ASSEMBLER LAURYN LAGOS M.D. Performed By: #### A DDONUAPLUS, CUU #### [address] pH (U) 6.0 [pH] Normal 5.0-9.0 [facility] Comment on above: Order Comment: Name Collection Type:: Clean-Voided Midstream Performed By: #### A DDONUAPLUS, CUU #### [address] Protein,Urine Negative Normal Negative [facility] Comment on above: Order Comment: Name Collection Type:: Clean-Voided Midstream Performed By: #### A DDONUAPLUS, CUU #### [address] RBC LM.HPF (Urine sed) [#/Area] 0 /[HPF] Normal 0-4 [facility] Comment on above: Order Comment: Name Collection Type:: Clean-Voided Midstream Performed By: #### A DDONUAPLUS, CUU #### [address] Specificy [place],Urine 1.014 Normal 1.00 1-1.03 0 [facility] Comment on above: Order Comment: Name Collection Type:: Clean-Voided Midstream Performed By: #### A DDONUAPLUS, CUU #### [address] Squamous Epithelial Cell,Urine None Seen Normal 0-2 [facility] Comment on above: Order Comment: Name Collection Type:: Clean-Voided Midstream Performed By: #### A DDONUAPLUS, CUU #### [address] Urobilinogen,Urine Normal Normal Normal [facility] Comment on above: Order Comment: Name Collection Type:: Clean-Voided Midstream Performed By: #### A DDONUAPLUS, CUU #### [place] [address] [place] WBC,Urine 20-49 High 0-4 [facility] Comment on above: Order Comment: Name Collection Type:: Clean-Voided Midstream Performed By: #### A JUANIS SAMUELS #### [facility] [address] Eosinophils Auto (Bld) [#/Vo l]Ordered By: Phil Castaneda on 11-05-2022 Eosinophils (Bld) [#/Vol] 0.2 10*3/uL 0.0-0.45 [facility] Eosinophils/100 WBC Auto (Bl d)Ordered By: Phil Castaneda on 11-05-2022 Eosinophils/100 WBC (Bld) 2.7 % . [facility] Erythrocyte distribution wid th Auto (RBC) [Ratio]Ordered By: Phil Castaneda on 11-05-2022 Erythrocyte distribution width (RBC) [Ratio] 17.0 % 12.0-14.8 [facility] Fecal occult blood detection by immunochemistryOrdered By: Phil Castaneda on 11-05-2022 Hemoglobin.gastrointesti nal Ql (Stl) [facility] Globulin Calc (S) [Mass/Vol] Ordered By: Phil Castaneda on 11-05-2022 Globulin (S) [Mass/Vol] 2.5 g/dL F [facility] Glucose [Mass/volume] in Ser um or PlasmaOrdered By: Phil Castanead on 11-05-2022 Glucose [Mass/Vol] 79 mg/dL 70-[address] [facility] Comment on above: ADA recommended refe rence rangeRandom Glucose Reference Range is dependent on time and content of last meal. Glucose of more than 200 mg/dL in a nonstressed, ambulatory subject supports the diagnosis of Diabetes Mellitus. Hematocrit Auto (Bld) [Volum e fraction]Ordered By: Phil Castaneda on 11-05-2022 Hematocrit (Bld) [Volume fraction] 46.2 % 38.8-50.0 [facility] Hemoglobin [Mass/volume] in BloodOrdered By: Phil Castaneda on 11-05-2022 Hemoglobin (Bld) [Mass/Vol] 15.5 g/dL 13.0-17.0 [facility] Ketones Auto test strip (U) [Mass/Vol]Ordered By: Phil Castaneda on 11-05-2022 Ketones (U) [Mass/Vol] Negative Negative Fi [facility] - CoagulationOrde red By: Phil Castaneda on 11-05-2022 PT Coag (PPP) [Time] 12.5 s 9.0-12.9 [facility] - UrinalysisOrder ed By: Phil Castaneda on 11-05-2022 Hyaline casts LM Ql (Urine sed) 0-8 [LPF] 0-8 [facility] Leukocytes [#/volume] correc emperatriz for nucleated erythrocytes in Blood by Automated counOrdered By: Phil Castaneda on 11-05-2022 WBC corrected for nucl RBC Auto (Bld) [#/Vol] 7.6 10*3/uL 4.1-10.5 [facility] Lymphocytes Auto (Bld) [#/Vo l]Ordered By: Phil Castaneda on 11-05-2022 Lymphocytes (Bld) [#/Vol] 1.3 10*3/uL 1.00-4.8 [facility] Lymphocytes/100 WBC Auto (Bl d)Ordered By: Phil Castaneda on 11-05-2022 Lymphocytes/100 WBC (Bld) 17.0 % . [facility] MCH Auto (RBC) [Entitic mass ]Ordered By: Phil Castaneda on 11-05-2022 MCH (RBC) [Entitic mass] 29.5 pg 27.5-35.2 [facility] MCHC Auto (RBC) [Mass/Vol]Or dered By: Phil Castaneda on 11-05-2022 MCHC (RBC) [Mass/Vol] 33.6 g/dL 32.5-35.6 [facility] MCV Auto (RBC) [Entitic vol] Ordered By: Phil Castaneda on 11-05-2022 MCV (RBC) [Entitic vol] 87.8 fL 83.5-[address] [facility] Monocyte distribution width [Entitic volume] in Blood by AutomatedOrdered By: Phil Castaneda on 11-05-2022 Monocyte distribution width Auto (Bld) [Entitic vol] 17.35 % 0.00-20.00 [facility] Monocytes Auto (Bld) [#/Vol] Ordered By: Phil Castaneda on 11-05-2022 Monocytes (Bld) [#/Vol] 0.5 10*3/uL 0.0-0.8 [facility] Monocytes/100 WBC Auto (Bld) Ordered By: Phil Castaneda on 11-05-2022 Monocytes/100 WBC (Bld) 6.7 % . [facility] Neutrophils Auto (Bld) [#/Vo l]Ordered By: Phil Castaneda on 11-05-2022 Neutrophils (Bld) [#/Vol] 5.5 10*3/uL 1.8-7.7 [facility] Neutrophils/100 WBC Auto (Bl d)Ordered By: Phil Castaneda on 11-05-2022 Neutrophils/100 WBC (Bld) 72.4 % . [facility] Nitrite Test strip Ql (U)Ord ered By: Phil Castaneda on 11-05-2022 Nitrite Ql (U) Positive Negative [facility] No Panel InformationOrdered By: Phil Castaneda on 11-05-2022 Estimated GFR (CKD-EPI) > 60.0 mL/Min [facility] Creatinine Clearance (Chem 79.78 [facility] Nucleated erythrocytes [Pres ence] in Blood by Automated countOrdered By: Phil Castaneda on 11-05-2022 Nucleated RBC Auto Ql (Bld) 0.1 /100{WBC} 0-0.5 [facility] Partial Thromboplastin Timeo n 11-05-2022 aPTT Coag (Bld) [Time] 30.8 s Normal 25.1-36.5 [facility] Comment on above: Result Comment: PERF ORMED BY: [place] [address] PATHOLOGIST NEGATIVE ASSEMBLER LAURYN LAGOS M.D. Performed By: #### C MP, CBC, PT, PTT #### [address] Platelet mean volume Auto (B ld) [Entitic vol]Ordered By: Phil Castaneda on 11-05-2022 Platelet mean volume (Bld) [Entitic vol] 9.1 fL 6.6-10.1 [facility] Platelet poor plasma interna tional normalized ratio (INR) by coagulation assay ([facility] By: Phil Castaneda on 11-05-2022 INR Coag (PPP) [Relative time] 1.1 {INR} [facility] Comment on above: INR Therapeutic Rang e A) Pre- and Peroperative OAT started two weeks before surgery. NOT HIP SURGERY: 1.5 - 2.5 HIP SURGERY: 2 - 3B) Primary and secondary prevention of venous THROMBOSIS: 2 - 3C) Active venous thrombosis, pulmonary embolismand prevention of recurrent venous thrombosis: 2 - 3D) Prevention of arterial thromboembolismincluding patients with mechanical heart valves: 3 - 4.5 Platelets Auto (Bld) [#/Vol] Ordered By: Phil Castaneda on 11-05-2022 Platelets (Bld) [#/Vol] 167 10*3/uL 150-450 [facility] Potassium [Moles/volume] in Serum or PlasmaOrdered By: Phil Castaneda on 11-05-2022 Potassium [Moles/Vol] 3.8 mmol/L 3.5-5.1 [facility] Protein Auto test strip (U) [Mass/Vol]Ordered By: Phil Castaneda on 11-05-2022 Protein (U) [Mass/Vol] Negative Negative Fi [facility] Protein [Mass/volume] in Ser um or PlasmaOrdered By: Phil Castaneda on 11-05-2022 Protein [Mass/Vol] 6.6 g/dL 6.4-8.[address] [facility] Prothrombin Time INRon 11-05 INR Coag (PPP) [Relative time] 1.1 {INR} Normal [facility] Comment on above: Result Comment: INR Therapeutic Range A) Pre- and Peroperative OAT started two weeks before surgery. NOT HIP SURGERY: 1.5 - 2.5 HIP SURGERY: 2 - 3 B) Primary and secondary prevention of venous THROMBOSIS: 2 - 3 C) Active venous thrombosis, pulmonary embolism and prevention of recurrent venous thrombosis: 2 - 3 D) Prevention of arterial thromboembolism including patients with mechanical heart valves: 3 - 4.5 Performed By: #### C MP, CBC, PT, PTT #### [address] PT Coag (PPP) [Time] 12.5 s Normal 9.0-12.9 [facility] Comment on above: Performed By: #### C MP, CBC, PT, PTT #### [facility] [address] RBC Auto (Bld) [#/Vol]Ordere d By: Phil Castaneda on 11-05-2022 RBC (Bld) [#/Vol] 5.26 10*6/uL 3.90-5.60 [facility] Serum or plasma albumin/glob ulin mass ratioOrdered By: Phil Castaneda on 11-05-2022 Albumin/Globulin [Mass ratio] 1.6 {ratio} [facility] Serum or plasma anion gap de terminationOrdered By: Phil Castaneda on 11-05-2022 Anion gap [Moles/Vol] 9.6 mmol/L 6.0-15.0 [facility] Sodium [Moles/volume] in Ser um or PlasmaOrdered By: Phil Castaneda on 11-05-2022 Sodium [Moles/Vol] 141 mmol/L 136-[address] [facility] Specific gravity Auto test s trip (U) [Rel density]Ordered By: Phil Castaneda on 11-05-2022 Specific gravity (U) [Rel density] 1.014 1.001-1.03 0 [facility] Squamous epithelial cells de tection in urine sediment by light microscopyOrdered By: Phil Castaneda on 11-05-2022 Epithelial cells.squamous LM Ql (Urine sed) None seen [HPF] 0-2 [facility] Stool Occult Blood (Guaiac)o n 11-05-2022 Stool Occult Blood (Guaiac) Occult Blood Negative for Occult Blood by Guaiac Methodology -- Reference range = Negative PERFORMED BY: [facility] [address] [place] [address] PATHOLOGIST NEGATIVE ASSEMBLER LAURYN LAGOS M.D. Normal [facility] Comment on above: Performed By: #### F ER, FE and TIBC, CBC #### [facility] [address] [place] [id number] [place] Urea nitrogen [Mass/volume] in Serum or PlasmaOrdered By: Phil Castaneda on 11-05-2022 Urea nitrogen [Mass/Vol] 11 mg/dL 725 [facility] Urine Cultureon 11-05-2022 Bacteria identified Cx Nom (U) >100,000 colonies/ml mixed bacterial skin contaminants 2 Days PERFORMED BY: [place] [address] PATHOLOGIST NEGATIVE ASSEMBLER LAURYN LAGOS M.D. Normal [facility] Comment on above: Performed By: #### A DDONUAPLUS, CUU #### [facility] [address] [place] [address] Urine bacteria detection by automated methodOrdered By: Phil Castaneda on 11-05-2022 Bacteria Auto Ql (U) None seen None Seen [facility] Urine clarity by refractomet ry automatedOrdered By: Phil Castaneda on 11-05-2022 Clarity Refractometry automated (U) Clear Clear [facility] Urine glucose measurement by automated test strip (mass/volume)Ordered By: Phil Castaneda on 11-05-2022 Glucose Auto test strip (U) [Mass/Vol] Normal mg/dL Normal [facility] Urine hemoglobin detection b y automated test stripOrdered By: Phil Castaneda on 11-05-2022 Hemoglobin Auto test strip Ql (U) Negative Negative [facility] Urine leukocyte esterase det ection by automated test stripOrdered By: Phil Castaneda on 11-05-2022 Leukocyte esterase Auto test strip Ql (U) 3+ Negative [facility] Urobilinogen Auto test strip (U) [Mass/Vol]Ordered By: Phil Castaneda on 11-05-2022 Urobilinogen (U) [Mass/Vol] Normal mg/dL Normal [facility] WBC Auto (Bld) [#/Vol]Ordere d By: Phil Castaneda on 11-05-2022 WBC (Bld) [#/Vol] 7.6 10*3/uL 4.1-10.[address] [facility] pH Auto test strip (U)Ordere d By: Phil Castaneda on 11-05-2022 pH (U) 6.0 [pH] 5.0-9.0 [facility] XR KUBon 11-03-2022 XR KUB [facility] Main [address] [address] XRay Report Signed Patient: Nathan Martin MR#: [id number] : 1955 Acct:[id number] Age/Sex: 67 / M ADM Date: 11/03/22 Loc: XD Room: Type: [facility] Attending Dr: Edward Calloway MD Copies to: Edward Calloway MD Ordering Provider: Edward Calloway MD Date of Service: 11/03/22 XR/XR KUB: N20.0 KUB: CLINICAL DATA: Follow-up kidney stones. COMPARISON: 02/13/2022 Supine views of the abdomen and pelvis were obtained. There is some air and stool within the colon. The kidneys are partially obscured. There is a calcification projecting near the capsule of the left kidney superiorly measuring 4 mm. There is also a calcification projecting in the midpole region on that side measuring 5 mm that may be a stone. There are no suspect renal calculi on the right. No ureteral or bladder stones are visualized. No soft tissue masses are seen. There are calcifications within the prostate. There are degenerative changes at the spine and hips. There are clips from prior cholecystectomy. XR/XR KUB IMPRESSION: POTENTIAL LEFT NEPHROLITHIASIS. Impression dictated by: Krissy Iyer M.D.11/03/2022 4:35 PM Dictation Location: [place] [address] Transcribed By: [facility] 11/03/22 1635 Dictated By: Krissy Iyer MD 11/03/22 1630 Signed By: 11/03/22 1635 Normal [facility] Absolute reticulocyte countO rdered By: Che De Leon on 11-02-2022 Reticulocytes (Bld) [#/Vol] 0.044 10*6/uL 0.024-0.08 4 [facility] Basophils Auto (Bld) [#/Vol] Ordered By: Che De Leon on 11-02-2022 Basophils (Bld) [#/Vol] 0.1 10*3/uL 0.0-0.2 [facility] Basophils/100 WBC Auto (Bld) Ordered By: Che De Leon on 11-02-2022 Basophils/100 WBC (Bld) 1.2 % . F [facility] Complete Blood Count Auto Di ffon 11-02-2022 Basophils (Bld) [#/Vol] 0.1 10*3/uL Normal 0.0-0.2 [facility] Comment on above: Performed By: #### F ER, FE and TIBC, CBC #### [facility] [address] Basophils/100 WBC (Bld) 1.2 % Normal . [facility] Comment on above: Performed By: #### F ER, FE and TIBC, CBC #### [facility] [address] Eosinophils (Bld) [#/Vol] 0.2 10*3/uL Normal 0.0-0.45 [facility] Comment on above: Performed By: #### F ER, FE and TIBC, CBC #### [facility] [address] [place] [address] [place] Eosinophils/100 WBC (Bld) 2.2 % Normal . [facility] Comment on above: Performed By: #### F ER, FE and TIBC, CBC #### [facility] [address] Erythrocyte distribution width (RBC) [Ratio] 16.8 % High 12.0-14.8 [facility] Comment on above: Performed By: #### F ER, FE and TIBC, CBC #### [facility] [address] [place] [address] [place] Hematocrit (Bld) [Volume fraction] 47.2 % Normal 38.8-50.0 [facility] Comment on above: Performed By: #### F ER, FE and TIBC, CBC #### [facility] [address] [place] [address] [place] Hemoglobin (Bld) [Mass/Vol] 15.8 g/dL Normal 13.0-17.0 [facility] Comment on above: Performed By: #### F ER, FE and TIBC, CBC #### [address] Lymphocytes (Bld) [#/Vol] 1.2 10*3/uL Normal 1.00-4.8 [facility] Comment on above: Performed By: #### F ER, FE and TIBC, CBC #### [address] Lymphocytes/100 WBC (Bld) 15.3 % Normal . [facility] Comment on above: Performed By: #### F ER, FE and TIBC, CBC #### [address] MCH (RBC) [Entitic mass] 29.3 pg Normal 27.5-35.2 [facility] Comment on above: Performed By: #### F ER, FE and TIBC, CBC #### [address] MCV (RBC) [Entitic vol] 87.5 fL Normal 83.5-[address] [facility] Comment on above: Performed By: #### F ER, FE and TIBC, CBC #### [address] Mean Corpuscular HGB Conc 33.4 g/dL Normal 32.5-35.6 [facility] Comment on above: Performed By: #### F ER, FE and TIBC, CBC #### [address] Monocytes (Bld) [#/Vol] 0.7 10*3/uL Normal 0.0-0.8 [facility] Comment on above: Performed By: #### F ER, FE and TIBC, CBC #### [address] Monocytes/100 WBC (Bld) 8.8 % Normal . [facility] Comment on above: Performed By: #### F ER, FE and TIBC, CBC #### [place] [address] Neutrophils (Bld) [#/Vol] 5.6 10*3/uL Normal 1.8-7.7 [facility] Comment on above: Performed By: #### F ER, FE and TIBC, CBC #### [address] Neutrophils/100 WBC (Bld) 72.5 % Normal . [facility] Comment on above: Performed By: #### F ER, FE and TIBC, CBC #### [address] NRBC% 0.0 /100{WBC} Normal 0-0.5 [facility] Comment on above: Performed By: #### F ER, FE and TIBC, CBC #### [address] Platelet mean volume (Bld) [Entitic vol] 9.5 fL Normal 6.6-10.1 [facility] Comment on above: Performed By: #### F ER, FE and TIBC, CBC #### [address] Platelets (Bld) [#/Vol] 199 10*3/uL Normal 150-450 [facility] Comment on above: Performed By: #### F ER, FE and TIBC, CBC #### [address] RBC (Bld) [#/Vol] 5.40 10*6/uL Normal 3.90-5.60 [facility] Comment on above: Performed By: #### F ER, FE and TIBC, CBC #### [place] [address] [place] WBC (Bld) [#/Vol] 7.7 10*3/uL Normal 4.1-10.[address] [facility] Comment on above: Performed By: #### F ER, FE and TIBC, CBC #### [place] [address] [place] Eosinophils Auto (Bld) [#/Vo l]Ordered By: Che De Leon on 11-02-2022 Eosinophils (Bld) [#/Vol] 0.2 10*3/uL 0.0-0.45 [facility] Eosinophils/100 WBC Auto (Bl d)Ordered By: Che De Leon on 11-02-2022 Eosinophils/100 WBC (Bld) 2.2 % . [facility] Erythrocyte distribution wid th Auto (RBC) [Ratio]Ordered By: Che De Leon on 11-02-2022 Erythrocyte distribution width (RBC) [Ratio] 16.8 % 12.0-14.8 [facility] Ferritinon 11-02-2022 Ferritin [Mass/Vol] 17.0 ng/mL Low 23.9-336.2 [facility] Comment on above: Result Comment: PERF ORMED BY: [place] [address] PATHOLOGIST NEGATIVE ASSEMBLER LAURYN LAGOS M.D. Performed By: #### F ER, FE and TIBC, CBC #### [address] Ferritin [Mass/volume] in Se rum or PlasmaOrdered By: Che De Leon on 11-02-2022 Ferritin [Mass/Vol] 17.0 ng/mL 23.9-336.2 [facility] Hematocrit Auto (Bld) [Volum e fraction]Ordered By: Che De Leon on 11-02-2022 Hematocrit (Bld) [Volume fraction] 47.2 % 38.8-50.0 [facility] Hemoglobin [Mass/volume] in BloodOrdered By: Che De Leon on 11-02-2022 Hemoglobin (Bld) [Mass/Vol] 15.8 g/dL 13.0-17.0 [facility] Iron [Mass/volume] in Serum or PlasmaOrdered By: Che De Leon on 11-02-2022 Iron [Mass/Vol] 160 ug/dL 50-212 [facility] Iron and TIBC Profileon % Iron Saturation 44.9 % Normal 20-50 [facility] Comment on above: Performed By: #### F ER, FE and TIBC, CBC #### [facility] [address] [place] [address] [place] Iron [Mass/Vol] 160 ug/dL Normal 50-212 [facility] Comment on above: Performed By: #### F ER, FE and TIBC, CBC #### [facility] [address] [place] [address] [place] Total Iron Binding Capacity 356 ug/dL Normal 255-450 [facility] Comment on above: Performed By: #### F ER, FE and TIBC, CBC #### [facility] [address] [place] [address] [place] Transferrin [Mass/Vol] 254 mg/dL Normal 203-362 [facility] Comment on above: Performed By: #### F ER, FE and TIBC, CBC #### [facility] [address] Iron binding capacity [Mass/ volume] in Serum or PlasmaOrdered By: Che De Leon on 11-02-2022 Iron binding capacity [Mass/Vol] 356 ug/dL 255-450 [facility] Iron saturation [Mass Fracti on] in Serum or PlasmaOrdered By: Che De Leon on 11-02-2022 Iron saturation [Mass fraction] 44.9 % 20-50 [facility] Leukocytes [#/volume] correc emperatriz for nucleated erythrocytes in Blood by Automated counOrdered By: Che De Leon on 11-02-2022 WBC corrected for nucl RBC Auto (Bld) [#/Vol] 7.7 10*3/uL 4.1-10.5 [facility] Lymphocytes Auto (Bld) [#/Vo l]Ordered By: Che De Leon on 11-02-2022 Lymphocytes (Bld) [#/Vol] 1.2 10*3/uL 1.00-4.8 [facility] Lymphocytes/100 WBC Auto (Bl d)Ordered By: Che De Leon on 11-02-2022 Lymphocytes/100 WBC (Bld) 15.3 % . [facility] MCH Auto (RBC) [Entitic mass ]Ordered By: Che De Leon on 11-02-2022 MCH (RBC) [Entitic mass] 29.3 pg 27.5-35.2 [facility] MCHC Auto (RBC) [Mass/Vol]Or dered By: Che De Leon on 11-02-2022 MCHC (RBC) [Mass/Vol] 33.4 g/dL 32.5-35.6 [facility] MCV Auto (RBC) [Entitic vol] Ordered By: Che De Leon on 11-02-2022 MCV (RBC) [Entitic vol] 87.5 fL 83.5-[address] [facility] Monocytes Auto (Bld) [#/Vol] Ordered By: Che De Leon on 11-02-2022 Monocytes (Bld) [#/Vol] 0.7 10*3/uL 0.0-0.8 [facility] Monocytes/100 WBC Auto (Bld) Ordered By: Che De Leon on 11-02-2022 Monocytes/100 WBC (Bld) 8.8 % . F [facility] Neutrophils Auto (Bld) [#/Vo l]Ordered By: Che De Leon on 11-02-2022 Neutrophils (Bld) [#/Vol] 5.6 10*3/uL 1.8-7.7 [facility] Neutrophils/100 WBC Auto (Bl d)Ordered By: Che De Leon on 11-02-2022 Neutrophils/100 WBC (Bld) 72.5 % . [facility] Nucleated erythrocytes [Pres ence] in Blood by Automated countOrdered By: Che De Leon on 11-02-2022 Nucleated RBC Auto Ql (Bld) 0.0 /100{WBC} 0-0.5 [facility] Platelet mean volume Auto (B ld) [Entitic vol]Ordered By: Che De Leon on 11-02-2022 Platelet mean volume (Bld) [Entitic vol] 9.5 fL 6.6-10.1 [facility] Platelets Auto (Bld) [#/Vol] Ordered By: Che De Leon on 11-02-2022 Platelets (Bld) [#/Vol] 199 10*3/uL 150-450 [facility] RBC Auto (Bld) [#/Vol]Ordere d By: Che De Leon on 11-02-2022 RBC (Bld) [#/Vol] 5.40 10*6/uL 3.90-5.60 [facility] Reticulocyte Counton 023 Reticulocyte Number 0.044 10*6/uL Normal 0.024-0 .08 4 [facility] [facility] Comment on above: Result Comment: PERF ORMED BY: [facility] [address] [place] [address] PATHOLOGIST NEGATIVE ASSEMBLER LAURYN LAGOS M.D. Performed By: #### F ER, FE and TIBC, CBC #### [facility] [address] Reticulocyte Percent 0.8 % Normal 0.5-1.5 [facility] Comment on above: Performed By: #### F ER, FE and TIBC, CBC #### [facility] [address] [place] [address] [place] Reticulocytes/100 RBC Auto ( Bld)Ordered By: Che De Leon on 11-02-2022 Reticulocytes/100 RBC (Bld) 0.8 % 0.5-1.5 [facility] Transferrin [Mass/volume] in Serum or PlasmaOrdered By: Che De Leon on 11-02-2022 Transferrin [Mass/Vol] 254 mg/dL 203-362 [facility] WBC Auto (Bld) [#/Vol]Ordere d By: Che De Leon on 11-02-2022 WBC (Bld) [#/Vol] 7.7 10*3/uL 4.1-10.[address] [facility] Basophils Auto (Bld) [#/Vol] Ordered By: Boris Zayas on 10-02-2022 Basophils (Bld) [#/Vol] 0.1 10*3/uL 0.0-0.2 [facility] Basophils/100 WBC Auto (Bld) Ordered By: Boris Zayas on 10-02-2022 Basophils/100 WBC (Bld) 1.2 % . [facility] Complete Blood Count Auto Di ffon 10-02-2022 Basophils (Bld) [#/Vol] 0.1 10*3/uL Normal 0.0-0.2 [facility] Comment on above: Order Comment: Reaso n for Exam Iron deficiency Result Comment: PERF ORMED BY: [place] [address] PATHOLOGIST NEGATIVE ASSEMBLER LAURYN LAGOS M.D. Performed By: #### F ER, FE and TIBC, CBC #### [address] Basophils/100 WBC (Bld) 1.2 % Normal . [facility] Comment on above: Order Comment: Reaso n for Exam Iron deficiency Performed By: #### F ER, FE and TIBC, CBC #### [address] Eosinophils (Bld) [#/Vol] 0.2 10*3/uL Normal 0.0-0.45 [facility] Comment on above: Order Comment: Reaso n for Exam Iron deficiency Performed By: #### F ER, FE and TIBC, CBC #### [address] Eosinophils/100 WBC (Bld) 2.3 % Normal . [facility] Comment on above: Order Comment: Reaso n for Exam Iron deficiency Performed By: #### F ER, FE and TIBC, CBC #### [facility] [address] [place] [address] Erythrocyte distribution width (RBC) [Ratio] 18.0 % High 12.0-14.8 [facility] Comment on above: Order Comment: Reaso n for Exam Iron deficiency Performed By: #### F ER, FE and TIBC, CBC #### [facility] [address] [place] [address] Hematocrit (Bld) [Volume fraction] 46.6 % Normal 38.8-50.0 [facility] Comment on above: Order Comment: Reaso n for Exam Iron deficiency Performed By: #### F ER, FE and TIBC, CBC #### [address] Hemoglobin (Bld) [Mass/Vol] 15.7 g/dL Normal 13.0-17.0 [facility] Comment on above: Order Comment: Reaso n for Exam Iron deficiency Performed By: #### F ER, FE and TIBC, CBC #### [address] Lymphocytes (Bld) [#/Vol] 1.3 10*3/uL Normal 1.00-4.8 [facility] Comment on above: Order Comment: Reaso n for Exam Iron deficiency Performed By: #### F ER, FE and TIBC, CBC #### [address] Lymphocytes/100 WBC (Bld) 18.6 % Normal . [facility] Comment on above: Order Comment: Reaso n for Exam Iron deficiency Performed By: #### F ER, FE and TIBC, CBC #### [address] MCH (RBC) [Entitic mass] 29.0 pg Normal 27.5-35.2 [facility] Comment on above: Order Comment: Reaso n for Exam Iron deficiency Performed By: #### F ER, FE and TIBC, CBC #### [address] MCV (RBC) [Entitic vol] 86.2 fL Normal 83.5-[address] [facility] Comment on above: Order Comment: Reaso n for Exam Iron deficiency Performed By: #### F ER, FE and TIBC, CBC #### [address] Mean Corpuscular HGB Conc 33.6 g/dL Normal 32.5-35.6 [facility] Comment on above: Order Comment: Reaso n for Exam Iron deficiency Performed By: #### F ER, FE and TIBC, CBC #### [facility] [address] [place] [address] [place] Monocytes (Bld) [#/Vol] 0.6 10*3/uL Normal 0.0-0.8 [facility] Comment on above: Order Comment: Reaso n for Exam Iron deficiency Performed By: #### F ER, FE and TIBC, CBC #### [facility] [address] [place] [address] [place] Monocytes/100 WBC (Bld) 8.6 % Normal . [facility] Comment on above: Order Comment: Reaso n for Exam Iron deficiency Performed By: #### F ER, FE and TIBC, CBC #### [facility] [address] Neutrophils (Bld) [#/Vol] 4.8 10*3/uL Normal 1.8-7.7 [facility] Comment on above: Order Comment: Reaso n for Exam Iron deficiency Performed By: #### F ER, FE and TIBC, CBC #### [facility] [address] Neutrophils/100 WBC (Bld) 69.3 % Normal . [facility] Comment on above: Order Comment: Reaso n for Exam Iron deficiency Performed By: #### F ER, FE and TIBC, CBC #### [facility] [address] NRBC% 0.1 /100{WBC} Normal 0-0.5 [facility] Comment on above: Order Comment: Reaso n for Exam Iron deficiency Performed By: #### F ER, FE and TIBC, CBC #### [facility] [address] [place] [address] [place] Platelet mean volume (Bld) [Entitic vol] 9.3 fL Normal 6.6-10.1 [facility] Comment on above: Order Comment: Reaso n for Exam Iron deficiency Performed By: #### F ER, FE and TIBC, CBC #### [facility] [address] [place] [address] [place] Platelets (Bld) [#/Vol] 182 10*3/uL Normal 150-450 [facility] Comment on above: Order Comment: Reaso n for Exam Iron deficiency Performed By: #### F ER, FE and TIBC, CBC #### [facility] [address] RBC (Bld) [#/Vol] 5.41 10*6/uL Normal 3.90-5.60 [facility] Comment on above: Order Comment: Reaso n for Exam Iron deficiency Performed By: #### F ER, FE and TIBC, CBC #### [address] WBC (Bld) [#/Vol] 6.9 10*3/uL Normal 4.1-10.[address] [facility] Comment on above: Order Comment: Reaso n for Exam Iron deficiency Performed By: #### F ER, FE and TIBC, CBC #### [address] Eosinophils Auto (Bld) [#/Vo l]Ordered By: Boris Zayas on 10-02-2022 Eosinophils (Bld) [#/Vol] 0.2 10*3/uL 0.0-0.45 [facility] Eosinophils/100 WBC Auto (Bl d)Ordered By: Boris Zayas on 10-02-2022 Eosinophils/100 WBC (Bld) 2.3 % . [facility] Erythrocyte distribution wid th Auto (RBC) [Ratio]Ordered By: Boris Zayas on 10-02-2022 Erythrocyte distribution width (RBC) [Ratio] 18.0 % 12.0-14.8 [facility] Ferritinon 10-02-2022 Ferritin [Mass/Vol] 12.2 ng/mL Low 23.9-336.2 [facility] Comment on above: Order Comment: Reaso n for Exam Iron deficiency Result Comment: PERF ORMED BY: [place] [address] PATHOLOGIST NEGATIVE ASSEMBLER LAURYN LAGOS M.D. Performed By: #### F ER, FE and TIBC, CBC #### [address] Ferritin [Mass/volume] in Se rum or PlasmaOrdered By: Boris Zayas on 10-02-2022 Ferritin [Mass/Vol] 12.2 ng/mL 23.9-336.2 [facility] Folate [Mass/volume] in Seru m or PlasmaOrdered By: Boris Zayas on 10-02-2022 Folate [Mass/Vol] 24.0 ng/mL >5.9 [facility] Comment on above: Folate reference ran ge: >5.9 ng/mlThe WHO technical consultation on folate and vitamin [id number] has determined that folate concentrations lessthan 4 ng/ml are considered deficient. Hematocrit Auto (Bld) [Volum e fraction]Ordered By: Boris Zayas on 10-02-2022 Hematocrit (Bld) [Volume fraction] 46.6 % 38.8-50.0 [facility] Hemoglobin [Mass/volume] in BloodOrdered By: Boris Zayas on 10-02-2022 Hemoglobin (Bld) [Mass/Vol] 15.7 g/dL 13.0-17.0 [facility] Iron [Mass/volume] in Serum or PlasmaOrdered By: Boris Zayas on 10-02-2022 Iron [Mass/Vol] 68 ug/dL 50-212 [facility] Iron and TIBC Profileon 06-0 -2022 % Iron Saturation 19.0 % Low 20-50 [facility] Comment on above: Order Comment: Reaso n for Exam Iron deficiency Performed By: #### F ER, FE and TIBC, CBC #### [facility] [address] Iron [Mass/Vol] 68 ug/dL Normal 50-212 [facility] Comment on above: Order Comment: Reaso n for Exam Iron deficiency Performed By: #### F ER, FE and TIBC, CBC #### [facility] [address] Total Iron Binding Capacity 357 ug/dL Normal 255-450 [facility] Comment on above: Order Comment: Reaso n for Exam Iron deficiency Performed By: #### F ER, FE and TIBC, CBC #### [facility] [address] [place] [id number] [facility] Transferrin [Mass/Vol] 255 mg/dL Normal 203-362 [facility] Comment on above: Order Comment: Gurpreet n for Exam Iron deficiency Performed By: #### F ER, FE and TIBC, CBC #### [facility] [address] [place] [id number] [facility] Iron binding capacity [Mass/ volume] in Serum or PlasmaOrdered By: Boris Zayas on 10-02-2022 Iron binding capacity [Mass/Vol] 357 ug/dL 255-450 [facility] Iron saturation [Mass Fracti on] in Serum or PlasmaOrdered By: Boris Zayas on 10-02-2022 Iron saturation [Mass fraction] 19.0 % 20-50 [facility] Leukocytes [#/volume] correc emperatriz for nucleated erythrocytes in Blood by Automated counOrdered By: Boris Zayas on 10-02-2022 WBC corrected for nucl RBC Auto (Bld) [#/Vol] 6.9 10*3/uL 4.1-10.5 [facility] Lymphocytes Auto (Bld) [#/Vo l]Ordered By: Boris Zayas on 10-02-2022 Lymphocytes (Bld) [#/Vol] 1.3 10*3/uL 1.00-4.8 [facility] Lymphocytes/100 WBC Auto (Bl d)Ordered By: Boris Zayas on 10-02-2022 Lymphocytes/100 WBC (Bld) 18.6 % . [facility] MCH Auto (RBC) [Entitic mass ]Ordered By: Boris Zayas on 10-02-2022 MCH (RBC) [Entitic mass] 29.0 pg 27.5-35.2 [facility] MCHC Auto (RBC) [Mass/Vol]Or dered By: Boris Zayas on 10-02-2022 MCHC (RBC) [Mass/Vol] 33.6 g/dL 32.5-35.6 [facility] MCV Auto (RBC) [Entitic vol] Ordered By: Boris Zayas on 10-02-2022 MCV (RBC) [Entitic vol] 86.2 fL 83.5-101 [facility] Monocytes Auto (Bld) [#/Vol] Ordered By: Boris Zayas on 10-02-2022 Monocytes (Bld) [#/Vol] 0.6 10*3/uL 0.0-0.8 [facility] Monocytes/100 WBC Auto (Bld) Ordered By: Boris Zayas on 10-02-2022 Monocytes/100 WBC (Bld) 8.6 % . [facility] Neutrophils Auto (Bld) [#/Vo l]Ordered By: Boris Zayas on 10-02-2022 Neutrophils (Bld) [#/Vol] 4.8 10*3/uL 1.8-7.7 [facility] Neutrophils/100 WBC Auto (Bl d)Ordered By: Boris Zayas on 10-02-2022 Neutrophils/100 WBC (Bld) 69.3 % . [facility] Nucleated erythrocytes [Pres ence] in Blood by Automated countOrdered By: Boris Zayas on 10-02-2022 Nucleated RBC Auto Ql (Bld) 0.1 /100{WBC} 0-0.5 [facility] Platelet mean volume Auto (B ld) [Entitic vol]Ordered By: Boris Zayas on 10-02-2022 Platelet mean volume (Bld) [Entitic vol] 9.3 fL 6.6-10.1 [facility] Platelets Auto (Bld) [#/Vol] Ordered By: Boris Zayas on 10-02-2022 Platelets (Bld) [#/Vol] 182 10*3/uL 150-450 [facility] RBC Auto (Bld) [#/Vol]Ordere d By: Boris Zayas on 10-02-2022 RBC (Bld) [#/Vol] 5.41 10*6/uL 3.90-5.60 [facility] Transferrin [Mass/volume] in Serum or PlasmaOrdered By: Boris Zayas on 10-02-2022 Transferrin [Mass/Vol] 255 mg/dL 203-362 [facility] Vit. B12/Folate Profileon Cobalamin (Vitamin B12) [Mass/Vol] 361 pg/mL Normal 180-914 [facility] Comment on above: Order Comment: Reaso n for Exam Iron deficiency Performed By: #### F ER, FE and TIBC, CBC #### [facility] [address] [place] [id number] [facility] Folate 24.0 ng/mL Normal >5.9 [facility] Comment on above: Order Comment: Reaso n for Exam Iron deficiency Result Comment: [place] reference range: >5.9 ng/ml The WHO technical consultation on folate and vitamin b12 deficiencies has determined that folate concentrations less than 4 ng/ml are considered deficient. PERFORMED BY: [facility] [address] [place] [address] PATHOLOGIST NEGATIVE ASSEMBLER LAURYN LAGOS M.D. Performed By: #### F ER, FE and TIBC, CBC #### [facility] [address] [place] [id number] [facility] Vitamin B12 ser/plasOrdered By: Boris Zayas on 10-02-2022 Cobalamin (Vitamin B12) [Mass/Vol] 361 pg/mL 180-914 [facility] WBC Auto (Bld) [#/Vol]Ordere d By: Boris Zayas on 10-02-2022 WBC (Bld) [#/Vol] 6.9 10*3/uL 4.1-10.[address] [facility] Alanine aminotransferase [En zymatic activity/volume] in Serum or PlasmaOrdered By: Elicia Malone on 09-17-2022 ALT [Catalytic activity/Vol] 32 U/L 7-52 [facility] Albumin [Mass/volume] in Ser um or Plasma by Bromocresol green (BCG) dye binding methoOrdered By: Elicia Malone on 09-17-2022 Albumin BCG dye [Mass/Vol] 4.5 g/dL 3.5-5.7 [facility] Alkaline phosphatase [Enzyma tic activity/volume] in Serum or PlasmaOrdered By: Elicia Malone on 09-17-2022 ALP [Catalytic activity/Vol] 46 U/L 34-104 [facility] Aspartate aminotransferase [ Enzymatic activity/volume] in Serum or PlasmaOrdered By: Elicia Malone on 09-17-2022 AST [Catalytic activity/Vol] 22 U/L 13-39 [facility] Automated erythrocytes count in urine sediment (number/area)Ordered By: Elicia Malone on 09-17-2022 RBC Auto (Urine sed) [#/Area] None seen [HPF] 0-4 [facility] Automated leukocytes count i n urine sediment (number/area)Ordered By: Elicia Malone on 09-17-2022 WBC Auto (Urine sed) [#/Area] 3-4 [HPF] 0-4 [facility] Basophils Auto (Bld) [#/Vol] Ordered By: Elicia Malone on 09-17-2022 Basophils (Bld) [#/Vol] 0.1 10*3/uL 0.0-0.2 [facility] Basophils/100 WBC Auto (Bld) Ordered By: Elicia Malone on 09-17-2022 Basophils/100 WBC (Bld) 1.3 % . [facility] Bilirubin Test strip Ql (U)O rdered By: Elicia Malone on 09-17-2022 Bilirubin Ql (U) Negative Negative [facility] Bilirubin.total [Mass/volume ] in Serum or PlasmaOrdered By: Elicia Malone on 09-17-2022 Bilirubin [Mass/Vol] 0.5 mg/dL 0.3-1.0 [facility] C reactive protein [Mass/vol ume] in Serum or PlasmaOrdered By: Elicia Malone on 09-17-2022 CRP [Mass/Vol] < 0.5 mg/dL 0.0-0.5 [facility] C-Reactive Proteinon 023 CRP [Mass/Vol] mg/L Normal 0.0-0.5 [facility] Comment on above: Result Comment: PERF ORMED BY: [place] [address] PATHOLOGIST NEGATIVE ASSEMBLER LAURYN LAGOS M.D. Performed By: #### P SATOTAL #### [address] Calcium [Mass/volume] in Ser um or PlasmaOrdered By: Elicia Malone on 09-17-2022 Calcium [Mass/Vol] 9.9 mg/dL 8.6-10.[address] [facility] Carbon dioxide, total [Moles /volume] in Serum or PlasmaOrdered By: Elicia Malone on 09-17-2022 CO2 [Moles/Vol] 23.1 mmol/L 21.0-31.0 [facility] Chloride [Moles/volume] in S prasanth or PlasmaOrdered By: Elicia Malone on 09-17-2022 Chloride [Moles/Vol] 106 mmol/L 98-107 [facility] Color Auto (U)Ordered By: Rubens Malone on 09-17-2022 Color (U) Yellow Yellow [facility] Complete Blood Count Auto Di ffon 09-17-2022 Basophils (Bld) [#/Vol] 0.1 10*3/uL Normal 0.0-0.2 [facility] Comment on above: Result Comment: PERF ORMED BY: [place] [address] PATHOLOGIST NEGATIVE ASSEMBLER LAURYN LAGOS M.D. Performed By: #### P SATOTAL #### [address] Basophils/100 WBC (Bld) 1.3 % Normal . [facility] Comment on above: Performed By: #### P SATOTAL #### [address] Eosinophils (Bld) [#/Vol] 0.3 10*3/uL Normal 0.0-0.45 [facility] Comment on above: Performed By: #### P SATOTAL #### [address] Eosinophils/100 WBC (Bld) 2.7 % Normal . [facility] Comment on above: Performed By: #### P SATOTAL #### [address] Erythrocyte distribution width (RBC) [Ratio] 18.7 % High 12.0-14.8 [facility] Comment on above: Performed By: #### P SATOTAL #### [address] Hematocrit (Bld) [Volume fraction] 48.9 % Normal 38.8-50.0 [facility] Comment on above: Performed By: #### P SATOTAL #### [facility] [address] Hemoglobin (Bld) [Mass/Vol] 16.5 g/dL Normal 13.0-17.0 [facility] Comment on above: Performed By: #### P SATOTAL #### [facility] [address] Lymphocytes (Bld) [#/Vol] 1.8 10*3/uL Normal 1.00-4.8 [facility] Comment on above: Performed By: #### P SATOTAL #### [address] Lymphocytes/100 WBC (Bld) 19.3 % Normal . [facility] Comment on above: Performed By: #### P SATOTAL #### [address] MCH (RBC) [Entitic mass] 28.4 pg Normal 27.5-35.2 [facility] Comment on above: Performed By: #### P SATOTAL #### [address] MCV (RBC) [Entitic vol] 84.3 fL Normal 83.5-[address] [facility] Comment on above: Performed By: #### P SATOTAL #### [address] Mean Corpuscular HGB Conc 33.7 g/dL Normal 32.5-35.6 [facility] Comment on above: Performed By: #### P SATOTAL #### [address] Monocytes (Bld) [#/Vol] 0.7 10*3/uL Normal 0.0-0.8 [facility] Comment on above: Performed By: #### P SATOTAL #### [address] Monocytes/100 WBC (Bld) 7.9 % Normal . [facility] Comment on above: Performed By: #### P SATOTAL #### [facility] [address] [place] [address] [place] Neutrophils (Bld) [#/Vol] 6.5 10*3/uL Normal 1.8-7.7 [facility] Comment on above: Performed By: #### P SATOTAL #### [facility] [address] Neutrophils/100 WBC (Bld) 68.8 % Normal . [facility] Comment on above: Performed By: #### P SATOTAL #### [address] NRBC% 0.1 /100{WBC} Normal 0-0.5 [facility] Comment on above: Performed By: #### P SATOTAL #### [address] Platelet mean volume (Bld) [Entitic vol] 8.4 fL Normal 6.6-10.1 [facility] Comment on above: Performed By: #### P SATOTAL #### [address] Platelets (Bld) [#/Vol] 212 10*3/uL Normal 150-450 [facility] Comment on above: Performed By: #### P SATOTAL #### [address] RBC (Bld) [#/Vol] 5.80 10*6/uL High 3.90-5.60 [facility] Comment on above: Performed By: #### P SATOTAL #### [address] WBC (Bld) [#/Vol] 9.5 10*3/uL Normal 4.1-10.[address] [facility] Comment on above: Performed By: #### P SATOTAL #### [address] Comprehensive Metabolic Pane bobby 09-17-2022 Albumin [Mass/Vol] 4.5 g/dL Normal 3.5-5.[address] [facility] Comment on above: Performed By: #### P SATOTAL #### [address] Albumin/Globulin [Mass ratio] 1.5 {ratio} Normal [facility] Comment on above: Performed By: #### P SATOTAL #### [address] ALP [Catalytic activity/Vol] 46 U/L Normal 34-104 [facility] Comment on above: Performed By: #### P SATOTAL #### [address] ALT [Catalytic activity/Vol] 32 U/L Normal 7-52 [facility] Comment on above: Performed By: #### P SATOTAL #### [address] Anion gap [Moles/Vol] 13.2 mmol/L Normal 6.0-15.0 [facility] Comment on above: Performed By: #### P SATOTAL #### [address] AST [Catalytic activity/Vol] 22 U/L Normal 13-39 [facility] Comment on above: Performed By: #### P SATOTAL #### [address] Bilirubin [Mass/Vol] 0.5 mg/dL Normal 0.3-1.0 [facility] Comment on above: Performed By: #### P SATOTAL #### [address] Calcium [Mass/Vol] 9.9 mg/dL Normal 8.6-10.[address] [facility] Comment on above: Performed By: #### P SATOTAL #### [address] Chloride [Moles/Vol] 106 mmol/L Normal 98-107 [facility] Comment on above: Performed By: #### P SATOTAL #### [place] [address] [place] CO2 [Moles/Vol] 23.1 mmol/L Normal 21.0-31.0 [facility] Comment on above: Performed By: #### P SATOTAL #### [address] Creatinine [Mass/Vol] 1.10 mg/dL Normal 0.70-1.30 [facility] Comment on above: Performed By: #### P SATOTAL #### [address] Creatinine Clr Calc Pharmacy 66.66 [facility] Comment on above: Performed By: #### P SATOTAL #### [address] GFR/1.73 sq M.predicted MDRD (S/P/Bld) [Vol rate/Area] mL/min/{1.73_m2} [facility] Comment on above: Performed By: #### P SATOTAL #### [address] Globulin (S) [Mass/Vol] 3.1 g/dL Normal [facility] Comment on above: Performed By: #### P SATOTAL #### [address] Glucose [Mass/Vol] 99 mg/dL Normal 70-[address] [facility] Comment on above: Result Comment: [facility] Glucose Reference Range is dependent on time and content of last meal. Glucose of more than 200 mg/dL in a nonstressed, ambulatory subject supports the diagnosis of Diabetes Mellitus. ADA recommended reference range Performed By: #### P SATOTAL #### [address] Potassium [Moles/Vol] 4.3 mmol/L Normal 3.5-5.1 [facility] Comment on above: Performed By: #### P SATOTAL #### [address] Protein [Mass/Vol] 7.6 g/dL Normal 6.4-8.[address] [facility] Comment on above: Performed By: #### P SATOTAL #### [address] Sodium [Moles/Vol] 138 mmol/L Normal 136-[address] [facility] Comment on above: Performed By: #### P SATOTAL #### [address] Urea nitrogen [Mass/Vol] 17 mg/dL Normal 7-25 [facility] Comment on above: Performed By: #### P SATOTAL #### [address] Creatinine [Mass/volume] in Serum or PlasmaOrdered By: Elicia Malone on 09-17-2022 Creatinine [Mass/Vol] 1.10 mg/dL 0.70-1.30 [facility] D-Dimer High Sensitivityon 0 09-17-2022 D-Dimer High Sensitivity < 200 Normal 0-243 [facility] Comment on above: Result Comment: The reference range for D-dimer is <243 ng/mL D-dimer units. D-dimer results must be used in conjunction with a clinical pretest probability (PTP) assessment model for deep vein thrombosis (DVT) and pulmonary embolism (PE). Results <230 ng/mL d-dimer units can be used as a negative predictor in patients with low or moderate probability for DVT/PE. Results above the exclusion threshold of 230 ng/ml D-dimer units for DVT/PE may indicate the need for further diagnostic testing. D-Dimer can be increased in hospitalized patients due to co-morbid conditions. PERFORMED BY: [place] [address] PATHOLOGIST NEGATIVE ASSEMBLER LAURYN LAGOS M.D. Performed By: #### P SATOTAL #### [place] [address] [place] Dipstick and Microscopicon 0 09-17-2022 Appearance (U) Clear Normal Clear [facility] Comment on above: Order Comment: Name Collection Type:: Clean-Voided Midstream Performed By: #### F ER, FE and TIBC, CBC #### [address] Bacteria,Urine None Seen Normal None Seen [facility] Comment on above: Order Comment: Name Collection Type:: Clean-Voided Midstream Performed By: #### F ER, FE and TIBC, CBC #### [facility] [address] [place] [address] [place] Bilirubin,Urine Negative Normal Negative [facility] Comment on above: Order Comment: Name Collection Type:: Clean-Voided Midstream Performed By: #### F ER, FE and TIBC, CBC #### [facility] [address] [place] [address] [place] Color (U) Yellow Normal Yellow [facility] Comment on above: Order Comment: Name Collection Type:: Clean-Voided Midstream Performed By: #### F ER, FE and TIBC, CBC #### [facility] [address] [place] [address] [place] Glucose Ql (U) Normal Normal Normal [facility] Comment on above: Order Comment: Name Collection Type:: Clean-Voided Midstream Performed By: #### F ER, FE and TIBC, CBC #### [facility] [address] [place] [address] [place] Hyaline Casts,Urine 0-8 Normal 0-8 [facility] Comment on above: Order Comment: Name Collection Type:: Clean-Voided Midstream Result Comment: PERF ORMED BY: [place] [address] PATHOLOGIST NEGATIVE ASSEMBLER LAURYN LAGOS M.D. Performed By: #### F ER, FE and TIBC, CBC #### [facility] [address] [place] [address] [place] Ketones Ql (U) Negative Normal Negative [facility] Comment on above: Order Comment: Name Collection Type:: Clean-Voided Midstream Performed By: #### F ER, FE and TIBC, CBC #### [facility] [address] [place] [address] [place] Leukocyte esterase Test strip Ql (U) 2+ High Negative [facility] Comment on above: Order Comment: Name Collection Type:: Clean-Voided Midstream Performed By: #### F ER, FE and TIBC, CBC #### [facility] [address] [place] [address] [place] Nitrite,Urine Negative Normal Negative [facility] Comment on above: Order Comment: Name Collection Type:: Clean-Voided Midstream Performed By: #### F ER, FE and TIBC, CBC #### [address] Occult Blood,Urine Trace High Negative [facility] Comment on above: Order Comment: Name Collection Type:: Clean-Voided Midstream Result Comment: PERF ORMED BY: [place] [address] PATHOLOGIST NEGATIVE ASSEMBLER LAURYN LAGOS M.D. Performed By: #### F ER, FE and TIBC, CBC #### [address] pH (U) 5.5 [pH] Normal 5.0-9.0 [facility] Comment on above: Order Comment: Name Collection Type:: Clean-Voided Midstream Performed By: #### F ER, FE and TIBC, CBC #### [place] [address] [place] Protein,Urine Negative Normal Negative [facility] Comment on above: Order Comment: Name Collection Type:: Clean-Voided Midstream Performed By: #### F ER, FE and TIBC, CBC #### [address] RBC,Urine None Seen Normal 0-4 [facility] Comment on above: Order Comment: Name Collection Type:: Clean-Voided Midstream Performed By: #### F ER, FE and TIBC, CBC #### [place] [address] [place] Specificy [place],Urine 1.007 Normal 1.00 1-1.03 0 [facility] Comment on above: Order Comment: Name Collection Type:: Clean-Voided Midstream Performed By: #### F ER, FE and TIBC, CBC #### [place] [address] [place] Squamous Epithelial Cell,Urine None Seen Normal 0-2 [facility] Comment on above: Order Comment: Name Collection Type:: Clean-Voided Midstream Performed By: #### F ER, FE and TIBC, CBC #### [facility] [address] [place] [address] [facility] Urobilinogen,Urine Normal Normal Normal [facility] Comment on above: Order Comment: Name Collection Type:: Clean-Voided Midstream Performed By: #### F ER, FE and TIBC, CBC #### [facility] [address] [place] [address] [facility] WBC,Urine 3-4 Normal 0-4 [facility] Comment on above: Order Comment: Name Collection Type:: Clean-Voided Midstream Performed By: #### F ER, FE and TIBC, CBC #### [facility] [address] [place] [address] [facility] ECG 12 lead ECGon 09-17-2022 ECG 12 lead ECG [facility] [place] [address] [place] [address] Electrocardiograph Report Signed Patient: Nathan Martin MR#: [id number] : 1955 Acct:[id number] Age/Sex: 67 / M ADM Date: 09/17/22 Loc: ER Room: Type: [facility] ER Attending Dr: Ordering Provider: Elicia Malone Jr, MD Date of Service: 09/17/22 ECG/ECG 12 lead ECG: Abdominal Pain Copies to: Test Reason : Blood Pressure : / mmHG Vent. Rate : 059 BPM Atrial Rate : 059 BPM P-R Int : 202 ms QRS Dur : 092 ms QT Int : 410 ms P-R-T Axes : 019 059 054 degrees QTc Int : 405 ms Sinus bradycardia Otherwise normal ECG When compared with ECG of 02-AUG-2021 06:27, No significant change was found Although rate has decreased Confirmed by ELICIA MALONE MD ([id number]) on 09/17/2022 6:57:59 AM Referred By: Electronically Signed By:ELICIA MALONE MD Transcribed By: MUS Signed By Elicia Malone Jr, MD 05 /21/23 0658 [facility] Eosinophils Auto (Bld) [#/Vo l]Ordered By: Elicia Malone on 09-17-2022 Eosinophils (Bld) [#/Vol] 0.3 10*3/uL 0.0-0.45 [facility] Eosinophils/100 WBC Auto (Bl d)Ordered By: Elicia Malone on 09-17-2022 Eosinophils/100 WBC (Bld) 2.7 % . [facility] Erythrocyte distribution wid th Auto (RBC) [Ratio]Ordered By: Elicia Malone on 09-17-2022 Erythrocyte distribution width (RBC) [Ratio] 18.7 % 12.0-14.8 [facility] Globulin Calc (S) [Mass/Vol] Ordered By: Elicia Malone on 09-17-2022 Globulin (S) [Mass/Vol] 3.1 g/dL F [facility] Glucose [Mass/volume] in Ser um or PlasmaOrdered By: Elicia Malone on 09-17-2022 Glucose [Mass/Vol] 99 mg/dL 70-[address] [facility] Comment on above: ADA recommended refe rence rangeRandom Glucose Reference Range is dependent on time and content of last meal. Glucose of more than 200 mg/dL in a nonstressed, ambulatory subject supports the diagnosis of Diabetes Mellitus. Hematocrit Auto (Bld) [Volum e fraction]Ordered By: Elicia Malone on 09-17-2022 Hematocrit (Bld) [Volume fraction] 48.9 % 38.8-50.0 [facility] Hemoglobin [Mass/volume] in BloodOrdered By: Elicia Malone on 09-17-2022 Hemoglobin (Bld) [Mass/Vol] 16.5 g/dL 13.0-17.0 [facility] Ketones Auto test strip (U) [Mass/Vol]Ordered By: Elicia Malone on 09-17-2022 Ketones (U) [Mass/Vol] Negative Negative [facility] - UrinalysisOrder ed By: Elicia Malone on 09-17-2022 Hyaline casts LM Ql (Urine sed) 0-8 [LPF] 0-8 [facility] Leukocytes [#/volume] correc emperatriz for nucleated erythrocytes in Blood by Automated counOrdered By: Elicia Malone on 05-21-2023 WBC corrected for nucl RBC Auto (Bld) [#/Vol] 9.5 10*3/uL 4.1-10.5 [facility] Lymphocytes Auto (Bld) [#/Vo l]Ordered By: Elicia Malone on 09-17-2022 Lymphocytes (Bld) [#/Vol] 1.8 10*3/uL 1.00-4.8 [facility] Lymphocytes/100 WBC Auto (Bl d)Ordered By: Elicia Malone on 09-17-2022 Lymphocytes/100 WBC (Bld) 19.3 % . [facility] MCH Auto (RBC) [Entitic mass ]Ordered By: Elicia Malone on 09-17-2022 MCH (RBC) [Entitic mass] 28.4 pg 27.5-35.2 [facility] MCHC Auto (RBC) [Mass/Vol]Or dered By: Elicia Malone on 09-17-2022 MCHC (RBC) [Mass/Vol] 33.7 g/dL 32.5-35.6 [facility] MCV Auto (RBC) [Entitic vol] Ordered By: Elicia Malone on 09-17-2022 MCV (RBC) [Entitic vol] 84.3 fL 83.5-[address] [facility] Monocytes Auto (Bld) [#/Vol] Ordered By: Elicia Malone on 09-17-2022 Monocytes (Bld) [#/Vol] 0.7 10*3/uL 0.0-0.8 [facility] Monocytes/100 WBC Auto (Bld) Ordered By: Elicia Malone on 09-17-2022 Monocytes/100 WBC (Bld) 7.9 % . [facility] Neutrophils Auto (Bld) [#/Vo l]Ordered By: Elicia Malone on 09-17-2022 Neutrophils (Bld) [#/Vol] 6.5 10*3/uL 1.8-7.7 [facility] Neutrophils/100 WBC Auto (Bl d)Ordered By: Elicia Malone on 09-17-2022 Neutrophils/100 WBC (Bld) 68.8 % . [facility] Nitrite Test strip Ql (U)Ord ered By: Elicia Malone on 09-17-2022 Nitrite Ql (U) Negative Negative [facility] No Panel InformationOrdered By: Elicia Malone on 09-17-2022 D-Dimer Quantitative (PE/DVT) < 200 ng/mL 0-243 [facility] Comment on above: The reference range for D-dimer is <243 ng/mL D-dimer units.D-dimer results must be used in conjunction with a clinicalpretest probability (PTP) assessment model for deep veinthrombosis (DVT) and pulmonary embolism (PE). Results <230ng/mL d-dimer units can be used as a negative predictor inpatients with low or moderate probability for DVT/PE.Results above the exclusion threshold of 230 ng/ml D-dimerunits for DVT/PE may indicate the need for furtherdiagnostic testing.D-Dimer can be increased in hospitalized patients due toco-morbid conditions. Estimated GFR (CKD-EPI) > 60.0 mL/Min [facility] Creatinine Clearance (Chem 66.66 [facility] Nucleated erythrocytes [Pres ence] in Blood by Automated countOrdered By: Elicia Malone on 09-17-2022 Nucleated RBC Auto Ql (Bld) 0.1 /100{WBC} 0-0.5 [facility] Platelet mean volume Auto (B ld) [Entitic vol]Ordered By: Elicia Malone on 09-17-2022 Platelet mean volume (Bld) [Entitic vol] 8.4 fL 6.6-10.1 [facility] Platelets Auto (Bld) [#/Vol] Ordered By: Elicia Malone on 09-17-2022 Platelets (Bld) [#/Vol] 212 10*3/uL 150-450 [facility] Potassium [Moles/volume] in Serum or PlasmaOrdered By: Elicia Malone on 09-17-2022 Potassium [Moles/Vol] 4.3 mmol/L 3.5-5.1 [facility] Protein Auto test strip (U) [Mass/Vol]Ordered By: Elicia Malone on 09-17-2022 Protein (U) [Mass/Vol] Negative Negative [facility] Protein [Mass/volume] in Ser um or PlasmaOrdered By: Elicia Malone on 09-17-2022 Protein [Mass/Vol] 7.6 g/dL 6.4-8.[address] [facility] RBC Auto (Bld) [#/Vol]Ordere d By: Elicai Malone on 09-17-2022 RBC (Bld) [#/Vol] 5.80 10*6/uL 3.90-5.60 [facility] Serum or plasma albumin/glob ulin mass ratioOrdered By: Elicia Malone on 09-17-2022 Albumin/Globulin [Mass ratio] 1.5 {ratio} [facility] Serum or plasma anion gap de terminationOrdered By: Elicia Malnoe on 09-17-2022 Anion gap [Moles/Vol] 13.2 mmol/L 6.0-15.0 [facility] Sodium [Moles/volume] in Ser um or PlasmaOrdered By: Elicia Malone on 09-17-2022 Sodium [Moles/Vol] 138 mmol/L 136-[address] [facility] Specific gravity Auto test s trip (U) [Rel density]Ordered By: Elicia Malone on 09-17-2022 Specific gravity (U) [Rel density] 1.007 1.001-1.03 0 [facility] Squamous epithelial cells de tection in urine sediment by light microscopyOrdered By: Elicia Malone on 09-17-2022 Epithelial cells.squamous LM Ql (Urine sed) None seen [HPF] 0-2 [facility] Troponin I High Sensitivityo n 09-17-2022 Troponin I High Sensitivity 4.4 pg/mL Normal 0.0-20.0 [facility] Comment on above: Result Comment: PERF ORMED BY: [place] [address] PATHOLOGIST NEGATIVE ASSEMBLER LAURYN LAGOS M.D. Performed By: #### P SATOTAL #### [address] Troponin I.cardiac [Mass/vol ume] in Serum or Plasma by Detection limit <= 0.01 ng/Ordered By: Elicia Malone on 09-17-2022 Troponin I.cardiac DL <= 0.01 ng/mL [Mass/Vol] 4.4 pg/mL 0.0-20.0 [facility] Urea nitrogen [Mass/volume] in Serum or PlasmaOrdered By: Elicia Malone on 09-17-2022 Urea nitrogen [Mass/Vol] 17 mg/dL 7-25 [facility] Urine bacteria detection by automated methodOrdered By: Elicia Malone on 09-17-2022 Bacteria Auto Ql (U) None seen None Seen [facility] Urine clarity by refractomet ry automatedOrdered By: Elicia Malone on 09-17-2022 Clarity Refractometry automated (U) Clear Clear [facility] Urine glucose measurement by automated test strip (mass/volume)Ordered By: Elicia Malone on 09-17-2022 Glucose Auto test strip (U) [Mass/Vol] Normal mg/dL Normal [facility] Urine hemoglobin detection b y automated test stripOrdered By: Elicia Malone on 09-17-2022 Hemoglobin Auto test strip Ql (U) Trace Negative [facility] Urine leukocyte esterase det ection by automated test stripOrdered By: Elicia Malone on 09-17-2022 Leukocyte esterase Auto test strip Ql (U) 2+ Negative [facility] Urobilinogen Auto test strip (U) [Mass/Vol]Ordered By: Elicia Malone on 09-17-2022 Urobilinogen (U) [Mass/Vol] Normal mg/dL Normal [facility] WBC Auto (Bld) [#/Vol]Ordere d By: Elicia Malone on 09-17-2022 WBC (Bld) [#/Vol] 9.5 10*3/uL 4.1-10.[address] [facility] XR chest 2V*on 09-17-2022 XR chest 2V* [place] [address] XRay Report Signed Patient: Nathan Martin MR#: [id number] : 1955 Acct:[id number] Age/Sex: 67 / M ADM Date: 09/17/22 Loc: ER Room: Type: [facility] ER Attending Dr: Copies to: Elicia Malone Jr, MD Ordering Provider: Elicia Malone Jr, MD Date of Service: 09/17/22 XR/XR chest 2V*: thoracic back pain Plain film chest 2 view HISTORY: Upper back pain. Cough. COMPARISON: 02/20/2021 FINDINGS: SUPPORT DEVICES: None POSTSURGICAL CHANGES: None HEART: Within normal limits PULMONARY KAYLEEN: Within normal limits MEDIASTINUM: Unremarkable LUNGS AND PLEURA: No acute lung process, pleural effusion or pneumothorax identified. BONY STRUCTURES: Thoracic hyperostosis. ADDITIONAL FINDINGS None XR/XR chest 2V* IMPRESSION: No acute process. Impression dictated by: Sumanth Ulloa M.D.09/17/2022 9:08 AM Dictation Location: [place] [address] Transcribed By: [facility] 09/17/22907 Dictated By: Sumanth Ulloa DO 09/17/22907 Signed By: 09/17/22907 Normal [facility] pH Auto test strip (U)Ordere d By: Elicia Malone on 09-17-2022 pH (U) 5.5 [pH] 5.0-9.0 [facility] Consultation Noteon 09-15-19 Consultation Note [id number]:127 Normal [facility] Screenson 08-31-2022 Screens [id number]:127 Normal [facility] Ambulatory Visit Summaryon 0 08-30-2022 Ambulatory Visit Summary NATHAN MARTIN :1955 Visit Date:08/30/2022 Ambulatory Visit Instructions Your Diagnosis BPH with obstruction/lower urinary tract symptoms Kidney stones UTI (urinary tract infection) Tests Performed Urnls Dip Stick Auto w/o Microscopy POC 89314 XR Abdomen 1 View -- Results Pending -- Please visit your patient portal for your results or contact your primary care physician. Your Care Team Attending Physician - VERNA LA, Edward Worrell Primary Care Physician - [facility], . This Is Your Medications List sulfamethoxazole-trimethop rim (Bactrim D.S. 800 mg-160 mg Tab) tamsulosin (tamsulosin 0.4 mg Cap) Contact prescribing physician if questions or concerns aspirin atorvastatin (atorvastatin 40 mg Tab) lisinopril (lisinopril 40 mg Tab) naproxen (naproxen 500 mg Tab) omeprazole (omeprazole 40 mg Cap-DR) Procedures Performed Cystoscopic removal of ureteric stent (08/23/2021), Cystoscopic insertion of ureteric stent (08/02/2021), TURP - Transurethral resection of prostate (02/17/2021), Cystoscope (01/11/2021), Cystoscopy (08/12/2019), CE - Cataract extraction, Cholecystectomy, Colonoscopy, Cystoscopy, Cystoscopy, Hemorrhoidectomy, Open repair of inguinal hernia. Discharge Vitals Height 174 cm Height 69 in Weight 85 kg Weight 187 lb BMI 28.08 What to do next Scheduled Follow-Up Appointments Sunday 10:15 AM EDT With: VERNA LA, Edward Worrell Where: [facility] Laura Whaley [facility] Patient Educationon 08-31-19 Patient Education Urology Kidney Stones Kidney stones are rock-like masses that form inside of the kidneys. Kidneys are organs that make pee (urine). A kidney stone may move into other parts of the urinary tract, including: ? The tubes that connect the kidneys to the bladder (ureters). ? The bladder. ? The tube that carries urine out of the body (urethra). Kidney stones can cause very bad pain and can block the flow of pee. The stone usually leaves your body (passes) through your pee. You may need to have a doctor take out the stone. What are the causes? Kidney stones may be caused by: ? A condition in which certain glands make too much parathyroid hormone (primary hyperparathyroidism). ? A buildup of a type of crystals in the bladder made of a chemical called uric acid. The body makes uric acid when you eat certain foods. ? Narrowing (stricture) of one or both of the ureters. ? A kidney blockage that you were born with. ? Past surgery on the kidney or the ureters, such as gastric bypass surgery. What increases the risk? You are more likely to develop this condition if: ? You have had a kidney stone in the past. ? You have a family history of kidney stones. ? You do not drink enough water. ? You eat a diet that is high in protein, salt (sodium), or sugar. ? You are overweight or very overweight (obese). What are the signs or symptoms? Symptoms of a kidney stone may include: ? Pain in the side of the belly, right below the ribs (flank pain). Pain usually spreads (radiates) to the groin. ? Needing to pee often or right away (urgently). ? Pain when going pee (urinating). ? Blood in your pee (hematuria). ? Feeling like you may vomit (nauseous). ? Vomiting. ? Fever and chills. How is this treated? Treatment depends on the size, location, and makeup of the kidney stones. The stones will often pass out of the body through peeing. You may need to: ? Drink more fluid to help pass the stone. In some cases, you may be given fluids through an IV tube put into one of your veins at the hospital. ? Take medicine for pain. ? Make changes in your diet to help keep kidney stones from coming back. Sometimes, medical procedures are needed to remove a kidney stone. This may involve: ? A procedure to break up kidney stones using a beam of light (laser) or shock waves. ? Surgery to remove the kidney stones. Follow these instructions at home: Medicines ? Take bjye-tfn-xjveuon and prescription medicines only as told by your doctor. ? Ask your doctor if the medicine prescribed to you requires you to avoid driving or using heavy machinery. Eating and drinking ? Drink enough fluid to keep your pee pale yellow. You may be told to drink at least 8?10 glasses of water each day. This will help you pass the stone. ? If told by your doctor, change your diet. This may include: ? Limiting how much salt you eat. ? Eating more fruits and vegetables. ? Limiting how much meat, poultry, fish, and eggs you eat. ? Follow instructions from your doctor about eating or drinking restrictions. General instructions ? Collect pee samples as told by your doctor. You may need to collect a pee sample: ? 24 hours after a stone comes out. ? 8?12 weeks after a stone comes out, and every 6?12 months after that. ? Strain your pee every time you pee (urinate), for as long as told. Use the strainer that your doctor recommends. ? Do not throw out the stone. Keep it so that it can be tested by your doctor. ? Keep all follow-up visits as told by your doctor. This is important. You may need follow-up tests. How is this prevented? To prevent another kidney stone: ? Drink enough fluid to keep your pee pale yellow. This is the best way to prevent kidney stones. ? Eat healthy foods. ? Avoid certain foods as told by your doctor. You may be told to eat less protein. ? Stay at a healthy weight. Where to find more information ? National Kidney Foundation (NKF): www.kidney.org ? [employer] (UCF): www.urologyhealth.org Contact a doctor if: ? You have pain that gets worse or does not get better with medicine. Get help right away if: ? You have a fever or chills. ? You get very bad pain. ? You get new pain in your belly (abdomen). ? You pass out (faint). ? You cannot pee. Summary ? Kidney stones are rock-like masses that form inside of the kidneys. ? Kidney stones can cause very bad pain and can block the flow of pee. ? The stones will often pass out of the body through peeing. ? Drink enough fluid to keep your pee pale yellow. This information is not intended to replace advice given to you by your health care provider. Make sure you discuss any questions you have with your health care provider. Document Revised: 12/19/2021 Document Reviewed: 12/19/2021 [employer] Patient Education ? 2022 [employer] [facility] Urology Office/Clinic Noteon 08-30-2022 Urology Office/Clinic Note Chief Complaint Pt is here for 6 month w/ KUB HPI Staff Nathan is a 67 y.o. male here for 6 month follow up w/ KUB. Previous Dx: asymptomatic microscopic hematuria, BPH w/ obstruction/lower urinary tract symptoms, dysuria, gross hematuria, history of kidney stones, nocturia, post void dribbling, prostatitis, left renal stone. S/P cysto/stent removal done on 08/23/21, cysto/stent done on 08/02/21, TURP done on 02/17/21, cystoscopy done on 01/11/21. Current PSA 3.440 done on 03/06/22. Pt does not have new KUB or PSA Dysuria: denies Incomplete bladder emptying: denies Hematuria: denies Frequency: denies Urgency: denies Nocturia: 1x a night Stream: steady stream Leaking: denies Post void dripping: denies Wearing pads/ Depends: wears depends on occasion for safety Urge incontinence: denies Stress incontinence: denies Incontinence without Sensory Awareness: denies Abdominal pain: denies Flank pain: denies Sexual complaints: _ History of Present Illness I have reviewed and verified the staff HPI to be accurate for this encounter. Review of Systems PHQ Score Initial Depression Screen Score: 0 ROS - Provider Constitutional: denies weight loss, denies hot flashes. Eyes: denies eye problems. Gastrointestinal: denies nausea, denies vomiting. Cardiovascular: denies chest pain or angina. Integumentary: no dryness Musculoskeletal: denies musculoskeletal symptoms. ENMT: denies otolaryngeal symptoms. Respiratory: no shortness of breath. Heme/Lymph: denies easy bleeding tendency, denies easy bruising tendency. Psychiatric: no confusion, no anxiety. Genitourinary: denies dysuria, denies hematuria, denies discharge, denies urinary frequency, denies urinary hesitancy, denies nocturia, denies incontinence, denies genital sores, denies decreased libido, and denies erectile dysfunction. Physical Exam Vitals & Measurements HT: 69 in HT: 174 cm WT: 85 kg WT: 187 lb BMI: 28.08 General Appearance: alert, no distress, well nourished, well developed male. Genitourinary: normal scrotum, normal testes, normal urethra, normal epididymis, normal vas deferens/spermatic cord. Flank Pain: none. Bladder: nonpalpable. Assessment/Plan 1. BPH with obstruction/lower urinary tract symptoms (N40.1: Benign prostatic hyperplasia with lower urinary tract symptoms) IPSS 6 QOL 2 s/p TURP done 02/17/21. PSA 3.440 done on 03/06/22. Pt did not get a recent PSA. Overall pt states that the has no urinary complaints. Pt stopped his Flomax. Discussed with pt to start his Flomax again BID. 2. Kidney stones (N20.0: Calculus of kidney) KUB done 02/13/22 shows 3 mm left inferior pole kidney. Pt did not get a recent KUB. 3. UTI (urinary tract infection) (N39.0: Urinary tract infection, site not specified) UA today show POS nitrates and Small Leuks Pt denies any sxs of a UTI. Will start Bactrim DS BID for 3 weeks. When he finishes his ABX he will get a PSA draw. he voiced concerns with losing his memory recently. he will be referred to neurology. Follow-up With When Contact Information VERNA LA, BALJIT Romero In 2 months 10/30/2022 EDT [facility] [address], [place] [address] [phone] Additional Instructions: KUB, PSA Patient Education Kidney Stones, [id number] I, Brandi Torre, personally scribed for Dr. Calloway on 08/30/2022 13:53:28. . Documentation recorded by the scribe, Brandi Torre, accurately reflects the services(s) I performed and decisions made by me. Problem List/Past Medical History Ongoing Abdominal pain Arthritis Asymptomatic microscopic hematuria BMI 29.0-29.9,adult BPH with obstruction/lower urinary tract symptoms Depression Diabetes Dysuria Epilepsy Gross hematuria H/O psychiatric care Head injury Headaches due to old head trauma History of kidney stones Hypertension Kidney stones Nocturia Post-void dribbling Prostatitis Stroke UTI (urinary tract infection) Historical Left flank pain Left renal stone LLQ pain Procedure/Surgical History Cystoscopic removal of ureteric stent (08/23/2021), Cystoscopic insertion of ureteric stent (08/02/2021), TURP - Transurethral resection of prostate (02/17/2021), Cystoscope (01/11/2021), Cystoscopy (08/12/2019), CE - Cataract extraction, Cholecystectomy, Colonoscopy, Cystoscopy, Cystoscopy, Hemorrhoidectomy, Open repair of inguinal hernia. Medications aspirin atorvastatin 40 mg Tab, Oral, Daily lisinopril 40 mg Tab, 40 mg= 1 tab(s), Oral, Daily naproxen 500 mg Tab, Oral, BID omeprazole 40 mg Cap-DR, 40 mg= 1 cap(s), Oral, Daily tamsulosin 0.4 mg Cap, 0.4 mg= 1 cap(s), Oral, Daily, 3 refills Allergies Bee Stings (Swelling) Grapefruit (Swelling) Social History Alcohol - Denies Alcohol Use, 06/04/2019 Substance Abuse - Denies Substance Abuse, 06/04/2019 Tobacco - Denies Tobacco Use, 06/04/2019 5-9 cigarettes (between 05/03 to 1 (more content not included)... Normal [facility] Comment on above: Result Comment: Elec tronically Signed By: Edward CALLOWAY MD R\.br\Date and Time Signed: 08/30/22 13:55 EDT\.br\Electronically Co-Signed By: Brandi Torre MA\.br\Date and Time Co-Signed: 08/30/22 13:53 EDT Hep C Ab wRfx to Qnt PCRon 0 08-21-2022 Hepatitis C Virus Antibody Non-Reactive Normal Non Reactive [facility] Comment on above: Performed By: #### F ER, FE and TIBC, CBC #### [facility] [address] [place] [address] Interpretation Hepatitis C Normal . [facility] Comment on above: Result Comment: Not infected with HCV unless early or acute infection is suspected (which may be delayed in an immunocompromised individual), or other evidence exists to indicate HCV infection. Performed at: [facility] [address] [id number] Concrete Puddler: Tavo Holcomb PhD, Phone: [phone] PERFORMED BY: [place] [address] PATHOLOGIST NEGATIVE ASSEMBLER LAURYN LAGOS M.D. Performed By: #### F ER, FE and TIBC, CBC #### [facility] [address] [place] [address] Hepatitis C virus IgG Ab [Pr esence] in Serum or Plasma by ImmunoassayOrdered By: Boris Zayas on 08-21-2022 HCV IgG IA Ql Non-Reactive Non Reactive [facility] No Panel InformationOrdered By: Boris Zayas on 08-21-2022 Hepatitis C Interpretation See comment . [facility] Comment on above: Not infected with HC V unless early or acute infection issuspected (which may be delayed in an immunocompromisedindividual), or other evidence exists to indicate HCVinfection.Performed at: [facility] [id number] Director: Tavo Holcomb PhD, Phone: [phone] Hepatitis C RNA Quantitative N/A [facility] CT facial bones wo conon CT facial bones wo con [facility] Main [place] [address] [place] [address] CT Scan Report Signed Patient: Nathan Martin MR#: [id number] : 1955 Acct:[id number] Age/Sex: 67 / M ADM Date: 08/07/22 Loc: ER Room: Type: [facility] ER Attending Dr: Copies to: Edward Sandoval DO Ordering Provider: Edward Sandoval DO Date of Service: 08/07/22 CT/CT head/brain wo con: head inj, mccarthy/nasal pain ([id number]) CT/CT facial bones wo con: PAIN CT BRAIN/FACIAL BONES WITHOUT CONTRAST: CLINICAL HISTORY: Head injury, headache, nose pain COMPARISON: CT brain 03/13/2018 TECHNIQUE: Contiguous axial unenhanced images were obtained through the brain and facial bones. This CT exam was performed using one or more following dose reduction techniques: Automated exposure control, adjustment of the mA and/or kV according to patient size, or use of iterative reconstruction technique. FINDINGS: Brain: There is no evidence of midline shift, intra or extra-axial fluid collection, hemorrhage or CT evidence of stroke. Cortical atrophy with chronic microvascular ischemic changes. Posterior fossa appears unremarkable. The surrounding soft tissues are normal. Facial Bones No facial bone fracture. No nasal bone fracture. Orbital fracture. Mild sinus disease. Nasal septum is relatively midline. No bony destruction. Mandible appears intact. No soft tissue swelling. No lymphadenopathy. Orbital contents appear intact. Nasopharynx appears grossly unremarkable. CT/CT head/brain wo con IMPRESSION: NO ACUTE FACIAL BONE FRACTURE. NO ACUTE INTRACRANIAL ABNORMALITY. Impression dictated by: Eulogio Best Jr., D.OBabak08/07/2022 10:11 AM Dictation Location: [place] [address] Transcribed By: [facility] 08/07/22 1011 Dictated By: Eulogio Best Jr, DO 08/07/22 0955 Signed By: 08/07/22 1011 Normal [facility] COVID CepheidOrdered By: Letty Fregoso on 07-14-2022 SARS-CoV-2 (COVID-19) Ab IA Ql Negative Negative [facility] Comment on above: This is a duplicate [facility] Xpert Xpress CoV-2/Flu/RSV Plus RNA by RT-PCR result to be used for statistical tracking purpose only. SARS-CoV-2 (COVID-19) RNA PATRICA+probe Ql (Unsp spec) [facility] COVID-19 SOFIAOrdered By: Leydi Fregoso on 07-14-2022 SARS-CoV+SARS-CoV-2 (COVID-19) Ag IA.rapid Ql (Resp) Negative Negative [facility] Comment on above: This is a duplicate Alejandra SARS Antigen (ALFA) result to be used for statistical tracking purpose only. Alkaline phosphatase [Enzyma tic activity/volume] in Serum or PlasmaOrdered By: Boris Zayas on 06-23-2022 ALP [Catalytic activity/Vol] 35 U/L 32-92 [facility] Aspartate aminotransferase [ Enzymatic activity/volume] in Serum or PlasmaOrdered By: Boris Zayas on 06-23-2022 AST [Catalytic activity/Vol] 24 U/L 10-42 [facility] Basophils Auto (Bld) [#/Vol] Ordered By: Boris Zayas on 06-23-2022 Basophils (Bld) [#/Vol] 0.2 10*3/uL 0.0-0.2 [facility] Basophils/100 WBC Auto (Bld) Ordered By: Boris Zayas on 06-23-2022 Basophils/100 WBC (Bld) 3.1 % . [facility] Bilirubin.total [Mass/volume ] in Serum or PlasmaOrdered By: Boris Zayas on 06-23-2022 Bilirubin [Mass/Vol] 0.3 mg/dL 0.3-1.2 [facility] Body fluid albumin measureme nt (mass/volume)Ordered By: Boris Zayas on 06-23-2022 Albumin (Body fld) [Mass/Vol] 3.7 g/dL 3.2-5.[address] [facility] [address] biopsyOrdered By: Boris Zayas on 06-23-2022 Transferrin [Mass/Vol] 318 mg/dL 180-380 [facility] Calcium [Mass/volume] in Ser um or PlasmaOrdered By: Boris Zayas on 06-23-2022 Calcium [Mass/Vol] 9.6 mg/dL 8.2-10.[address] [facility] Carbon dioxide, total [Moles /volume] in Serum or PlasmaOrdered By: Boris Zayas on 06-23-2022 CO2 [Moles/Vol] 23.8 mmol/L 22.0-30.0 [facility] Chloride [Moles/volume] in S prasanth or PlasmaOrdered By: Boris Zayas on 06-23-2022 Chloride [Moles/Vol] 106 mmol/L 95-114 [facility] Cholesterol [Mass/volume] in Serum or PlasmaOrdered By: Boris Zayas on 06-23-2022 Cholesterol [Mass/Vol] 91 mg/dL 140-200 [facility] Comment on above: Chol less than 200 m g/dl low riskChol 201-239 mg/dl borderline riskChol 240 mg/dl and greater high risk Cholesterol in LDL Calc [Mas s/Vol]Ordered By: Boris Zayas on 06-23-2022 Cholesterol in LDL [Mass/Vol] 42 mg/dL 0-100 [facility] Comment on above: LDL ATP III CLASSIFI CATIONLDL less than 100 mg/dL OptimalLDL 100-129 mg/dL Near or above optimalLDL 130-159 mg/dL Borderline highLDL 160-189 mg/dL HighLDL greater than 189 mg/dL Very high Cholesterol in VLDL Calc [Ma ss/Vol]Ordered By: Boris Zayas on 06-23-2022 Cholesterol in VLDL [Mass/Vol] 10 mg/dL [facility] Creatinine and Glomerular fi ltration rate.predicted panel (S/P/Bld)Ordered By: Boris Zayas on 06-23-2022 Creatinine [Mass/Vol] 0.97 mg/dL 0.64-1.27 [facility] Eosinophils Auto (Bld) [#/Vo l]Ordered By: Boris Zayas on 06-23-2022 Eosinophils (Bld) [#/Vol] 0.1 10*3/uL 0.0-0.45 [facility] Eosinophils/100 WBC Auto (Bl d)Ordered By: Boris Zayas on 06-23-2022 Eosinophils/100 WBC (Bld) 2.7 % . [facility] Erythrocyte distribution wid th Auto (RBC) [Ratio]Ordered By: Boris Zayas on 06-23-2022 Erythrocyte distribution width (RBC) [Ratio] 18.4 % 12.0-14.8 [facility] Estimated glomerular filtrat ion rate (GFR) non- AmericanOrdered By: Boris Zayas on 06-23-2022 GFR/1.73 sq M.predicted among non-blacks MDRD (S/P/Bld) [Vol rate/Area] > 60 mL/Min [facility] Ferritin [Mass/volume] in Se rum or PlasmaOrdered By: Boris Zayas on 06-23-2022 Ferritin [Mass/Vol] 10.4 ng/mL 23.9-336.2 [facility] Globulin Calc (S) [Mass/Vol] Ordered By: Boris Zayas on 06-23-2022 Globulin (S) [Mass/Vol] 2.7 g/dL [facility] Glucose [Mass/volume] in Ser um or PlasmaOrdered By: Boris Zayas on 06-23-2022 Glucose [Mass/Vol] 130 mg/dL 70-[address] [facility] Comment on above: ADA recommended refe rence rangeRandom Glucose Reference Range is dependent on time and content of last meal. Glucose of more than 200 mg/dL in a nonstressed, ambulatory subject supports the diagnosis of Diabetes Mellitus. Hematocrit Auto (Bld) [Volum e fraction]Ordered By: Boris Zayas on 06-23-2022 Hematocrit (Bld) [Volume fraction] 44.7 % 38.8-50.0 [facility] Hemoglobin [Mass/volume] in BloodOrdered By: Boris Zayas on 06-23-2022 Hemoglobin (Bld) [Mass/Vol] 14.4 g/dL 13.0-17.0 [facility] Iron [Mass/volume] in Serum or PlasmaOrdered By: Boris Zayas on 06-23-2022 Iron [Mass/Vol] 102 ug/dL 40-160 [facility] Iron binding capacity [Mass/ volume] in Serum or PlasmaOrdered By: Boris Zayas on 06-23-2022 Iron binding capacity [Mass/Vol] 445 ug/dL 255-450 [facility] Iron saturation [Mass Fracti on] in Serum or PlasmaOrdered By: Boris Zayas on 06-23-2022 Iron saturation [Mass fraction] 22.9 % 20-50 [facility] Leukocytes [#/volume] correc emperatriz for nucleated erythrocytes in Blood by Automated counOrdered By: Boris Zayas on 06-23-2022 WBC corrected for nucl RBC Auto (Bld) [#/Vol] 5.4 10*3/uL 4.1-10.5 [facility] Lymphocytes Auto (Bld) [#/Vo l]Ordered By: Boris Zayas on 06-23-2022 Lymphocytes (Bld) [#/Vol] 1.2 10*3/uL 1.00-4.8 [facility] Lymphocytes/100 WBC Auto (Bl d)Ordered By: Boris Zayas on 06-23-2022 Lymphocytes/100 WBC (Bld) 22.8 % . [facility] MCH Auto (RBC) [Entitic mass ]Ordered By: Boris Zayas on 06-23-2022 MCH (RBC) [Entitic mass] 25.4 pg 27.5-35.2 [facility] MCHC Auto (RBC) [Mass/Vol]Or dered By: Boris Zayas on 06-23-2022 MCHC (RBC) [Mass/Vol] 32.2 g/dL 32.5-35.6 [facility] MCV Auto (RBC) [Entitic vol] Ordered By: Boris Zayas on 06-23-2022 MCV (RBC) [Entitic vol] 79.1 fL 83.5-[address] [facility] Monocytes Auto (Bld) [#/Vol] Ordered By: Boris Zayas on 06-23-2022 Monocytes (Bld) [#/Vol] 0.4 10*3/uL 0.0-0.8 [facility] Monocytes/100 WBC Auto (Bld) Ordered By: Boris Zayas on 06-23-2022 Monocytes/100 WBC (Bld) 8.2 % . [facility] Neutrophils Auto (Bld) [#/Vo l]Ordered By: Boris Zayas on 06-23-2022 Neutrophils (Bld) [#/Vol] 3.4 10*3/uL 1.8-7.7 [facility] Neutrophils/100 WBC Auto (Bl d)Ordered By: Boris Zayas on 06-23-2022 Neutrophils/100 WBC (Bld) 63.2 % . [facility] No Panel InformationOrdered By: Boris Zayas on 06-23-2022 Estimated GFR () > 60 mL/Min [facility] Comment on above: GFR estimated refere nce range: According to KDOQI guidelines, <60 ml/min/1.73m2 is sufficient to diagnose a patient with chronic kidney disease. Pharmacy Creatinine Clearance (Chem N/A [facility] Nucleated erythrocytes [Pres ence] in Blood by Automated countOrdered By: Boris Zayas on 06-23-2022 Nucleated RBC Auto Ql (Bld) 0.2 /100{WBC} 0-0.5 [facility] Platelet mean volume Auto (B ld) [Entitic vol]Ordered By: Boris Zayas on 06-23-2022 Platelet mean volume (Bld) [Entitic vol] 9.1 fL 6.6-10.1 [facility] Platelets Auto (Bld) [#/Vol] Ordered By: Boris Zayas on 06-23-2022 Platelets (Bld) [#/Vol] 185 10*3/uL 150-450 [facility] Potassium [Moles/volume] in Serum or PlasmaOrdered By: Boris Zayas on 06-23-2022 Potassium [Moles/Vol] 4.5 mmol/L 3.5-5.1 [facility] Protein [Mass/volume] in Ser um or PlasmaOrdered By: Boris Zayas on 06-23-2022 Protein [Mass/Vol] 6.4 g/dL 6.1-7.[address] [facility] RBC Auto (Bld) [#/Vol]Ordere d By: Boris Zayas on 06-23-2022 RBC (Bld) [#/Vol] 5.66 10*6/uL 3.90-5.60 [facility] Serum or plasma alanine grayson otransferase measurement without P-5'-P (enzymatic activiOrdered By: Boris Zayas on 06-23-2022 ALT No additional P-5'-P [Catalytic activity/Vol] 23 U/L 10-60 [facility] Serum or plasma albumin/glob ulin mass ratioOrdered By: Boris Zayas on 06-23-2022 Albumin/Globulin [Mass ratio] 1.4 {ratio} [facility] Serum or plasma anion gap de terminationOrdered By: Boris Zayas on 06-23-2022 Anion gap [Moles/Vol] 12.7 mmol/L 6.0-15.0 [facility] Serum or plasma high density lipoprotein (HDL) cholesterol measurementOrdered By: Boris Zayas on 06-23-2022 Cholesterol in HDL [Mass/Vol] 39 mg/dL 29-71 [facility] Comment on above: HDL CHOL ATP-III CLA SSIFICATION Cardiovascular RiskHDL > or equal to 60 mg/dL LOWHDL < 40 mg/dL HIGH Serum or plasma total choles terol/high density lipoprotein (HDL) cholesterol mass ratOrdered By: Boris Zayas on 06-23-2022 Cholesterol.total/Choles terol in HDL [Mass ratio] 2.3 {ratio} <5.0 [facility] Sodium [Moles/volume] in Ser um or PlasmaOrdered By: Boris Zayas on 06-23-2022 Sodium [Moles/Vol] 138 mmol/L 136-[address] [facility] TSH DL <= 0.005 mIU/L QnOrde red By: Boris Zayas on 06-23-2022 TSH Qn 0.22 m[IU]/L 0.45-5.33 [facility] Thyroxine (T4) free [Mass/vo lume] in Serum or PlasmaOrdered By: Boris Zayas on 06-23-2022 Free T4 [Mass/Vol] 1.08 ng/dL 0.61-1.[address] [facility] Triglyceride [Mass/volume] i n Serum or PlasmaOrdered By: Boris Zayas on 06-23-2022 Triglyceride [Mass/Vol] 50 mg/dL 35-[address] [facility] Comment on above: TRIG ATP III CLASSIF ICATIONTRIG less than 150 mg/dL NormalTRIG 150-199 mg/dL Borderline highTRIG 200-500 mg/dL High TRIG greater than 500 mg/dL Very highStandard traceable to the Center for Disease Conrtrol and Prevention (CDC) test method. Urea nitrogen [Mass/volume] in Serum or PlasmaOrdered By: Boris Zayas on 06-23-2022 Urea nitrogen [Mass/Vol] 12 mg/dL 01-20 [facility] WBC Auto (Bld) [#/Vol]Ordere d By: Boris Zayas on 06-23-2022 WBC (Bld) [#/Vol] 5.4 10*3/uL 4.1-10.[address] [facility] No Panel InformationOrdered By: Edward Calloway on 03-06-2022 Prostate Specific Antigen Total 3.440 ng/mL 0.000-4.00 0 [facility] Covid-19 PCR (CVDTBH)on 01-28 SARS-CoV-2 (COVID-19) RNA PATRICA+probe Ql (Unsp spec) Not detected Normal NOT DETECTED [facility] Comment on above: Result Comment: This test is not yet approved or cleared by the [place] FDA. When there are no FDA-approved or cleared tests available, and other criteria are met, FDA can make tests available under an emergency access mechanism called an Emergency Use Authorization (EUA). The EUA for this test is supported by the [place] of Health and Human Service's (HHS's) declaration that circumstances exist to justify the emergency use of in vitro diagnostics for the detection and/or diagnosis of the virus that causes COVID-19. This EUA will remain in effect (meaning this test can be used) for the duration of the COVID-19 declaration justifying emergency of IVDs, unless it is terminated or revoked by FDA (after which the test may no longer be used). When diagnostic testing is negative, the possibility of a false negative should be considered in the context of a patient's recent exposures and the presence of clinical signs and symptoms consistent with SARS-CoV-2. Performed By: #### C VDTBH #### [facility] [address] [place] [address] [address] Jennifer Cunningham CBC AUTO DIFFon 02-03-2021 BASO # 0.1 103/ul Normal 0.0-0.1 [facility] Comment on above: Performed By: #### C BC #### [facility] [address] [place] [address] [address] Jennifer Cunningham Basophils/100 WBC (Bld) 1.6 % Normal 0.2-2.0 [facility] Comment on above: Performed By: #### C BC #### [facility] [address] [place] [address] Dr. Jennifer Cunningham EO # 0.5 103/ul Normal 0.0-0.7 [facility] Comment on above: Performed By: #### C BC #### [facility] [address] [place] [address] Dr. Jennifer Cunningham Eosinophils/100 WBC (Bld) 6.8 % Normal 0.9-7.0 [facility] Comment on above: Performed By: #### C BC #### [facility] [address] [place] [address] Dr. Jennifer Cunningham Erythrocyte distribution width (RBC) [Ratio] 13.9 % Normal 11.0-15.0 [facility] Comment on above: Performed By: #### C BC #### [facility] [address] [place] [address] Dr. Jennifer Cunningham Hematocrit (Bld) [Volume fraction] 48.1 % Normal 42.0-54.0 [facility] Comment on above: Performed By: #### C BC #### [facility] [address] [place] [address] Dr. Jennifer Cunningham Hemoglobin (Bld) [Mass/Vol] 16.2 g/dL Normal 14.0-18.0 [facility] Comment on above: Performed By: #### C BC #### [facility] [address] [place] [address] Dr. Jennifer Cunningham IG # 0.02 10e3/ul Normal 0.00-0.03 [facility] Comment on above: Performed By: #### C BC #### [facility] [address] [place] [address] Dr. Jennifer Cunningham IG % 0.3 % Normal 0.0-0.5 [facility] Comment on above: Performed By: #### C BC #### [facility] [address] [place] [address] Dr. Jennifer Cunningham LYMPH # 1.2 103/ul Normal 1.2-3.8 [facility] Comment on above: Performed By: #### C BC #### [facility] [address] [place] [address] Dr. Jennifer Cunningham Lymphocytes/100 WBC (Bld) 16.8 % Critically low 20.5-60.0 [facility] Comment on above: Performed By: #### C BC #### [facility] [address] [place] [address] Dr. Jennifer Cunningham MANUAL DIFF REQ NO Normal [facility] Comment on above: Performed By: #### C BC #### [facility] [address] [place] [address] Dr. Jennifer Cunningham MCH (RBC) [Entitic mass] 30.6 pg Normal 25.9-34.0 [facility] Comment on above: Performed By: #### C BC #### [facility] [address] [place] [address] Dr. Jennifer Cunningham MCHC (RBC) [Mass/Vol] 33.7 g/dL Normal 29.9-35.2 [facility] Comment on above: Performed By: #### C BC #### [facility] [address] [place] [address] Dr. Jennifer Cunningham MCV (RBC) [Entitic vol] 90.9 fL Normal 80.0-94.0 [facility] Comment on above: Performed By: #### C BC #### [facility] [address] [place] [address] Dr. Jennifer Cunningham MONO # 0.6 103/ul Normal 0.3-0.8 [facility] Comment on above: Performed By: #### C BC #### [facility] [address] [place] [address] Dr. Jennifer Cunningham Monocytes/100 WBC (Bld) 8.6 % Normal 1.7-12.0 [facility] Comment on above: Performed By: #### C BC #### [facility] [address] [place] [address] Dr. Jennifer Cunningham NEUT # 4.6 103/ul Normal 1.4-6.5 [facility] Comment on above: Performed By: #### C BC #### [facility] [address] [place] [address] Dr. Jennifer Cunninghma Neutrophils/100 WBC (Bld) 65.9 % Normal 43.0-75.0 [facility] Comment on above: Performed By: #### C BC #### [facility] [address] [place] [address] Dr. Jennifer Cunningham Platelet mean volume (Bld) [Entitic vol] 11.0 fL Normal 9.5-13.5 [facility] Comment on above: Performed By: #### C BC #### [facility] [address] [place] [address] Dr. Jennifer Cunningham PLT 180 103/ul Normal 150-450 [facility] Comment on above: Performed By: #### C BC #### [facility] [address] [place] [address] Dr. Jennifer Cunningham RBC 5.29 106/ul Normal 4.70-6.10 [facility] Comment on above: Performed By: #### C BC #### [facility] [address] [place] [address] Dr. Jennifer Cunningham WBC 7.0 103/ul Normal 4.0-11.0 [facility] Comment on above: Performed By: #### C BC #### [facility] [address] [place] [address] Dr. Jennifer Cunningham PROF CHEM 8 (BAS METB)on Anion gap [Moles/Vol] 12.8 mmol/L Normal [facility] Comment on above: Performed By: #### B MP #### [facility] [address] [address] [address] Jennifer Cunningham Calcium [Mass/Vol] 9.1 mg/dL Normal 8.4-10.2 [facility] Comment on above: Performed By: #### B MP #### [facility] [address] [place] [address] [address] Jennifer Cunningham Chloride [Moles/Vol] 107 mmol/L Normal 98-107 [facility] Comment on above: Performed By: #### B MP #### [facility] [address] [address] [address] Jennifer Cunningham CO2 [Moles/Vol] 24.2 mmol/L Normal 22.0-30.0 [facility] Comment on above: Performed By: #### B MP #### [facility] [address] [place] [address] Dr. Jennifer Cunningham Creatinine [Mass/Vol] 0.92 mg/dL Normal 0.66-1.25 [facility] Comment on above: Performed By: #### B MP #### [facility] [address] [place] [address] Dr. Jennifer Cunningham EGFR-AF GERMAN >60 Normal >=60 [facility] Comment on above: Performed By: #### B MP #### [facility] [address] [place] [address] Dr. Jennifer Cunningham EGFR-NON AF GERMAN >60 Normal >=60 [facility] Comment on above: Performed By: #### B MP #### [facility] [address] [address] [address] Jennifer Cunningham Glucose [Mass/Vol] 112 mg/dL Critically high 74-106 [facility] Comment on above: Performed By: #### B MP #### [facility] [address] [place] [address] Dr. Jennifer Cunningham Potassium [Moles/Vol] 4.0 mmol/L Normal 3.4-5.0 [facility] Comment on above: Performed By: #### B MP #### [facility] [address] [place] [address] Dr. Jennifer Cunningham Sodium [Moles/Vol] 140 mmol/L Normal 137-145 [facility] Comment on above: Performed By: #### B MP #### [facility] [address] [place] [address] Dr. Jennifer Cunningham Urea nitrogen [Mass/Vol] 13.0 mg/dL Normal 9.0-20.0 [facility] Comment on above: Performed By: #### B MP #### [facility] [address] [place] [address] Dr. Jennifer Cunningham Urea nitrogen/Creatinine [Mass ratio] 14.1 mg/mg Normal [facility] Comment on above: Performed By: #### B MP #### [facility] [address] [place] [address] Dr. Jennifer Cunningham PROTIMEon 02-03-2021 INR Coag (PPP) [Relative time] 0.98 {INR} Normal [facility] Comment on above: Performed By: #### P TT, PT #### [facility] [address] [place] [address] Dr. Jennifer Cunningham INR GUIDELINES SEE BELOW Normal [facility] Comment on above: Result Comment: MAX RED INR: 2.0 - 3.0 CONDITIONS NOT LISTED BELOW 2.5 - 3.5 FOR PROSTHETIC HEART VALVE REPLACEMENT 2.5 - 3.5 RECURRENT THROMBOSIS Performed By: #### P TT, PT #### [facility] [address] [place] [address] Dr. Jennifer Cunningham PT Coag (PPP) [Time] 10.6 s Normal 9.0-11.6 [facility] Comment on above: Performed By: #### P TT, PT #### [facility] [address] [place] [address] Dr. Jennifer Cunningham PTTon 02-03-2021 aPTT Coag (Bld) [Time] 28.0 s Normal 22.3-36.2 [facility] Comment on above: Performed By: #### P TT, PT #### [facility] [address] [place] [address] Dr. Jennifer Cunningham Vital Signs Date Time Vital Sign Value Performing Clinician Faci lity 06-27-2023 10:58-0500 Blood Pressure Location Edward CALLOWAY [facility] [facility] 06-27-2023 10:58-0500 Diastolic blood pressure 70 mm[Hg] Edward CALLOWAY [facility] 06-27-2023 10:58-0500 Heart rate 64 /min Edwardnitesh CALLOWAY [facility] 06-27-2023 10:58-0500 Systolic blood pressure 114 mm[Hg] Edward CALLOWAY [facility] 06-13-2023 13:46-0500 Body height 170.18 cm Services [employer] Work Phone: [facility] 06-13-2023 13:46-0500 Body temperature 96 [degF] Services [facility] Work Phone: [facility] 06-13-2023 13:46-0500 Body weight 86 kg Services [facility] Work Phone: [facility] 06-13-2023 13:46-0500 Diastolic blood pressure 64 mm[Hg] Services [facility] Work Phone: [facility] 06-13-2023 13:46-0500 Heart rate 89 /min Services [facility] Work Phone: [facility] 06-13-2023 13:46-0500 Respiratory rate 16 /min Services [facility] Work Phone: [facility] 06-13-2023 13:46-0500 SaO2% (BldA) [Mass fraction] 97 % Services [facility] Work Phone: [facility] 06-13-2023 13:46-0500 Systolic blood pressure 120 mm[Hg] Services [employer] Work Phone: [facility] 05-09-2023 01:06-0500 Diastolic blood pressure 74 mm[Hg] DO Boris Marquez Work Phone: [facility] 05-09-2023 01:06-0500 Heart rate 53 /min DO Boris Marquez Work Phone: [facility] 05-09-2023 01:06-0500 Respiratory rate 18 /min DO Boris Marquez Work Phone: [facility] 05-09-2023 01:06-0500 SaO2% (BldA) [Mass fraction] 96 % DO Boris Marquez Work Phone: [facility] 05-09-2023 01:06-0500 Systolic blood pressure 168 mm[Hg] DO Boris Marquez Work Phone: [facility] 05-08-2023 18:40-0500 Body temperature 98.3 [degF] DO Boris Marquez Work Phone: [facility] 05-08-2023 18:37-0500 Body height 170.18 cm DO Boris Marquez Work Phone: [facility] 05-08-2023 18:37-0500 Body weight 85.7 kg DO Boris Marquez Work Phone: [facility] 04-27-2023 20:30-0500 Body height 170.18 cm DO Boris Marquez Work Phone: [facility] 04-27-2023 20:30-0500 Body temperature 97.4 [degF] DO Boris Marquez Work Phone: [facility] 04-27-2023 20:30-0500 Body weight 86.95 kg DO Boris Marquez Work Phone: [facility] 04-27-2023 20:30-0500 Diastolic blood pressure 71 mm[Hg] DO Boris Marquez Work Phone: [facility] 04-27-2023 20:30-0500 Heart rate 102 /min DO Boris Marquez Work Phone: [facility] 04-27-2023 20:30-0500 Respiratory rate 20 /min DO Boris Marquez Work Phone: [facility] 04-27-2023 20:30-0500 SaO2% (BldA) [Mass fraction] 96 % DO Boris Marquez Work Phone: [facility] 04-27-2023 20:30-0500 Systolic blood pressure 148 mm[Hg] DO Boris Marquez Work Phone: [facility] 04-21-2023 20:09-0500 Diastolic blood pressure 63 mm[Hg] DO Boris Marquez Work Phone: [facility] 04-21-2023 20:09-0500 Heart rate 62 /min DO Boris Marquez Work Phone: [facility] 04-21-2023 20:09-0500 Respiratory rate 16 /min DO Boris Marquez Work Phone: [facility] 04-21-2023 20:09-0500 SaO2% (BldA) [Mass fraction] 98 % DO Boris Marquez Work Phone: [facility] 04-21-2023 20:09-0500 Systolic blood pressure 122 mm[Hg] DO Boris Marquez Work Phone: [facility] 04-21-2023 17:30-0500 Body temperature 97.4 [degF] DO Boris Marquez Work Phone: [facility] 04-21-2023 17:29-0500 Body height 170.18 cm DO Boris Marquez Work Phone: [facility] 04-21-2023 17:29-0500 Body weight 85.6 kg DO Boris Marquez Work Phone: [facility] 02-16-2023 09:03-0400 Body temperature 97 [degF] Services [facility] Work Phone: [facility] 02-16-2023 09:03-0400 Body weight 84.82 kg Services [facility] Work Phone: [facility] 02-16-2023 09:03-0400 Diastolic blood pressure 69 mm[Hg] Services [facility] Work Phone: [facility] 02-16-2023 09:03-0400 Heart rate 75 /min Services [facility] Work Phone: [facility] 02-16-2023 09:03-0400 Respiratory rate 16 /min Services [employer] [facility] Work Phone: [facility] 02-16-2023 09:03-0400 SaO2% (BldA) [Mass fraction] 95 % Services [employer] [facility] Work Phone: [facility] 02-16-2023 09:03-0400 Systolic blood pressure 131 mm[Hg] Services [facility] Work Phone: [facility] 11-22-2022 11:02-0400 Diastolic blood pressure 56 mm[Hg] Edward CALLOWAY [facility] 11-22-2022 11:02-0400 Mean blood pressure 67 mm[Hg] Edward CALLOWAY [facility] 11-22-2022 11:02-0400 Respiratory rate 83 /min Edward CALLOWAY [facility] 11-22-2022 11:02-0400 Systolic blood pressure 89 mm[Hg] Edward CALLOWAY [facility] 11-22-2022 10:51-0400 Blood Pressure Location Edward CALLOWAY [facility] 11-22-2022 10:51-0400 Diastolic blood pressure 54 mm[Hg] Edward CALLOWAY [facility] 11-22-2022 10:51-0400 Heart rate 86 /min Edward CALLOWAY [facility] 11-22-2022 10:51-0400 Systolic blood pressure 97 mm[Hg] Edward CALLOWAY [facility] 11-05-2022 20:09-0400 Diastolic blood pressure 69 mm[Hg] Services [facility] Work Phone: [facility] 11-05-2022 20:09-0400 Heart rate 59 /min Services [facility] Work Phone: [facility] 11-05-2022 20:09-0400 Respiratory rate 18 /min Services [facility] Work Phone: [facility] 11-05-2022 20:09-0400 SaO2% (BldA) [Mass fraction] 96 % Services [facility] Work Phone: [facility] 11-05-2022 20:09-0400 Systolic blood pressure 125 mm[Hg] Services [facility] Work Phone: [facility] 11-05-2022 17:55-0400 Body height 170.18 cm Services [facility] Work Phone: [facility] 11-05-2022 17:55-0400 Body temperature 97.5 [degF] Services [facility] Work Phone: [facility] 11-05-2022 17:55-0400 Body weight 79 kg Services [facility] Work Phone: [facility] 11-02-2022 13:04-0400 Body temperature 98 [degF] Services [facility] Work Phone: [facility] 11-02-2022 13:04-0400 Body weight 78.47 kg Services [facility] Work Phone: [facility] 11-02-2022 13:04-0400 Diastolic blood pressure 65 mm[Hg] Services [facility] Work Phone: [facility] 11-02-2022 13:04-0400 Heart rate 81 /min Services [facility] Work Phone: [facility] 11-02-2022 13:04-0400 Respiratory rate 20 /min Services [facility] Work Phone: [facility] 11-02-2022 13:04-0400 SaO2% (BldA) [Mass fraction] 97 % Services [facility] Work Phone: [facility] 11-02-2022 13:04-0400 Systolic blood pressure 105 mm[Hg] Services [facility] Work Phone: [facility] 11-02-2022 12:53-0400 Body height 170.18 cm Services [facility] Work Phone: [facility] 09-17-2022 07:28-0400 Diastolic blood pressure 65 mm[Hg] Services [facility] Work Phone: [facility] 09-17-2022 07:28-0400 Heart rate 52 /min Services [facility] Work Phone: [facility] 09-17-2022 07:28-0400 Respiratory rate 18 /min Services [facility] Work Phone: [facility] 09-17-2022 07:28-0400 SaO2% (BldA) [Mass fraction] 98 % Services [facility] Work Phone: [facility] 09-17-2022 07:28-0400 Systolic blood pressure 117 mm[Hg] Services [facility] Work Phone: [facility] 09-17-2022 02:24-0400 Body height 170.18 cm Services [facility] Work Phone: [facility] 09-17-2022 02:24-0400 Body temperature 97.5 [degF] Services [facility] Work Phone: [facility] 09-17-2022 02:24-0400 Body weight 81.64 kg Services [facility] Work Phone: [facility] 09-03-2022 17:14-0400 Body height 172.72 cm Services [facility] Work Phone: [facility] 09-03-2022 17:14-0400 Body temperature 98.3 [degF] Services [facility] Work Phone: [facility] 09-03-2022 17:14-0400 Body weight 84.36 kg Services [facility] Work Phone: [facility] 09-03-2022 17:14-0400 Diastolic blood pressure 57 mm[Hg] Services [facility] Work Phone: [facility] 09-03-2022 17:14-0400 Heart rate 96 /min Services [facility] Work Phone: [facility] 09-03-2022 17:14-0400 Respiratory rate 20 /min Services [facility] Work Phone: [facility] 09-03-2022 17:14-0400 SaO2% (BldA) [Mass fraction] 95 % Services [facility] Work Phone: [facility] 09-03-2022 17:14-0400 Systolic blood pressure 110 mm[Hg] Services [facility] Work Phone: [facility] 08-07-2022 06:13-0400 Diastolic blood pressure 79 mm[Hg] Services [facility] Work Phone: [facility] 08-07-2022 06:13-0400 Heart rate 80 /min Services [facility] Work Phone: [facility] 08-07-2022 06:13-0400 Respiratory rate 16 /min Services [facility] Work Phone: [facility] 08-07-2022 06:13-0400 SaO2% (BldA) [Mass fraction] 95 % Services [facility] Work Phone: [facility] 08-07-2022 06:13-0400 Systolic blood pressure 157 mm[Hg] Services [facility] Work Phone: [facility] 08-07-2022 05:20-0400 Body temperature 97.1 [degF] Services [facility] Work Phone: [facility] 08-07-2022 05:15-0400 Body height 170.18 cm Services [facility] Work Phone: [facility] 08-07-2022 05:15-0400 Body weight 84.05 kg Services [facility] Work Phone: [facility] 07-14-2022 21:19-0400 Body height 170.18 cm Services [facility] Work Phone: [facility] 07-14-2022 21:19-0400 Body temperature 97.8 [degF] Services [facility] Work Phone: [facility] 07-14-2022 21:19-0400 Body weight 81.64 kg Services [facility] Work Phone: [facility] 07-14-2022 21:19-0400 Diastolic blood pressure 64 mm[Hg] Services [facility] Work Phone: [facility] 07-14-2022 21:19-0400 Heart rate 89 /min Services [facility] Work Phone: [facility] 07-14-2022 21:19-0400 Respiratory rate 18 /min Services [facility] Work Phone: [facility] 07-14-2022 21:19-0400 SaO2% (BldA) [Mass fraction] 100 % Services [facility] Work Phone: [facility] 07-14-2022 21:19-0400 Systolic blood pressure 118 mm[Hg] Services [facility] Work Phone: [facility] 06-15-2022 13:44-0500 Body height 170.18 cm Services [facility] Work Phone: [facility] 06-15-2022 13:44-0500 Body temperature 97.4 [degF] Services [employer] Work Phone: [facility] 06-15-2022 13:44-0500 Body weight 85.55 kg Services [employer] Work Phone: [facility] 06-15-2022 13:44-0500 Diastolic blood pressure 76 mm[Hg] Services [employer] Work Phone: [facility] 06-15-2022 13:44-0500 Heart rate 88 /min Services [employer] Work Phone: [facility] 06-15-2022 13:44-0500 Respiratory rate 20 /min Services [employer] Work Phone: [facility] 06-15-2022 13:44-0500 SaO2% (BldA) [Mass fraction] 98 % Services [employer] Work Phone: [facility] 06-15-2022 13:44-0500 Systolic blood pressure 158 mm[Hg] Services [employer] Work Phone: [facility] 02-28-2022 08:58-0400 Blood Pressure Location [employer] [facility] 02-28-2022 08:58-0400 Diastolic blood pressure 76 mm[Hg] [employer] [facility] 02-28-2022 08:58-0400 Heart rate 60 /min [employer]Shanxi [employer] [facility] 02-28-2022 08:58-0400 Respiratory rate 16 /min [employer]Shanxi [employer] [facility] 02-28-2022 08:58-0400 Systolic blood pressure 122 mm[Hg] Edward [employer] [facility] 02-12-2022 12:55-0400 Body height 170.18 cm Services [facility] Work Phone: [facility] 02-12-2022 12:55-0400 Body temperature 97.7 [degF] Services [facility] Work Phone: [facility] 02-12-2022 12:55-0400 Body weight 86.8 kg Services [facility] Work Phone: [facility] 02-12-2022 12:55-0400 Diastolic blood pressure 58 mm[Hg] Services [facility] Work Phone: [facility] 02-12-2022 12:55-0400 Heart rate 69 /min Services [employer] [facility] Work Phone: [facility] 02-12-2022 12:55-0400 Respiratory rate 18 /min Services [employer] Work Phone: [facility] 02-12-2022 12:55-0400 SaO2% (BldA) [Mass fraction] 96 % Services [facility] Work Phone: [facility] 02-12-2022 12:55-0400 Systolic blood pressure 126 mm[Hg] Services [employer] Work Phone: [facility] Encounters Encounter Date Encounter Type Care Provider Facility Start: 07-26-2023 ambulatory Edward CALLOWAY Facili ty:[id number] Start: 07-19-2023 End: 07-19-2023 ambulatory Services [facility] Facility:[facility] Start: 07-19-2023 End: 07-19-2023 ambulatory Services [facility] Work Phone: [facility] Work Phone: Start: 07-19-2023 End: 07-19-2023 Patient encounter procedure Services [facility] Work Phone: [facility] [place] Work Phone: Start: 06-27-2023 End: 06-28-2023 ambulatory Edward CALLOWAY Facility:[facility] Start: 06-27-2023 End: 06-27-2023 Patient encounter procedure Edward R CALLOWAY [facility] Start: 06-22-2023 End: 06-22-2023 ambulatory Services [facility] Facility:[facility] Start: 06-22-2023 End: 06-22-2023 ambulatory Services [facility] Work Phone: [facility] Work Phone: Start: 06-22-2023 End: 06-22-2023 Patient encounter procedure Services [facility] Work Phone: [facility]XRay [facility] [place] Work Phone: Start: 06-13-2023 End: 06-13-2023 Emergency department patient visit Services [facility] Start: 06-13-2023 End: 06-13-2023 Emergency department patient visit Services [facility] Work Phone: [facility]Emergency [facility] Work Phone: Start: 05-08-2023 End: 05-09-2023 Emergency department patient visit Services [facility] Start: 05-08-2023 End: 05-09-2023 Emergency department patient visit DO Boris Ariasuitt Work Phone: [facility] Work Phone: Start: 04-27-2023 End: 04-28-2023 Emergency department patient visit Services [facility] Start: 04-27-2023 End: 04-27-2023 Emergency department patient visit DO Boris Marquez Work Phone: [facility] Work Phone: Start: 04-21-2023 End: 04-21-2023 Emergency department patient visit Services [facility] Start: 04-21-2023 End: 04-21-2023 Emergency department patient visit DO Boris Beyert Work Phone: [facility] Work Phone: Start: 02-16-2023 End: 02-16-2023 ambulatory Services [facility] Work Phone: [facility] Work Phone: Start: 02-16-2023 End: 02-16-2023 Registered Recurring Services [facility] Work Phone: [facility] Work Phone: Start: 11-22-2022 End: 11-23-2022 ambulatory Edward Anaid VERNA Facility:[facility] Start: 11-22-2022 End: 11-22-2022 Patient encounter procedure Edward CALLOWAY [facility] Start: 11-21-2022 End: 11-21-2022 ambulatory Services Family [facility] Facility:[facility] Start: 11-21-2022 End: 11-21-2022 Patient encounter procedure Services [facility] Work Phone: [facility] [place] Work Phone: Start: 11-13-2022 End: 11-13-2022 Emergency department patient visit Services [facility] Facility:[facility] Start: 11-05-2022 End: 11-05-2022 Emergency department patient visit Services [facility] Facility:[facility] Start: 11-05-2022 End: 11-05-2022 Emergency department patient visit Services Family [facility] Work Phone: [facility] Work Phone: Start: 11-03-2022 End: 11-03-2022 ambulatory Edward Calloway Facility:[facility] Start: 11-03-2022 End: 11-03-2022 ambulatory Services [facility] Work Phone: [facility] Work Phone: Start: 11-03-2022 End: 11-03-2022 Patient encounter procedure Services Family [facility] Work Phone: [facility] [place] Work Phone: Start: 11-02-2022 End: 11-02-2022 ambulatory Services [facility] Work Phone: [facility] Work Phone: Start: 11-02-2022 End: 11-02-2022 Registered Recurring Services [facility] Work Phone: [facility] Work Phone: Start: 11-02-2022 Registered Recurring Services [facility] Work Phone: [facility] Work Phone: Start: 10-02-2022 End: 10-02-2022 ambulatory Boris Zayas Facility:[facility] Start: 10-02-2022 End: 10-02-2022 ambulatory Services [facility] Work Phone: [facility] Work Phone: Start: 10-02-2022 End: 10-02-2022 Departed Referred Services [facility] Work Phone: [facility] Start: 09-17-2022 End: 09-17-2022 Emergency department patient visit Elicia Malone Jr Facility:[facility] Start: 09-17-2022 End: 09-17-2022 Emergency department patient visit Services [facility] Work Phone: [facility] Work Phone: Start: 09-03-2022 End: 09-03-2022 Emergency department patient visit Services Family [facility] Facility:[facility] Start: 09-03-2022 End: 09-03-2022 Emergency department patient visit Services [facility] Work Phone: [facility] Work Phone: Start: 08-30-2022 End: 08-31-2022 ambulatory Edward CALLOWAY Facility:[facility] Start: 08-30-2022 End: 08-30-2022 Patient encounter procedure Edward CALLOWAY [facility] Start: 08-21-2022 End: 08-21-2022 ambulatory Services [facility] Facility:[facility] Start: 08-21-2022 End: 08-21-2022 ambulatory Services [facility] Work Phone: [facility] Work Phone: Start: 08-21-2022 End: 08-21-2022 Patient encounter procedure Services [facility] Work Phone: [facility] [place] Work Phone: Start: 08-07-2022 End: 08-07-2022 Emergency department patient visit Services [employer] [facility] Facility:[facility] Start: 08-07-2022 End: 08-07-2022 Emergency department patient visit Services [facility] Work Phone: [facility] Work Phone: Start: 07-14-2022 End: 07-14-2022 Emergency department patient visit Services [facility] Work Phone: [facility] Work Phone: Start: 06-23-2022 End: 06-23-2022 ambulatory Services [facility] Work Phone: [facility] Work Phone: Start: 06-23-2022 End: 06-23-2022 Departed Referred Services [facility] Work Phone: [facility] Start: 06-15-2022 End: 06-15-2022 Emergency department patient visit Services [facility] Work Phone: [facility] Work Phone: Start: 03-06-2022 End: 03-06-2022 ambulatory Services [facility] Work Phone: [facility] Work Phone: Start: 03-06-2022 End: 03-06-2022 Patient encounter procedure Services [facility] Phone: [facility] Start: 02-28-2022 End: 02-28-2022 Patient encounter procedure Edward CALLOWAY [facility] [employer] Start: 02-13-2022 End: 02-13-2022 Patient encounter procedure Services [facility] Phone: [facility]-XRay [facility] Start: 02-12-2022 End: 02-12-2022 Emergency department patient visit Services [facility] Phone: [facility]-Emergency Room Start: 08-23-2021 End: 08-23-2021 Patient encounter procedure [facility] Lily [facility] [employer] Start: 02-17-2021 End: 02-18-[address] EDWARD CALLOWAY Facility:[facility] Start: 02-10-2021 Encounter for preprocedural laboratory examination DR EDWARD CALLOWAY [facility] Start: 02-08-2021 Encounter for preprocedural cardiovascular examination DR EDWARD CALLOWAY [facility] Start: 02-08-2021 Encounter for preprocedural laboratory examination DR EDWARD CALLOWAY [facility] Start: 02-07-2021 End: 02-08-[address] EDWARD CALLOWAY Facility:[facility] Start: 02-07-2021 End: 02-08-2021 Encounter for preprocedural laboratory examination DR EDWARD CALLOWAY Facility:[facility] Start: 02-03-2021 End: 02-04-[address] EDWARD CALLOWAY Facility:[facility] Start: 02-03-2021 End: 02-04-2021 Encounter for preprocedural cardiovascular examination DR EDWARD CALLOWAY Facility:[facility] Procedures Date Procedure Procedure Detail Performing Clinician Start: 06-22-2023 Diagnostic radiography of abdomen Services [facility] Phone: Start: 06-13-2023 CT of abdomen and pelvis without contrast Services [facility] Phone: Start: 06-13-2023 Urine culture Services [facility] Phone: Start: 05-09-2023 Computed tomography of abdomen and pelvis with contrast Services [facility] Phone: Start: 04-27-2023 Urine culture DO Boris Zayas Work Phone: Start: 04-21-2023 Computed tomography of abdomen and pelvis with contrast DO Boris Zayas Work Phone: Start: 04-21-2023 Urine culture DO Boris Zayas Work Phone: Start: 11-05-2022 Screening for occult blood in feces Services [facility] Phone: Start: 11-03-2022 Diagnostic radiography of abdomen Services [facility] Phone: Start: 09-17-2022 Plain chest X-ray Services [facility] Phone: Start: 08-07-2022 CT of facial bones without contrast Services [facility] Phone: Start: 08-07-2022 CT of head without contrast Services [facility] Phone: Start: 07-14-2022 SARS-CoV-2, Influenza & RSV (PCR) Services [facility] Phone: Start: 02-13-2022 Diagnostic radiography of abdomen Services [facility] Phone: Start: 08-23-2021 Cystoscopic removal of ureteric stent [employer] Start: 08-02-2021 Cystoscopic insertion of ureteric stent [employer] Start: 02-17-2021 Transurethral prostatectomy [employer] Start: 01-11-2021 Cystoscope, device (physical object) [facility] [employer] Start: 08-12-2019 Cystoscopy [employer] Cholecystectomy Canal do [employer] Colonoscopy Sloan CORDOVA Cystoscopy Sloan [facility] Cystoscopy Sloan [facility] Extraction of cataract Blane CORDOVA Hemorrhoidectomy Slaon Olson History of cholecystectomy Statu s post cholecystectomy Services [facility] Work Phone: History of transuret hral prostatectomy Status post recent transurethral resection of prostate Services [facility] Work Phone: History of transuret hral prostatectomy S/P TURP Services [facility] Work Phone: Open repair of ingui nal hernia Sloan [facility]OVA Plan of Treatment Date Care Activity Detail Author Start: 06-22-2023 Diagnostic radiograp hy of abdomen XR abdomen 1V [facility] Start: 06-13-2023 Bacteria identified in Urine by Culture [facility] Start: 05-09-2023 Computed tomography of abdomen and pelvis with contrast CT abdomen pelvis w con [facility] Start: 05-09-2023 CT Abdomen and Pelvi s W contrast IV [facility] Start: 04-27-2023 Bacteria identified in Urine by Culture [facility] Start: 04-21-2023 Bacteria identified in Urine by Culture [facility] Start: 11-05-2022 Bacteria identified in Urine by Culture [facility] Start: 08-21-2022 [facility] Start: 07-14-2022 [facility] Start: 07-14-2022 SARS-CoV-2, Influenz a & RSV (PCR) SARS-CoV-2, Influenza & RSV (PCR) [facility] Patient Education [facility] Work Phone: Patient referral [facility] Work Phone: [facility] Immunizations Immunization Date Immunization Notes Care Provider Ning smith 06-12-2023 pneumococcal 20-[place] nt conjugate vaccine Edward CALLOWAY [facility] 06-12-2023 zoster vaccine recombinant Edward CALLOWAY [facility] 03-16-2023 zoster vaccine recombinant Edward CALLOWAY [facility] 01-26-2023 influenza virus vaccine, unspecified formulation Edward CALLOWAY [facility] 07-17-2022 influenza virus vaccine, unspecified formulation Edward CALLOWAY [facility] 07-17-2022 pneumococcal 20-[place] nt conjugate vaccine Edward CALLOWAY [facility] 03-13-2022 influenza virus vaccine, unspecified formulation Edward CALLOWAY [facility] 03-13-2022 pneumococcal polysaccharide vaccine, 23 valent Edward CALLOWAY [facility] 03-13-2022 SARS-CoV-2 (COVID-19 ) mRNA BNT-162b2 vax Edward CALLOWAY [facility] 04-07-2021 pneumococcal conjuga te vaccine, 13 valent Edwardnitesh CALLOWAY [facility] 04-06-2021 influenza virus vaccine, unspecified formulation Edward CALLOWAY [facility] 03-22-2021 SARS-CoV-2 (COVID-19 ) mRNA BNT-162b2 vax Edward CALLOWAY [facility] 08-28-2020 SARS-CoV-2 (COVID-19 ) mRNA BNT-162b2 vax [facility] [employer] 08-09-2020 SARS-CoV-2 (COVID-19 ) mRNA BNT-162b2 vax Edward [employer] [facility] 07-29-2020 SARS-CoV-2 (COVID-19 ) mRNA BNT-162b2 vax [facility] CORDOVA [facility] 07-15-2020 SARS-CoV-2 (COVID-19 ) mRNA BNT-162b2 vax Edward [employer] [facility] 03-23-2020 influenza virus vaccine, unspecified formulation Flexion [facility] 02-24-2019 influenza virus vaccine, unspecified formulation Flexion [facility] 01-28-2019 influenza virus vaccine, live, attenuated, for intranasal use [facility] MEDOP [facility] 03-07-2016 influenza virus vaccine, unspecified formulation Flexion [facility] NEGATED: Highlighted row has not occurred!03-16-2021 Fluzone QIV High-Dose 65YR+ Services [facility] Work Phone: [facility] Payers Date Payer Category Payer Private Health Insurance [id number] 2022 Self-pay [id number] 2017 Unknown [id number] 1959 Medicaid [id number] 1955 Unknown [id number] [id number]3 1955 Unknown [id number] 2.16.840.1.791496.3.579.2.593 1955 Unknown [id number] 2.16.840.1.457321.3.579.2.593 1955 Unknown [id number] 2.16.840.1.529595.3.579.2.727 1955 Unknown [id number] 2.16.840.1.152042.3.579.2.727 1955 Unknown [id number] 2.16.840.1.303281.3.579.2.727 Medicaid [place] [employer] [id number] Medicare Medicare [id number] Unknown [id number] 2.16.840.1.169086.3.579.2.531 Unknown [id number] 2.16.840.1.465707.3.579.2.531 Unknown [id number] 2.16.840.1.257343.3.579.2.531 Unknown [id number] 2.16.840.1.936392.3.579.2.531 Unknown [id number] 2.16.840.1.341443.3.579.2.531 Unknown [id number] 2.16.840.1.048634.3.579.2.531 Unknown [id number] 2.16.840.1.643651.3.579.2.531 Unknown [id number] 2.16.840.1.301139.3.579.2.531 Unknown [id number] 2.16.840.1.926263.3.579.2.531 Unknown [id number] 2.16.840.1.509493.3.579.2.531 Unknown [id number] 2.16.840.1.862849.3.579.2.531 Unknown [id number] 2.16.840.1.977528.3.579.2.531 Unknown [id number] 2.16.840.1.080737.3.579.2.531 Unknown [id number] 2.16.840.1.704781.3.579.2.531 Unknown [id number] 2.16.840.1.661370.3.579.2.531 Unknown [id number] 2.16.840.1.005276.3.579.2.531 Social History Date Type Detail Facility Start: 08-23-2021 End: 06-27-2023 Tobacco smoking status Light tobacco smoker (finding) [facility] Sex Assigned At Male [facility] Start: 02-12-2022 End: 06-13-2023 Tobacco smoking status NHIS Smoker (finding) [facility] Start: 1955 Sex Assigned At Male [facility] Start: 09-03-2022 End: 04-21-2023 Tobacco smoking status NHIS Never smoked tobacco (finding) [facility] Start: 09-17-2022 End: 11-02-2022 Tobacco smoking status NHIS Current some day smoker [facility] Tobacco smoking status Never [facility] Medical Equipment Procedure Code Equipment Code Equipment Origin al Text Equipment Identifier Dates Cystoscopy, with ureteral calculus manipulation and stent placement Polymeric ureteral stent [id number] [facility] Start: 08-02-2021 Functional Status Date Assessment Result Facility 06-27-2023 Functional Status N/A [facility] 11-22-2022 Functional Status N/A [facility] 08-30-2022 Functional Status N/A [facility] 02-28-2022 Functional Status N/A [facility] Clinical Notes 08-23-2021 to 06-27-2023 Note Date & Type Note Facility 06-27-2023 Hospital Discharg e instructions Patient Education 06/27/2023 12:01:45 Lithotripsy, Care After Lithotripsy, Care After This sheet gives you information about how to care for yourself after your procedure. Your health care provider may also give you more specific instructions. If you have problems or questions, contact your health care provider. What can I expect after the procedure? After the procedure, it is common to have: Some blood in your urine. This should only last for a few days. Soreness in your back, sides, or upper abdomen for a few days. Blotches or bruises on the area where the shock wave entered the skin. Pain, discomfort, or nausea when pieces (fragments) of the kidney stone move through the tube that carries urine from the kidney to the bladder (ureter). Stone fragments may pass soon after the procedure, but they may continue to pass for up to 4 8 weeks. ?If you have severe pain or nausea, contact your health care provider. This may be caused by a large stone that was not broken up, and this may mean that you need more treatment. Some pain or discomfort during urination. Some pain or discomfort in the lower abdomen or (in men) at the base of the penis. Follow these instructions at home: Medicines Take rrzc-dsw-cexpyvn and prescription medicines only as told by your health care provider. If you were prescribed an antibiotic medicine, take it as told by your health care provider. Do not stop taking the antibiotic even if you start to feel better. Ask your health care provider if the medicine prescribed to you requires you to avoid driving or using machinery. Eating and drinking Drink enough fluid to keep your urine pale yellow. This helps any remaining pieces of the stone to pass. It can also help prevent new stones from forming. Eat plenty of fresh fruits and vegetables. Follow instructions from your health care provider about eating or drinking restrictions. You may be instructed to: ?Reduce how much salt (sodium) you eat or drink. Check ingredients and nutrition facts on packaged foods and beverages to see how much sodium they contain. ?Reduce how much meat you eat. Eat the recommended amount of calcium for your age and gender. Ask your health care provider how much calcium you should have. General instructions Get plenty of rest. Return to your normal activities as told by your health care provider. Ask your health care provider what activities are safe for you. Most people can resume normal activities 1 2 days after the procedure. If you were given a sedative during the procedure, it can affect you for several hours. Do not drive or operate machinery until your health care provider says that it is safe. Your health care provider may direct you to lie in a certain position (postural drainage) and tap firmly (percuss) over your kidney area to help stone fragments pass. Follow instructions as told by your health care provider. If directed, strain all urine through the strainer that was provided by your health care provider. ?Keep all fragments for your health care provider to see. Any stones that are found may be sent to a medical lab for examination. The stone may be as small as a grain of salt. Keep all follow-up visits as told by your health care provider. This is important. Contact a health care provider if: You have a fever or chills. You have nausea that is severe or does not go away. You have any of these urinary symptoms: ?Blood in your urine for longer than your health care provider told you to expect. ?Urine that smells bad or unusual. ?Feeling a strong urge to urinate after emptying your bladder. ?Pain or burning with urination that does not go away. ?Urinating more often than usual and this does not go away. You have a stent and it comes out. Get help right away if: You have severe pain in your back, sides, or upper abdomen. You have any of these urinary symptoms: ?Severe pain while urinating. ?More blood in your urine or having blood in your urine when you did not before. ?Passing blood clots in your urine. ?Passing only a small amount of urine or being unable to pass any urine at all. You have severe nausea that leads to persistent vomiting. You faint. Summary After this procedure, it is common to have some pain, discomfort, or nausea when pieces (fragments) of the kidney stone move through the tube that carries urine from the kidney to the bladder (ureter). If this pain or nausea is severe, however, you should contact your health care provider. Return to your normal activities as told by your health care provider. Ask your health care provider what activities are safe for you. Drink enough fluid to keep your urine pale yellow. This helps any remaining pieces of the stone to pass, and it can help prevent new stones from forming. If directed, strain your urine and keep all fragments for your health care provider to see. Fragments or stones may be as small as a grain of salt. Get help right away if you have severe pain in your back, sides, or upper abdomen, or if you have severe pain while urinating. This information is not intended to replace advice given to you by your health care provider. Make sure you discuss any questions you have with your health care provider. Document Revised: 03/13/2022 Document Reviewed: 12/19/2021 [employer] Patient Education 2022 [employer]. 06/27/2023 12:01:44 Lithotripsy Lithotripsy Lithotripsy is a treatment that can help break up kidney stones that are too large to pass on their own. This is a nonsurgical procedure that crushes a kidney stone with shock waves. These shock waves pass through your body and focus on the kidney stone. They cause the kidney stone to break up into smaller pieces while it is still in the urinary tract. The smaller pieces of stone can pass more easily out of your body in the urine. Tell a health care provider about: Any allergies you have. All medicines you are taking, including vitamins, herbs, eye drops, creams, and iqyx-gki-zxhjtfn medicines. Any problems you or family members have had with anesthetic medicines. Any blood disorders you have. Any surgeries you have had. Any medical conditions you have. Whether you are or may be . What are the risks? Generally, this is a safe procedure. However, problems may occur, including: Infection. Bleeding from the kidney. Bruising of the kidney or skin. Scarring of the kidney, which can lead to: ?Increased blood pressure. ?Poor kidney function. ?Return (recurrence) of kidney stones. Damage to other structures or organs, such as the liver, colon, spleen, or pancreas. Blockage (obstruction) of the tube that carries urine from the kidney to the bladder (ureter). Failure of the kidney stone to break into pieces (fragments). What happens before the procedure? Staying hydrated Follow instructions from your health care provider about hydration, which may include: Up to 2 hours before the procedure you may continue to drink clear liquids, such as water, clear fruit juice, black coffee, and plain tea. Eating and drinking restrictions Follow instructions from your health care provider about eating and drinking, which may include: 8 hours before the procedure stop eating heavy meals or foods, such as meat, fried foods, or fatty foods. 6 hours before the procedure stop eating light meals or foods, such as toast or cereal. 6 hours before the procedure stop drinking milk or drinks that contain milk. 2 hours before the procedure stop drinking clear liquids. Medicines Ask your health care provider about: Changing or stopping your regular medicines. This is especially important if you are taking diabetes medicines or blood thinners. Taking medicines such as aspirin and ibuprofen. These medicines can thin your blood. Do not take these medicines unless your health care provider tells you to take them. Taking htbl-iiw-mihcoxp medicines, vitamins, herbs, and supplements. Tests You may have tests, such as: Blood tests. Urine tests. Imaging tests, such as a CT scan. General instructions Plan to have someone take you home from the hospital or clinic. If you will be going home right after the procedure, plan to have someone with you for 24 hours. Ask your health care provider what steps will be taken to help prevent infection. These may include washing skin with a germ-killing soap. What happens during the procedure? An IV will be inserted into one of your veins. You will be given one or more of the following: ?A medicine to help you relax (sedative). ?A medicine to make you fall asleep (general anesthetic). A water-filled cushion may be placed behind your kidney or on your abdomen. In some cases, you may be placed in a tub of lukewarm water. Your body will be positioned in a way that makes it easy to target the kidney stone. An X-ray or ultrasound exam will be done to locate your stone. Shock waves will be aimed at the stone. If you are awake, you may feel a tapping sensation as the shock waves pass through your body. A flexible tube with holes in it (stent) may be placed in the ureter. This will help keep urine flowing from the kidney if the fragments of the stone have been blocking the ureter. The procedure may vary among health care providers and hospitals. What happens after the procedure? You may have an X-ray to see whether the procedure was able to break up the kidney stone and how much of the stone has passed. If large stone fragments remain after treatment, you may need to have a second procedure at a later time. Your blood pressure, heart rate, breathing rate, and blood oxygen level will be monitored until you leave the hospital or clinic. You may be given antibiotics or pain medicine as needed. If a stent was placed in your ureter during surgery, it may stay in place for a few weeks. You may need to strain your urine to collect pieces of the kidney stone for testing. You will need to drink plenty of water. If you were given a sedative during the procedure, it can affect you for several hours. Do not drive or operate machinery until your health care provider says that it is safe. Summary Lithotripsy is a treatment that can help break up kidney stones that are too large to pass on their own. Lithotripsy is a nonsurgical procedure that crushes a kidney stone with shock waves. Generally, this is a safe procedure. However, problems may occur, including damage to the kidney or other organs, infection, or obstruction of the tube that carries urine from the kidney to the bladder (ureter). You may have a stent placed in your ureter to help drain your urine. This stent may stay in place for a few weeks. After the procedure, you will need to drink plenty of water. You may be asked to strain your urine to collect pieces of the kidney stone for testing. This information is not intended to replace advice given to you by your health care provider. Make sure you discuss any questions you have with your health care provider. Document Revised: 03/13/2022 Document Reviewed: 12/19/2021 [employer] Patient Education 2022 [employer] Follow Up Care 11/22/2022 12:03:00 With:VERNA LA, Edward Worrell, URL Address: [facility] [address], [place] [address]- When: Unknown [facility] 11-23-2022 Progress note Note Date/Time November 02, 2022 1:46pm [address] [place] [address] Hem/Onc Follow Up Note - OP Signed with Addenda Patient: Nathan Martin MR#: [id number] : 1955 Acct:[id number] Age/Sex: 67 / M Type: REG RCR Copies to: Boris Zayas DO, [facility]~ ADDENDUM1 Patient does not qualify for intravenous iron given normal, preserved hemoglobin. Tolerates oral iron okay - will have him continue oral supplementation and follow up in 3 months with labs (CBC, iron studies + ferritin) Addendum Dictated By: ILIR De Leon Addendum Signed By: 11/23/221626 Addendum Cosigned By: DD/ TD/TT: 11/23/22 Subjective Date/Time of Service: Date of Service: 11/02/2022 Time of Service: 13:45 Chief Complaint: Patient is referred by [facility] for iron deficiency anemia. [facility]. HPI: Dear Dr. Zayas, I have seen your patient in consultation and would like to thank you for the courtesy of your referral. As you know Mr. Nathan Martin is a very nice 67-year-old gentleman with a past medical history significant for: Diabetes mellitus type 2, GERD, BPH/prostatitis, obstructive sleep apnea?does not require CPAP machine, kidney stones (2014 and 2020): Status postcholecystectomy. Last gastrointestinal work-up with EGD and colonoscopy wasdone on June 20, 2018 with polypectomy x2 with Dr. Ryan; negative EGD. The patient has been referred to our outpatient hematology clinic in regards to persistent, mild iron deficiency without significant anemia despite oral iron supplementation x6 months. Most recent laboratories are reviewed. Most recent CBC dated 10/02/2022 reveals a WBC count of 6.9; hemoglobin 15.7; hematocrit 46.6;platelet count 182,000. Normal indices with mild elevation of RDW. Iron saturation?19%; ferritin?12.2. B12?361; folate 24. Normal chemistry panel; including normal renal/hepatic function. No evidence of hypercalcemia. In review of his past laboratories, it appears as though he was first noted to havesome iron deficiency on routine laboratories drawn in July 2021 with a an iron saturation of 5%. Follow-up iron studies in May 2022 demonstrated some improvement to 23%-and on repeat labs 4 months later he was noted to have some decline again to 19% with ferritin level of 12.2. On exam, the patient reports persistent fatigue, with occasional leg cramps/muscle aches at HS, denies PICA or cold intolerance. He specifically denies any issues with abnormal bleeding/bruising. Denies epistaxis, gingival bleeding, hematuria or melena/hematochezia or bright red blood per rectum. Furthermore, specifically denies headaches, fever/chills, recent/recurrent infections, night sweats, unintentional weight loss, nausea/vomiting, abdominal pain, early satiety, lymphadenopathy, diarrhea/constipation, skin rash, peripheral neuropathy or lower extremity edema. He is a current, every day smoker ~ 1 pack/day; no history personal history of malignancy or thrombosis. Previous alcohol use; no longer drinks. Family history is notable for prostate cancer with his father. - Summary of Therapies Summary of Therapies: 1.) Ferrous sulfate 325 mg PO once daily: started February 2022 Subjective/ROS - Narrative: As per the HPI, otherwise 10 point review of systems is negative. [facility] - Medical History Medical History: Medical History (Last Reviewed 11/02/22 @ 13:00 by Saira Mcbride) Arthritis mild Bipolar disorder Hiatal hernia Hyperlipidemia Hypertension Nephrolithiasis Sleep apnea no cpap Smoker TIA (transient ischemic attack) Type 2 diabetes mellitus - Surgical History Surgical History: Surgical History (Last Reviewed 11/02/22 @ 13:00 by Saira Mcbride) History of cholecystectomy History of cystoscopy History of lithotripsy History of transurethral resection of prostate - Family History Family History: Family History (Last Reviewed 11/02/22 @ 13:00 by Saira Mcbride) Father Hypertension Stroke Prostate cancer Mother Diabetes mellitus, type 2 Hypertension - Social History Smoking Status: Current some day smoker Tobacco Type: cigarettes Substance Use Type: Alcohol, Former User Social History Comments: Pt. will have someone with him after discharge Home Medications & Allergies Allergies bee venom protein (honey bee) Allergy (Verified 11/02/22 12:59) Anaphylaxis grapefruit Allergy (Verified 11/02/22 12:59) Lips swell up Home Medications lisinopril 20 mg tablet 20 mg PO QHS HTN 08/24/17 [History Confirmed 11/02/22] omeprazole 40 mg capsule,delayed release 40 mg PO DAILY hiatal hernia 06/14/19 [History Confirmed 11/02/22] metformin 500 mg tablet 500 mg PO DAILY 06/15/22 [History Confirmed 11/02/22] atorvastatin 40 mg tablet 40 mg PO DAILY 08/07/22 [History Confirmed 11/02/22] ferrous sulfate 325 mg (65 mg iron) tablet 325 mg PO Q48H 11/01/22 [History Confirmed 11/02/22] Objective - Resuscitation Status Resuscitation Status: Full Code - Height/Weight Height/Weight: Height 5 ft 7 in Weight 78.471 kg - Vital Signs Vital Signs: 11/02/22 13:04 Temperature 98.0 F Pulse Rate [Left Brachial] 81 Respiratory Rate 20 Blood Pressure [Left Arm] 105/65 02 Sat by Pulse Oximetry 97 Oxygen Delivery Method Room Air Physical Exam Narrative: PHYSICAL EXAMINATION: GENERAL: Alert, no acute distress. HEENT: Head is normocephalic, atraumatic. No scleral icterus. Oral mucosa is pink and moist. No lesions or exudate. NECK: Supple without adenopathy or thyromegaly. HEART: Regular rate and rhythm. S1 and S2 normal. LUNGS: Lungs clear to auscultation bilaterally. No wheezes or crackles. ABDOMEN: Abdomen soft, nontender, nondistended. No hepatosplenomegaly. Bowel sounds present x4 quadrants. BACK: Full ROM; No CVA tenderness. EXTREMITIES: Warm and dry. No edema, clubbing or cyanosis. NEUROLOGICAL: No focal or sensory deficits. The patient is alert and oriented x3 - ECOG Performance Status ECOG Score: 0 Assessment and Plan (1) Iron deficiency The patient has been referred to our outpatient hematology clinic in regards to persistent, mild iron deficiency without significant anemia despite oral iron supplementation x6 months. Most recent laboratories are reviewed. Most recent CBC dated 10/02/2022 reveals a WBC count of 6.9; hemoglobin 15.7; hematocrit 46.6;platelet count 182,000. Normal indices with mild elevation of RDW. Iron saturation?19%; ferritin?12.2. B12?361; folate 24. Normal chemistry panel; including normal renal/hepatic function. No evidence of hypercalcemia. In review of his past laboratories, it appears as though he was first noted to havesome iron deficiency on routine laboratories drawn in July 2021 with a an iron saturation of 5%. Follow-up iron studies in May 2022 demonstrated some improvement to 23%-and on repeat labs 4 months later he was noted to have some decline again to 19% with ferritin level of 12.2. Iron deficiency likely due to poor absorption vs occult blood loss. - no significant improvement with iron stores despite compliance with oral iron > 6 month duration - negative GI work-up in May 2018. - no current complaints of obvious GI or blood loss; no weight loss, abdominal pain or other systemic complaints - no significant periods of anemia or other abnormalities on CBC Will repeat labs - given his last labs are > 30 days old and re-assess/order intravenous iron repletion. - will check: CBC, retic count, iron studies, ferritin - B12 and folate were okay on last set of labs. He is at low end of normal B12 and may add oral B12 ifhe chooses. - will prepare orders for: Venofer 300 mg IV x 3 doses Follow up in ~ 6-7 weeks after iron infusions are complete to assess response. - Time with Patient Time Spent with Patient (Follow Up Visit): 45 minutes or more - new patient, review outside records, labs, prepare iron orders Coordination of Care & Counseling Time: Greater than 50% of time spent with patient was for coordination of care (as documented) and qhca-av-qarc counseling of patient and/or family. Dictated By: Che De Leon APRN DD/ [id number] Signed By: <Electronically signed by ILIR De Leon> 11/02/22 1401 [facility] Work Phone: [phone] Hospital Discharge instructions Patient Education 11/22/2022 11:55:49 Benign Prostatic Hyperplasia Benign Prostatic Hyperplasia Benign prostatic hyperplasia (BPH) is an enlarged prostate gland that is caused by the normal agingprocess. The prostate may get bigger as a man gets older. The condition is not caused by cancer. The prostate is a walnut-sized gland that is involved in the production of semen. It is located in front of the rectum and below the bladder. The bladder stores urine. The urethra carries stored urine ou t of the body. An enlarged prostate can press on the urethra. This can make it harder to pass urine. The buildup of urine in the bladder can cause infection. Back pressure and infection may progress to bladder damage and kidney (renal) failure. What are the causes? This condition is part of the normal aging process. However, not all men develop problems from thiscondition. If the prostate enlarges away from the urethra, urine flow will not be blocked. If it enlarges toward the urethra and compresses it, there will be problems passing urine. What increases the risk? This condition is more likely to develop in men older than 50 years. What are the signs or symptoms? Symptoms of this condition include: Getting up often during the night to urinate. Needing to urinate frequently during the day. Difficulty starting urine flow. Decrease in size and strength of your urine stream. Leaking (dribbling) after urinating. Inability to pass urine. This needs immediate treatment. Inability to completely empty your bladder. Pain when you pass urine. This is more common if there is also an infection. Urinary tract infection (UTI). How is this diagnosed? This condition is diagnosed based on your medical history, a physical exam, and your symptoms. Tests will also be done, such as: A post-void bladder scan. This measures any amount of urine that may remain in your bladder after you finish urinating. A digital rectal exam. In a rectal exam, your health care provider checks your prostate by putting a lubricated, gloved finger into your rectum to feel the back of your prostate gland. This exam detects the size of your gland and any abnormal lumps or growths. An exam of your urine (urinalysis). A prostate specific antigen (PSA) screening. This is a blood test used to screen for prostate cancer. An ultrasound. This test uses sound waves to electronically produce a picture of your prostate gland. Your health care provider may refer you to a specialist in kidney and prostate diseases (urologist). How is this treated? Once symptoms begin, your health care provider will monitor your condition (active surveillance or watchful waiting). Treatment for this condition will depend on the severity of your condition. Treatment may include: Observation and yearly exams. This may be the only treatment needed if your condition and symptoms are mild. Medicines to relieve your symptoms, including: ?Medicines to shrink the prostate. ?Medicines to relax the muscle of the prostate. Surgery in severe cases. Surgery may include: ?Prostatectomy. In this procedure, the prostate tissue is removed completely through an open incision or with a laparoscope or robotics. ?Transurethral resection of the prostate (TURP). In this procedure, a tool is inserted through the opening at the tip of the penis (urethra). It is used to cut away tissue of the inner core of the prostate. The pieces are removed through the same opening of the penis. This removes the blockage. ?Transurethral incision (TUIP). In this procedure, small cuts are made in the prostate. This lessens the prostate's pressure on the urethra. ?Transurethral microwave thermotherapy (TUMT). This procedure uses microwaves to create heat. The heat destroys and removes a small amount of prostate tissue. ?Transurethral needle ablation (TUNA). This procedure uses radio frequencies to destroy and remove a small amount of prostate tissue. ?Interstitial laser coagulation (ILC). This procedure uses a laser to destroy and remove a small amount of prostate tissue. ?Transurethral electrovaporization (TUVP). This procedure uses electrodes to destroy and remove a small amount of prostate tissue. ?Prostatic urethral lift. This procedure inserts an implant to push the lobes of the prostate away from the urethra. Follow these instructions at home: Take lrbb-ycs-cudncdw and prescription medicines only as told by your health care provider. Monitor your symptoms for any changes. Contact your health care provider with any changes. Avoid drinking large amounts of liquid before going to bed or out in public. Avoid or reduce how much caffeine or alcohol you drink. Give yourself time when you urinate. Keep all follow-up visits. This is important. Contact a health care provider if: You have unexplained back pain. Your symptoms do not get better with treatment. You develop side effects from the medicine you are taking. Your urine becomes very dark or has a bad smell. Your lower abdomen becomes distended and you have trouble passing urine. Get help right away if: You have a fever or chills. You suddenly cannot urinate. You feel light-headed or very dizzy, or you faint. There are large amounts of blood or clots in your urine. Your urinary problems become hard to manage. You develop moderate to severe low back or flank pain. The flank is the side of your body between the ribs and the hip. These symptoms may be an emergency. Get help right away. Call 911. Do not wait to see if the symptoms will go away. Do not drive yourself to the hospital. Summary Benign prostatic hyperplasia (BPH) is an enlarged prostate that is caused by the normal aging process. It is not caused by cancer. An enlarged prostate can press on the urethra. This can make it hard to pass urine. This condition is more likely to develop in men older than 50 years. Get help right away if you suddenly cannot urinate. This information is not intended to replace advice given to you by your health care provider. Make sure you discuss any questions you have with your health care provider. Document Revised: 11/02/2021 Document Reviewed: 11/02/2021 [employer] Patient Education 2022 [employer]. Follow Up Care 08/30/2022 13:59:36 With:VERNA LA, Edward Worrell, BALJIT Address: [facility] [address] , [place] [address]- [phone] When: Unknown Comments:6 mos w/ SOPHIA [facility] 05-03-2023 Hospital Discharge instructions Patient Education 08/30/2022 13:52:38 Kidney Stones, Nxdk-cg-Ejxf Kidney Stones Kidney stones are rock-like masses that form inside of the kidneys. Kidneys are organs that make pee (urine). A kidney stone may move into other parts of the urinary tract, including: The tubes that connect the kidneys to the bladder (ureters). The bladder. The tube that carries urine out of the body (urethra). Kidney stones can cause very bad pain and can block the flow of pee. The stone usually leaves your body (passes) through your pee. You may need to have a doctor take out the stone. What are the causes? Kidney stones may be caused by: A condition in which certain glands make too much parathyroid hormone (primary hyperparathyroidism). A buildup of a type of crystals in the bladder made of a chemical called uric acid. The body makes uric acid when you eat certain foods. Narrowing (stricture) of one or both of the ureters. A kidney blockage that you were born with. Past surgery on the kidney or the ureters, such as gastric bypass surgery. What increases the risk? You are more likely to develop this condition if: You have had a kidney stone in the past. You have a family history of kidney stones. You do not drink enough water. You eat a diet that is high in protein, salt (sodium), or sugar. You are overweight or very overweight (obese). What are the signs or symptoms? Symptoms of a kidney stone may include: Pain in the side of the belly, right below the ribs (flank pain). Pain usually spreads (radiates) to the groin. Needing to pee often or right away (urgently). Pain when going pee (urinating). Blood in your pee (hematuria). Feeling like you may vomit (nauseous). Vomiting. Fever and chills. How is this treated? Treatment depends on the size, location, and makeup of the kidney stones. The stones will often pass out of the body through peeing. You may need to: Drink more fluid to help pass the stone. In some cases, you may be given fluids through an IV tube put into one of your veins at the hospital. Take medicine for pain. Make changes in your diet to help keep kidney stones from coming back. Sometimes, medical procedures are needed to remove a kidney stone. This may involve: A procedure to break up kidney stones using a beam of light (laser) or shock waves. Surgery to remove the kidney stones. Follow these instructions at home: Medicines Take lhyo-sca-jnpxoqx and prescription medicines only as told by your doctor. Ask your doctor if the medicine prescribed to you requires you to avoid driving or using heavy machinery. Eating and drinking Drink enough fluid to keep your pee pale yellow. You may be told to drink at least 8 10 glasses of water each day. This will help you pass the stone. If told by your doctor, change your diet. This may include: ?Limiting how much salt you eat. ?Eating more fruits and vegetables. ?Limiting how much meat, poultry, fish, and eggs you eat. Follow instructions from your doctor about eating or drinking restrictions. General instructions Collect pee samples as told by your doctor. You may need to collect a pee sample: ?24 hours after a stone comes out. ?8 12 weeks after a stone comes out, and every 6 12 months after that. Strain your pee every time you pee (urinate), for as long as told. Use the strainer that your doctor recommends. Do not throw out the stone. Keep it so that it can be tested by your doctor. Keep all follow-up visits as told by your doctor. This is important. You may need follow-up tests. How is this prevented? To prevent another kidney stone: Drink enough fluid to keep your pee pale yellow. This is the best way to prevent kidney stones. Eat healthy foods. Avoid certain foods as told by your doctor. You may be told to eat less protein. Stay at a healthy weight. Where to find more information National Kidney Foundation (NKF): www.kidney.org [facility] (UCF): www.urologyhealth.org Contact a doctor if: You have pain that gets worse or does not get better with medicine. Get help right away if: You have a fever or chills. You get very bad pain. You get new pain in your belly (abdomen). You pass out (faint). You cannot pee. Summary Kidney stones are rock-like masses that form inside of the kidneys. Kidney stones can cause very bad pain and can block the flow of pee. The stones will often pass out of the body through peeing. Drink enough fluid to keep your pee pale yellow. This information is not intended to replace advice given to you by your health care provider. Make sure you discuss any questions you have with your health care provider. Document Revised: 12/19/2021 Document Reviewed: 12/19/2021 [employer] Patient Education 2022 [employer]. Follow Up Care 02/28/2022 09:55:39 With:VERNA LA, Edward Worrell, URL Address: [facility] [address] , [place] [address]- [phone] When:10/30/2022 Comments:ANASTACIO CORTES [facility] 11-01-2022 Hospital Discharge instructions Patient Education 02/28/2022 09:43:52 Kidney Stones, Phkz-ro-Cacl Kidney Stones Kidney stones are rock-like masses that form inside of the kidneys. Kidneys are organs that make pee (urine). A kidney stone may move into other parts of the urinary tract, including: The tubes that connect the kidneys to the bladder (ureters). The bladder. The tube that carries urine out of the body (urethra). Kidney stones can cause very bad pain and can block the flow of pee. The stone usually leaves your body (passes) through your pee. You may need to have a doctor take out the stone. What are the causes? Kidney stones may be caused by: A condition in which certain glands make too much parathyroid hormone (primary hyperparathyroidism). A buildup of a type of crystals in the bladder made of a chemical called uric acid. The body makes uric acid when you eat certain foods. Narrowing (stricture) of one or both of the ureters. A kidney blockage that you were born with. Past surgery on the kidney or the ureters, such as gastric bypass surgery. What increases the risk? You are more likely to develop this condition if: You have had a kidney stone in the past. You have a family history of kidney stones. You do not drink enough water. You eat a diet that is high in protein, salt (sodium), or sugar. You are overweight or very overweight (obese). What are the signs or symptoms? Symptoms of a kidney stone may include: Pain in the side of the belly, right below the ribs (flank pain). Pain usually spreads (radiates) to the groin. Needing to pee often or right away (urgently). Pain when going pee (urinating). Blood in your pee (hematuria). Feeling like you may vomit (nauseous). Vomiting. Fever and chills. How is this treated? Treatment depends on the size, location, and makeup of the kidney stones. The stones will often pass out of the body through peeing. You may need to: Drink more fluid to help pass the stone. In some cases, you may be given fluids through an IV tube put into one of your veins at the hospital. Take medicine for pain. Make changes in your diet to help keep kidney stones from coming back. Sometimes, medical procedures are needed to remove a kidney stone. This may involve: A procedure to break up kidney stones using a beam of light (laser) or shock waves. Surgery to remove the kidney stones. Follow these instructions at home: Medicines Take ozhd-ief-tkgnepr and prescription medicines only as told by your doctor. Ask your doctor if the medicine prescribed to you requires you to avoid driving or using heavy machinery. Eating and drinking Drink enough fluid to keep your pee pale yellow. You may be told to drink at least 8 10 glasses of water each day. This will help you pass the stone. If told by your doctor, change your diet. This may include: ?Limiting how much salt you eat. ?Eating more fruits and vegetables. ?Limiting how much meat, poultry, fish, and eggs you eat. Follow instructions from your doctor about eating or drinking restrictions. General instructions Collect pee samples as told by your doctor. You may need to collect a pee sample: ?24 hours after a stone comes out. ?8 12 weeks after a stone comes out, and every 6 12 months after that. Strain your pee every time you pee (urinate), for as long as told. Use the strainer that your doctor recommends. Do not throw out the stone. Keep it so that it can be tested by your doctor. Keep all follow-up visits as told by your doctor. This is important. You may need follow-up tests. How is this prevented? To prevent another kidney stone: Drink enough fluid to keep your pee pale yellow. This is the best way to prevent kidney stones. Eat healthy foods. Avoid certain foods as told by your doctor. You may be told to eat less protein. Stay at a healthy weight. Where to find more information National Kidney Foundation (NKF): www.kidney.org U[facility] Care Foundation (UCF): www.urologyhealth.org Contact a doctor if: You have pain that gets worse or does not get better with medicine. Get help right away if: You have a fever or chills. You get very bad pain. You get new pain in your belly (abdomen). You pass out (faint). You cannot pee. Summary Kidney stones are rock-like masses that form inside of the kidneys. Kidney stones can cause very bad pain and can block the flow of pee. The stones will often pass out of the body through peeing. Drink enough fluid to keep your pee pale yellow. This information is not intended to replace advice given to you by your health care provider. Make sure you discuss any questions you have with your health care provider. Document Released: 10/02/2008 Document Revised: 09/02/2019 Document Reviewed: 09/02/2019 [employer] Patient Education 2020 [employer]. Follow Up Care 08/17/2021 15:05:16 With:VERNA LA, Edward Worrell, URL Address: [address] [place], [place] [id number]- [phone] When:Within 6 Month(s) Comments:PSA now, KUB in 6 months with f/u [facility] Laura 04-26-2022 Hospital Discharge instructions Patient Education 08/23/2021 07:57:50 Acute Urinary Retention, Male Acute Urinary Retention, Male Acute urinary retention is a condition in which a person is unable to pass urine. This can last fora short time or for a long time. If left untreated, it can result in kidney damage or other seriouscomplications. What are the causes? This condition may be caused by: Obstruction or narrowing of the tube that drains the bladder (urethra). This may be caused by surgery or problems with nearby organs, such as the prostate gland, which can press or squeeze the urethra. Problems with the nerves in the bladder. These can be caused by diseases, such as multiple sclerosis, or by spinal cord injuries. Certain medicines. Tumors in the area of the pelvis, bladder, or urethra. Diabetes. Degenerative cognitive conditions such as delirium or dementia. Bladder or urinary tract infection. Constipation. Blood in the urine (hematuria). Injury to the bladder or urethra. Psychological (psychogenic) conditions. Someone may hold his urine due to trauma or because he doesnot want to use the bathroom. What increases the risk? This condition is more likely to develop in older men. As men age, their prostate may become largerand may start pressing or squeezing on the bladder or the urethra. What are the signs or symptoms? Symptoms of this condition include: Trouble urinating. Pain in the lower abdomen. Symptoms usually come on slowly over a long period of time. How is this diagnosed? This condition is diagnosed based on a physical exam and a medical history. You may also have othertests, including: An ultrasound of the bladder or kidneys or both. Blood tests. A urine analysis. Additional tests may be needed such as an MRI, kidney, or bladder function tests. How is this treated? Treatment for this condition may include: Medicines. Placing a thin, sterile tube (catheter) into the bladder to drain urine out of the body. This is called an indwelling urinary catheter. After being inserted, the catheter is held in place with a small balloon that is filled with sterile water. Urine drains from the catheter into a collection bag outside of the body. Behavioral therapy. Treatment for any underlying conditions. If needed, you may be treated in the hospital for kidney function problems or to manage other complications. Follow these instructions at home: Take mlcf-bwi-izcghjh and prescription medicines only as told by your health care provider. Avoid certain medicines, such as decongestants, antihistamines, and some prescription medicines. Do not take any medicine unless your health care provider has approved. If you were given an indwelling urinary catheter, take care of it as told by your health care provider. Drink enough fluid to keep your urine clear or pale yellow. If you were prescribed an antibiotic, take it as told by your health care provider. Do not stop taking the antibiotic even if you start to feel better. Do not use any products that contain nicotine or tobacco, such as cigarettes and e-cigarettes. If you need help quitting, ask your health care provider. Monitor any changes in your symptoms. Tell your health care provider about any changes. If instructed, monitor your blood pressure at home. Report changes as told by your health care provider. Keep all follow-up visits as told by your health care provider. This is important. Contact a health care provider if: You have uncomfortable bladder contractions that you cannot control (spasms) or you leak urine withthe spasms. Get help right away if: You have chills or fever. You have blood in your urine. You have a catheter and: ?Your catheter stops draining urine. ?Your catheter falls out. Summary Acute urinary retention is a condition in which a person is unable to pass urine. If left untreated, it can result in kidney damage or other serious complications. The cause of this condition may include an enlarged prostate. As men age, their prostate gland may become larger and may start pressing or squeezing on the bladder or the urethra. Treatment for this condition may include medicines and placement of an indwelling urinary catheter. Monitor any changes in your symptoms. Tell your health care provider about any changes. This information is not intended to replace advice given to you by your health care provider. Make sure you discuss any questions you have with your health care provider. Document Released: 07/23/2001 Document Revised: 03/29/2018 Document Reviewed: 05/18/2017 [employer] Patient Education 2020 [employer]. 08/23/2021 07:57:46 Benign Prostatic Hyperplasia Benign Prostatic Hyperplasia Benign prostatic hyperplasia (BPH) is an enlarged prostate gland that is caused by the normal agingprocess and not by cancer. The prostate is a walnut-sized gland that is involved in the production of semen. It is located in front of the rectum and below the bladder. The bladder stores urine and the urethra is the tube that carries the urine out of the body. The prostate may get bigger as a man gets older. An enlarged prostate can press on the urethra. This can make it harder to pass urine. The build-up of urine in the bladder can cause infection. Back pressure and infection may progress to bladder damage and kidney (renal) failure. What are the causes? This condition is part of a normal aging process. However, not all men develop problems from this condition. If the prostate enlarges away from the urethra, urine flow will not be blocked. If it enlarges toward the urethra and compresses it, there will be problems passing urine. What increases the risk? This condition is more likely to develop in men over the age of 50 years. What are the signs or symptoms? Symptoms of this condition include: Getting up often during the night to urinate. Needing to urinate frequently during the day. Difficulty starting urine flow. Decrease in size and strength of your urine stream. Leaking (dribbling) after urinating. Inability to pass urine. This needs immediate treatment. Inability to completely empty your bladder. Pain when you pass urine. This is more common if there is also an infection. Urinary tract infection (UTI). How is this diagnosed? This condition is diagnosed based on your medical history, a physical exam, and your symptoms. Tests will also be done, such as: A post-void bladder scan. This measures any amount of urine that may remain in your bladder after you finish urinating. A digital rectal exam. In a rectal exam, your health care provider checks your prostate by putting a lubricated, gloved finger into your rectum to feel the back of your prostate gland. This exam detects the size of your gland and any abnormal lumps or growths. An exam of your urine (urinalysis). A prostate specific antigen (PSA) screening. This is a blood test used to screen for prostate cancer. An ultrasound. This test uses sound waves to electronically produce a picture of your prostate gland. Your health care provider may refer you to a specialist in kidney and prostate diseases (urologist). How is this treated? Once symptoms begin, your health care provider will monitor your condition (active surveillance or watchful waiting). Treatment for this condition will depend on the severity of your condition. Treatment may include: Observation and yearly exams. This may be the only treatment needed if your condition and symptoms are mild. Medicines to relieve your symptoms, including: ?Medicines to shrink the prostate. ?Medicines to relax the muscle of the prostate. Surgery in severe cases. Surgery may include: ?Prostatectomy. In this procedure, the prostate tissue is removed completely through an open incision or with a laparoscope or robotics. ?Transurethral resection of the prostate (TURP). In this procedure, a tool is inserted through the opening at the tip of the penis (urethra). It is used to cut away tissue of the inner core of the prostate. The pieces are removed through the same opening of the penis. This removes the blockage. ?Transurethral incision (TUIP). In this procedure, small cuts are made in the prostate. This lessens the prostate's pressure on the urethra. ?Transurethral microwave thermotherapy (TUMT). This procedure uses microwaves to create heat. The heat destroys and removes a small amount of prostate tissue. ?Transurethral needle ablation (TUNA). This procedure uses radio frequencies to destroy and remove a small amount of prostate tissue. ?Interstitial laser coagulation (ILC). This procedure uses a laser to destroy and remove a small amount of prostate tissue. ?Transurethral electrovaporization (TUVP). This procedure uses electrodes to destroy and remove a small amount of prostate tissue. ?Prostatic urethral lift. This procedure inserts an implant to push the lobes of the prostate away from the urethra. Follow these instructions at home: Take [id number] and prescription medicines only as told by your health care provider. Monitor your symptoms for any changes. Contact your health care provider with any changes. Avoid drinking large amounts of liquid before going to bed or out in public. Avoid or reduce how much caffeine or alcohol you drink. Give yourself time when you urinate. Keep all follow-up visits as told by your health care provider. This is important. Contact a health care provider if: You have unexplained back pain. Your symptoms do not get better with treatment. You develop side effects from the medicine you are taking. Your urine becomes very dark or has a bad smell. Your lower abdomen becomes distended and you have trouble passing your urine. Get help right away if: You have a fever or chills. You suddenly cannot urinate. You feel lightheaded, or very dizzy, or you faint. There are large amounts of blood or clots in the urine. Your urinary problems become hard to manage. You develop moderate to severe low back or flank pain. The flank is the side of your body between the ribs and the hip. These symptoms may represent a serious problem that is an emergency. Do not wait to see if the symptoms will go away. Get medical help right away. Call your local emergency services (911 in the [place] Do not drive yourself to the hospital. Summary Benign prostatic hyperplasia (BPH) is an enlarged prostate that is caused by the normal aging process and not by cancer. An enlarged prostate can press on the urethra. This can make it hard to pass urine. This condition is part of a normal aging process and is more likely to develop in men over the age of 50 years. Get help right away if you suddenly cannot urinate. This information is not intended to replace advice given to you by your health care provider. Make sure you discuss any questions you have with your health care provider. Document Released: 04/16/2006 Document Revised: 03/11/2019 Document Reviewed: 05/21/2017 [employer] Patient Education 2020 [employer]. Follow Up Care 08/09/2021 14:26:14 With:Edward CALLOWAY MD, URL Address: [facility] [address], [place] [address]- When:02/22/2022 Comments:[facility] Evaluation + Plan note Future Appointments Appointment Date:02/28/2022 08:45:00 AM Scheduled Provider:Edward CALLOWAY MD Location:[facility] Appointment Type:URO Office Visit [facility] Evaluation + Plan note Future Appointments Appointment Date:08/30/2022 01:15:00 PM Scheduled Provider:Edward CALLOWAY MD Location:[facility] Appointment Type:URO Office Visit Diagnostic Tests Pending * PSA Total 02/28/22 [facility] Evaluation + Plan note Future Appointments Appointment Date:11/22/2022 10:15:00 AM Scheduled Provider:Edward CALLOWAY MD Location:[facility] Appointment Type:URO Office Visit Diagnostic Tests Pending * PSA Total 08/30/22 [facility] Evaluation + Plan note Future Appointments Appointment Date:06/06/2023 10:45:00 AM Scheduled Provider:Edward CALLOWAY MD Location:[facility] Appointment Type:URO Office Visit [facility] evaluation noteNo assessment information available [facility] Work Phone: Evaluation note* Diagnosis Onset Date Resolution Status Iron deficiency acute [facility] Work Phone: Evaluation note* Diagnosis Onset Date Resolution Status Dysplastic colon polyp chron ic Iron deficiency chronic Urolithiasis chronic [facility] Work Phone: Hospital course Narrative No data available for this section [facility] Discharge instructions Additional Instructions The eye will slowly reabsorb the blood If you suddenly develop loss of vision pain foreign body sensation in the eye scratching of the eye purulent discharge return to the ER or follow-up with [facility] You should follow-up with [facility] for regular eye exam Return to the ER for loss of vision severe pain severe drainage fever or any other [facility] Work Phone: Hospital Discharge instructions Additional Instructions Your COVID antigen in emergency department was negative today. You have a Cepheid pending. Do good handwashing. Rest. Tylenol or Motrin if needed for pain Follow-up with your family doctor You will be called with any positive results Return if any problems persist or worsen [facility] Work [facility]: Hospital Discharge instructions Additional Instructions If your symptoms return/worsen or you develop any further concerns or symptoms please see your doctor or return to the emergency department immediately.[facility] Work Phone: Hospital Discharge instructions Additional Instructions Follow-up with your primary care doctor [facility] develop [facility] Discharge instructions Additional Instructions Your urine is undergoing a culture if it grows bacteria with antibiotics will be called in Follow-up with your family doctor Return to the ER for worsening pain fever chills unable to urinate or any [facility] Work Phone: Progress note No data available for this section [facility] Summary Purpose Family History No Family History Records Found Relationship Condition Age at Onset Recorded Date/T katharina father Hypertension Unknown Cerebrovascular accident (CVA) Unknown Malignant neoplasm of prostate Unknown Not Specified Type 2 diabetes mellitus Unknown Hypertension Unknown Advance Directives No Advanced Directives Records Found Advance Directive Response Recorded Date/ Time Advance Directives No February 06, 2017 11:52am Advance Directive Response Recorded Date/ Time Advance Directives No February 06, 2017 10:52am Chief Complaint and Reason for Visit Chief Complaint left pointer finger swollen due to bee sting. Chief Complaint left pointer finger swollen due to bee sting. N20.0 N20.0 N40.1 R35.1 Chief Complaint rt eye redness Chief Complaint rt eye redness Essential (primary) hypertension;Hyperlipidemia, u Chief Complaint rt eye redness r55 flu like sx, covid test + Chief Complaint rt eye redness r55 flu like sx, covid test + fall, nose injury Z11.59 Chief Complaint rt eye redness r55 flu like sx, covid test + fall, nose injury Z11.59 Penis inj/ in zipper Chief Complaint flu like sx, covid t est + fall, nose injury Z11.59 Penis inj/ in zipper allergic reaction Iron deficiency Chief Complaint fall, nose injury Z11.59 Penis inj/ in zipper allergic reaction Iron deficiency Iron Deficiency Anemia Chief Complaint fall, nose injury Z11.59 Penis inj/ in zipper allergic reaction Iron deficiency Iron Deficiency Anemia N20.0 Reason for Visit Iron deficiency Chief Complaint fall, nose injury Z11.59 Penis inj/ in zipper allergic reaction Iron deficiency Iron Deficiency Anemia N20.0 Black stool Reason for Visit Iron deficiency Chief Complaint n40.1 n20.0 n39.0 Iron Deficiency Anemia Reason for Visit Iron deficiency Chief Complaint Iron Deficiency Anem ia Lower abd pain, Painful urination hx Hernia Reason for Visit Dysplastic colon sarah yp Iron deficiency Urolithiasis Chief Complaint Iron Deficiency Anem ia Lower abd pain, Painful urination hx Hernia Blood in Urine Reason for Visit Dysplastic colon sarah yp Iron deficiency Urolithiasis Chief Complaint Iron Deficiency Anem ia Lower abd pain, Painful urination hx Hernia Blood in Urine abd pain Reason for Visit Dysplastic colon sarah yp Iron deficiency Urolithiasis Chief Complaint Lower abd pain, Pain ful urination hx Hernia Blood in Urine abd pain sent by Chief Complaint Lower abd pain, Pain ful urination hx Hernia Blood in Urine abd pain sent by dr n20.0 Chief Complaint Lower abd pain, Pain ful urination hx Hernia Blood in Urine abd pain sent by n20.0 D50.9 Additional Source Comments (unrecognized sect ion and content) No Status Records FoundNo Status Records FoundNo Status Records Found INFORMATION SOURCE (unrecogn ized section and content) DATE CREATED AUTHOR 03/17/2021 [facility] DATE CREATED AUTHOR AUTHOR'S ORGANIZ ATION 07/14/2023 [facility] DATE CREATED AUTHOR AUTHOR'S ORGANIZ ATION 07/21/2023 [facility] Care Teams (unrecognized sec tion and content) Team Status: Active Member Role Status Dates Services [facility] Primary Care Provider Active Team Status: Inactive Member Role Status Dates Services [facility] Primary Care Provider Active Juaquin Mendez DO Emergency Provider Active Team Status: Active Member Role Status Dates Che De Leon APRN Attending Provider Active Boris Zayas DO RES Referring Provider Active Services [facility] Primary Care Provider Active Team Status: Inactive Member Role Status Dates Services [facility] Primary Care Provider Active Edward Calloway MD Attending Provider Active Team Status: Inactive Member Role Status Dates Boris Zayas DO RES Attending Provider Active Team Status: Inactive Member Role Status Dates Services [facility] Primary Care Provider Active Kylie Box , [employer]- Emergency Provider Active Team Status: Inactive Member Role Status Dates Services [facility] Primary Care Provider Active Florentin Moeller APRN Emergency Provider Active Team Status: Inactive Member Role Status Dates Services [facility] Primary Care Provider Active Clare Fregoso APRN Emergency Provider Active Team Status: Inactive Member Role Status Dates Boris Zayas DO RES Referring Provider Active Manfred Foster DO Attending Provider Active Team Status: Inactive Member Role Status Dates Services [facility] Primary Care Provider Active Edward Sandoval DO Emergency Provider Active Team Status: Inactive Member Role Status Dates Services [facility] Primary Care Provider Active Corie Dee MD Attending Provider Active Boris Zayas , DO RES Other Provider Active Team Status: Inactive Member Role Status Dates Services [facility] Primary Care Provider Active Phil Castaneda DO Emergency Provider Active Team Status: Inactive Member Role Status Dates Services [facility] Primary Care Provider Active Elicia Malone Jr, MD Emergency Provider Active Team Status: Inactive Member Role Status Dates Boris Zayas , DO RES Attending Provider Active PHYSICIAN [facility] FAMILY Primary Care Provider Active Team Status: Inactive Member Role Status Dates Services [facility] Primary Care Provider Active Valerio Tee PA-C Emergency Provider Active Team Status: Inactive Member Role Status Dates Services [facility] Primary Care Provider Active Start: April 21, 2023 End: April 21, 2023 Juaquin Mendez DO Emergency Provider Active Sta rt: April 21, 2023 End: April 21, 2023 Team Status: Inactive Member Role Status Dates Services [facility] Primary Care Provider Active Start: April 27, 2023 End: April 27, 2023 Valerio Tee PA-C Emergency Provider Active Start: April 27, 2023 End: April 27, 2023 Team Status: Inactive Member Role Status Dates Services [facility] Primary Care Provider Active Start: May 08, 2023 End: May 09, 2023 Phil Castaneda DO Emergency Provider Active Start: May 08, 2023 End: May 09, 2023 Team Status: Inactive Member Role Status Dates Services [facility] Primary Care Provider Active Start: June 13, 2023 End: June 13, 2023 Kylie Box [facility] Emergency Provider Active Start: June 13, 2023 End: June 13, 2023 Team Status: Inactive Member Role Status Dates Services [facility] Primary Care Provider Active Start: June 22, 2023 End: June 22, 2023 Edward Calloway MD Attending Provider Active St art: June 22, 2023 End: June 22, 2023 Team Status: Inactive Member Role Status Dates Services [facility] Primary Care Provider Active Start: July 19, 2023 End: July 19, 2023 Derrell Ruff - [facility] , Attending Provider [employer] Start: July 19, 2023 End: July 19, 2023 Boris Zayas , RES Other Provider Active Sta rt: July 19, 2023 End: July 19, 2023 Goals (unrecognized section and content) Goals may be documented in a n alternate section FOR RECORDS PERTAINING TO PATIENTS WHO ARE OR HAVE BEEN ENROLLED IN A CHEMICAL DEPENDENCY/SUBSTANCEABUSE PROGRAM, SOME INFORMATION MAY BE OMITTED. This clinical summary was aggregated from multiple sources. Caution should be exercised in using it in the provision of clinical care. This summary normalizes information from multiple sources, and as a consequence, information in this document may materially change the coding, format and clinical context of patient data. In addition, data may be omitted in some cases. CLINICAL DECISIONS SHOULD BE BASED ON THE PRIMARY CLINICAL RECORDS. [employer] provides no warranty or guarantee of the accuracy or completeness of information in this document.
--- NOTE | 2023-07-26 06:45 | XR_ITS ---
The [address] [address] Patient Name: NATHAN ALBARRAN MRN: [id number] date: 1955 Sex: M Assigned Patient Location: [facility] Current Patient Location: [facility] Accession/Order Number: [id number] Exam Date: 07/26/2023 06:40 Report Date: 07/26/2023 07:28 At the request of: EDWARD GILLESPIE Procedure: XR abdomen 1V EXAMINATION: XR abdomen 1V HISTORY: kidney stones COMPARISON: No relevant comparison available. FINDINGS: KIDNEY/URETER - RIGHT: No visible renal or ureteral calcifications. KIDNEY/URETER - LEFT: Suspected lower pole nephrolith measuring 7 mm PELVIS: No visible ureteral calcifications. Any visible calcifications favor phleboliths. BOWEL: No abnormal dilation or deviation. BONES: No acute abnormality. Moderate degenerative spondylosis. Bilateral hip osteoarthropathy OTHER: Negative. No abnormal gaseous collections. XR/XR abdomen 1V IMPRESSION: Left nephrolithiasis Electronically authenticated by: NATHAN MATTA Date: 07/26/2023 07:28
[2023-07-26 07:13] LABS: Glucometer 112 mg/dL (74-106)
[2023-07-26] MEDS: LACTATED RINGER'S SOLUTION 1,000 ML 50 ML IV ×2 (07:24→09:52)
[2023-07-26] MEDS: CEFAZOLIN SODIUM/DEXTROSE,ISO 1 GM/50 ML IV.SOLN IV (07:48)
--- NOTE | 2023-07-26 08:25 | PM.URSON ---
Urology Surgery Operative Note Operative Note Procedure Date: 07/26/23 Time Out Performed: yes Pre-op Diagnosis: Left nephrolithiasis Post-op Diagnosis: same as pre-op Procedures performed: 1. Left ESWL. Anesthesia: General-LMA Primary Surgeon: Daryl Calloway Complications: None Estimated blood loss (mL): 0 Findings: Lower pole left renal calculus Specimens: None Drains: None Indications for Procedures: This gentleman has recurrent left nephrolithiasis. His stone is 6 to 7 mm and nonobstructing. He now presents for left ESWL. He has signed an informed consent after all risks were explained. Some of these risks include bleeding, perinephric hematoma, infection and anesthesia to name a few. Detailed description of Procedure: The patient was brought to the Operating Room and placed on Siemens electromagnetic lithotripsy treatment table in the supine position. SCDs were placed on their lower extremities and turned on and functioning during the entire case. Timeout was done by all parties in the room. We all agreed upon the patient's identification and the planned procedures for this patient. General Anesthesia was then administered via LMA. Treatment head was then brought to the patient's correct side. While using flourscopy the stone was identified and lined up into the crosshairs. We then began applying shocks. We started at power level 2.0 and increased to a maximum power level of 3.5. Intermittent fluoroscopy revealed that the stone was quick to fragment. Within the first 1000 shocks the stone was fragmented nearly 75%. We gave a total of 2000 shocks. Our last fluoroscopic image revealed no remaining evidence of formed stone. The procedure was then terminated. He was then transferred [facility] and wheeled to PACU in stable condition.
--- NOTE | 2023-07-26 09:57 | PC.NURSE ---
pATIENT IS COMFORTABLE DENIES ANY PAIN. wAITING ON HIM TO FEEL LIKE HE HAS TO URINATE. DENIES ANY NEEDS AT THIS TIME
== END 2023-07-26 11:06 | disposition home or self-care (01) ==
PROVIDERS: Visit Provider Urology
PROC: (CPT 50590; principal; 2023-07-26 08:00)
DX: N20.0 Calculus of kidney (principal); M19.90 Unspecified osteoarthritis, unspecified site; G40.909 Epilepsy, unspecified, not intractable, without status epilepticus; F32.A Depression, unspecified; R41.3 Other amnesia; Z86.73 Personal history of transient ischemic attack (TIA), and cerebral infarction without residual deficits; I10 Essential (primary) hypertension; E11.9 Type 2 diabetes mellitus without complications; Z79.01 Long term (current) use of anticoagulants; Z79.84 Long term (current) use of oral hypoglycemic drugs; N40.1 Benign prostatic hyperplasia with lower urinary tract symptoms; R30.0 Dysuria; R31.0 Gross hematuria; R35.1 Nocturia; Z87.442 Personal history of urinary calculi; Z87.440 Personal history of urinary (tract) infections; N41.9 Inflammatory disease of prostate, unspecified; Z90.49 Acquired absence of other specified parts of digestive tract; Z79.82 Long term (current) use of aspirin; F17.210 Nicotine dependence, cigarettes, uncomplicated
CPT/HCPCS: 50590; 36415; 74018; J1094; J2704